=== PATIENT | male | born 1955 | race Caucasian/White ===

== ENCOUNTER 2018-10-26 18:47 | Inpatient (IN) | payer MEDICAID ==
[~2018-10-26] VITALS: Ht 180.3 cm; Wt 72.2 kg
--- NOTE | 2018-10-26 19:04 | NUR ---
ED Nurse Note: Pt biba lafd for C/O swelling of testicles and distended abd x 2 weeks ago. pt is alert x3.
[2018-10-26 19:08] VITALS: BP 130/82
--- NOTE | 2018-10-26 19:43 | Emergency Room Report ---
History of Present Illness General Chief Complaint: Pain Source: Patient Present Illness HPI Disclaimer: Please note that this report is being documented using DRAGON technology. This can lead to erroneous entry secondary to incorrect interpretation by the dictating instrument. HPI: 63-year-old male with no reported medical history presents for evaluation of scrotal edema and pain as well as difficulty breathing. Symptoms is been present for some time cannot fully quantify but states it is been at least a week. He notes worsening exertional dyspnea, shortness of breath and general without chest pain. He notes diffuse swelling of the skin from his abdomen down and enlargement of his scrotum with some pain. Reports some pain with urination. Denies any medical history including heart disease, CHF, COPD. He does smoke and states he quit 1 week ago. Denies alcohol use. Denies any recent fevers, chills, vomiting, diarrhea. PMH: None PSH: None Allergies: None Social Hx: Uses tobacco. Denies drugs or alcohol Allergies: Coded Allergies: No Known Allergies (Unverified , 10/26/18) Nursing Documentation-PMH History Of Psychiatric Problem: Yes - Schizophrenia Review of Systems All Other Systems: negative except mentioned in HPI Physical Exam Vital Signs Date Time Temp Pulse Resp B/P (MAP) Pulse Ox O2 Delivery O2 Flow Rate FiO2 10/26/18 18:59 97.7 114 18 115/82 (93) 98 Room Air General: Awake and alert, in mild distress HEENT: NC/AT. EOMI. dry mucous membrane. Neck: Supple, trachea midline Chest Wall: No tenderness, no deformity Cardiovascular: Tachycardic. S1 and S2 normal. No murmur appreciated Resp: Tachypnea. Increased work of breathing. No cough. Crackles bilaterally. No wheezing. Abdomen: Abdomen is distended. Nontender to palpation. Diffuse anasarca Skin: Diffuse anasarca over the entire abdomen and over the lower extremities bilaterally. Testicular enlargement. MSK: Normal tone and bulk. Moving all extremities. No obvious deformity. Neuro: Awake and alert. Mentating appropriately. Procedures Critical Care Time Critical Care Time Total critical care time: Approximately 45 minutes Due to a high probability of clinically significant, life threatening deterioration, the patient required the highest level of preparedness to intervene emergently and I personally spent this critical care time directly and personally managing the patient. This critical care time included obtaining a history, examining the patient, pulse oximetry, ordering and reviewing studies , ordering treatments, evaluating response to treatment and updating management plan as needed, frequent reassessment and discussion with other providers as well as arranging for ultimate disposition. This critical to care time was performed to assess and manage the high probability of life-threatening deterioration that could result in multiorgan failure. This critical care time is separate from the separately billable procedures and treating other patients. Ultrasound Ultrasound : Consent: Emergent Progress This is a procedure note for bedside cardiac ultrasound. Findings include cardiomegaly, trace pericardial effusion without significant right ventricle or right atrial collapse. Left ventricle appears somewhat enlarged. Medical Decision Making Diagnostic Impression: Primary Impression: AMRIT (acute kidney injury) Additional Impressions: CHF (congestive heart failure) Pericardial effusion Pleural effusion Pneumonia ER Course 33-year-old male presents for evaluation of shortness of breath, lower extremity edema, scrotal pain and swelling at least for 1 week. Patient has diffuse anasarca however there is abdomen and lower extremities. Differential includes but is not limited to new renal failure, hepatic failure, CHF, ACS, COPD. We will start a broad metabolic and infectious work-up. Patient will require admission. Laboratory Tests Test 10/26/18 19:30 10/26/18 19:59 10/26/18 21:40 White Blood Count 7.7 K/UL (4.8-10.8) Red Blood Count 5.33 M/UL (4.70-6.10) Hemoglobin 16.4 G/DL (14.2-18.0) Hematocrit 49.6 % (42.0-52.0) Mean Corpuscular Volume 93 FL (80-99) Mean Corpuscular Hemoglobin 30.8 PG (27.0-31.0) Mean Corpuscular Hemoglobin Concent 33.1 G/DL (32.0-36.0) Red Cell Distribution Width 13.8 % (11.6-14.8) Platelet Count 205 K/UL (150-450) Mean Platelet Volume 8.0 FL (6.5-10.1) Neutrophils (%) (Auto) 66.8 % (45.0-75.0) Lymphocytes (%) (Auto) 21.5 % (20.0-45.0) Monocytes (%) (Auto) 8.9 % (1.0-10.0) Eosinophils (%) (Auto) 1.4 % (0.0-3.0) Basophils (%) (Auto) 1.4 % (0.0-2.0) Prothrombin Time 12.8 SEC (9.30-11.50) H Prothrombin Time INR 1.2 (0.9-1.1) H PTT 27 SEC (23-33) Sodium Level 145 MMOL/L (136-145) Potassium Level 5.2 MMOL/L (3.5-5.1) H Chloride Level 109 MMOL/L (98-107) H Carbon Dioxide Level 28 MMOL/L (21-32) Anion Gap 8 mmol/L (5-15) Blood Urea Nitrogen 31 mg/dL (7-18) H Creatinine 1.4 MG/DL (0.55-1.30) H Estimate Glomerular Filtration Rate 51.4 mL/min (>60) Glucose Level 79 MG/DL (74-106) Calcium Level 9.4 MG/DL (8.5-10.1) Total Bilirubin 1.8 MG/DL (0.2-1.0) H Direct Bilirubin 0.8 MG/DL (0.0-0.3) H Aspartate Amino Transferase (AST) 33 U/L (15-37) Alanine Aminotransferase (ALT) 53 U/L (12-78) Alkaline Phosphatase 108 U/L (46-116) Total Creatine Kinase 100 U/L (26-308) Creatine Kinase MB 2.6 NG/ML (0.0-3.6) Creatine Kinase MB Relative Index 2.6 Troponin I 0.023 ng/mL (0.000-0.056) Pro-B-Type Natriuretic Peptide 76375 pg/mL (0-125) H Total Protein 6.5 G/DL (6.4-8.2) Albumin 3.3 G/DL (3.4-5.0) L Globulin 3.2 g/dL Albumin/Globulin Ratio 1.0 (1.0-2.7) Lipase 275 U/L (73-393) Arterial Blood pH 7.427 (7.350-7.450) Arterial Blood Partial Pressure CO2 34.3 mmHg (35.0-45.0) L Arterial Blood Partial Pressure O2 174.9 mmHg (75.0-100.0) H Arterial Blood HCO3 22.1 mmol/L (22.0-26.0) Arterial Blood Oxygen Saturation 99.0 % (95-100) Arterial Blood Base Excess -1.5 (-2-2) Alexi Test Positive Urine Color Yellow Urine Appearance Clear Urine pH 6 (4.5-8.0) Urine Specific [place] 1.015 (1.005-1.035) Urine Protein 2+ (NEGATIVE) H Urine Glucose (UA) Negative (NEGATIVE) Urine Ketones Negative (NEGATIVE) Urine Blood Negative (NEGATIVE) Urine Nitrite Negative (NEGATIVE) Urine Bilirubin Negative (NEGATIVE) Urine Urobilinogen 1 MG/DL (0.0-1.0) H Urine Leukocyte Esterase Negative (NEGATIVE) Urine RBC 0 /HPF (0 - 0) Urine WBC 0 /HPF (0 - 0) Urine Squamous Epithelial Cells None /LPF (NONE/OCC) Urine Amorphous Sediment Few /LPF (NONE) H Urine Bacteria Occasional /HPF (NONE) EKG Diagnostic Results EKG Time: 19:45 Rate: tachycardiac Rhythm: NSR Other Impression Sinus tachycardia rate 115 bpm, prolonged QTC at 522 ms, normal axis. Low voltage in the limb leads and left bundle branch block pattern in the precordial leads. Rhythm Strip Diag. Results Rhythm Strip Time: 19:45 EP Interpretation: yes Rate: 110s Rhythm: no PVC's, no ectopy Chest X-Ray Diagnostic Results Chest X-Ray Diagnostic Results : # of Views/Limited/Complete: 1 View Indication: Shortness of Breath EP Interpretation: Yes Interpretation: other - Cardiomegally, bilateral congestion, RLL effusion Impression: Other - Right-sided effusion, cardiomegaly, questionable infiltrate in the right lower lobe Electronically Signed by: Electronically signed by Dr. Korey Scott Reevaluation Time: 22:15 Last Vital Signs Date Time Temp Pulse Resp B/P (MAP) Pulse Ox O2 Delivery O2 Flow Rate FiO2 10/26/18 18:59 97.7 114 18 115/82 (93) 98 Room Air Reevaluation Impression EKG shows a left bundle branch block pattern with a elevated QTC. There is no prior for comparison. Limb leads have low voltage. Patient is found to have a right-sided pleural effusion, cardiomegaly elevated BN peptide with a negative troponin. A bedside ultrasound shows a trace pericardial effusion that does not appear to be hemodynamically significant. The left ventricle does seem somewhat enlarged concerning for new heart failure. He is responding well to Lasix. CTA of the chest was ordered for evaluate for pulmonary embolism however was not completed prior to the patient being taken to the floor and will be completed on the floor as an inpatient. Admitting team is aware. Admitting team has also ordered antibiotics for the possible right lower lobe infiltrate. White count is within normal limits. He will be admitted to the stepdown unit for close monitoring and further management. Disposition: ADMITTED INPATIENT Condition: Serious Korey Scott MD Oct 26, 2018 19:43
[2018-10-26] MEDS ORDERED: Ipratropium 0.02% Inh Soln 2.5ml UD HHN ONE (19:45)
[2018-10-26] MEDS: Albuterol ud Inhalation HHN SCH ×3 (19:51→20:24)
--- NOTE | 2018-10-26 19:54 | NUR ---
ED Nurse Note: xray a bed side
--- NOTE | 2018-10-26 19:54 | NUR ---
ED Nurse Note: blood sent down to lab
--- NOTE | 2018-10-26 20:02 | NUR ---
ED Nurse Note: pt unable to urinate and unable to be cath due to swelling. pt will notify us when he is ready to urinatet so urine can be collected. ER MD aware
[2018-10-26 20:13] LABS: BASOPHILS % (AUTO) 1.4 % (0.0-2.0); EOSINOPHILS % (AUTO) 1.4 % (0.0-3.0); HEMATOCRIT 49.6 % (42.0-52.0); HEMOGLOBIN 16.4 G/DL (14.2-18.0); LYMPHOCYTES % (AUTO) 21.5 % (20.0-45.0); MEAN CORPUSCULAR VOLUME 93 FL (80-99); MONOCYTES % (AUTO) 8.9 % (1.0-10.0); NEUTROPHILS % (AUTO) 66.8 % (45.0-75.0); PLATELET COUNT 205 K/UL (150-450); RED BLOOD COUNT 5.33 M/UL (4.70-6.10); RED CELL DISTRIBUTION WIDTH 13.8 % (11.6-14.8); WHITE BLOOD COUNT 7.7 K/UL (4.8-10.8)
[2018-10-26 20:16] LABS: INR 1.2 (0.9-1.1)
[2018-10-26 20:18] LABS: ANION GAP 8 mmol/L (5-15); BLOOD UREA NITROGEN 31 mg/dL (7-18); CALCIUM 9.4 MG/DL (8.5-10.1); CARBON DIOXIDE 28 MMOL/L (21-32); CHLORIDE 109 MMOL/L (98-107); CREATININE 1.4 MG/DL (0.55-1.30); POTASSIUM 5.2 MMOL/L (3.5-5.1); SODIUM 145 MMOL/L (136-145)
[2018-10-26 20:34] LABS: ALANINE AMINOTRANSFERASE 53 U/L (12-78); ALBUMIN 3.3 G/DL (3.4-5.0); ALKALINE PHOSPHATASE 108 U/L (46-116); ASPARTATE AMINO TRANSFERASE 33 U/L (15-37); BILIRUBIN,TOTAL 1.8 MG/DL (0.2-1.0); CKMB 2.6 NG/ML (0.0-3.6); CREATINE KINASE 100 U/L (26-308)
[2018-10-26 20:35] LABS: BILIRUBIN,DIRECT 0.8 MG/DL (0.0-0.3)
[2018-10-26] MEDS ORDERED: OLANZAPINE20 MG ORAL (21:38)
--- NOTE | 2018-10-26 21:40 | NUR ---
ED Nurse Note: urine sample sent down to lab
--- NOTE | 2018-10-26 22:25 | NUR ---
ER DISCHARGE NOTE: pt brought up to SDU rm 242 via gurney accompanied by 2 RNs in stable condition. Belonging list signed. report given to CINTHYA Kelsey
--- NOTE | 2018-10-26 22:30 | NUR ---
NURSE NOTES: Pt brought to the unit via [facility]. Report received from CINTHYA Henderson. Belonging checked with the RN. Skin intact. V/S 118/80, P 108, T 97.8, R 20, SaO2 95% Will put NC O2 2L. ST on bus monitor. Abd round and distended noted. Scrotal area swollen noted. BLE edema noted, pitting edema 3+ noted. IV on L AC 20G, SL. Bed in the lowest position. Side rails up x2. Call light within reach. Will continue to monitor.
--- NOTE | 2018-10-26 22:40 | NUR ---
NURSE NOTES: at the bed side and give admitting orders.
[2018-10-26] MEDS ORDERED: Isovue-370 150ml vial INJ PRN (22:45)
[2018-10-26 22:48] LABS: APPEARANCE,URINE CLEAR; BILIRUBIN, URINE NEGATIVE (NEGATIVE); COLOR,URINE YELLOW; GLUCOSE, URINE (UA) NEGATIVE (NEGATIVE); KETONES,URINE NEGATIVE (NEGATIVE); LEUKOCYTE ESTERASE ,URINE NEGATIVE (NEGATIVE); NITRITE,URINE NEGATIVE (NEGATIVE); PH,URINE 6 (4.5-8.0); PROTEIN,URINE 2+ (NEGATIVE); UROBILINOGEN,URINE 1 MG/DL (0.0-1.0)
[2018-10-27] VITALS: BP 111/75
[2018-10-27] MEDS: cefTRIAXone 1 GM in D5W 55 ML IVPB SCH ×2 (00:50→23:44)
--- NOTE | 2018-10-27 02:23 | NUR ---
NURSE NOTES: Observed pt watching television. No acute distress noted. SR with immigration specialist noted. Will continue to monitor.
[2018-10-27 04:00] VITALS: BP 107/66
[2018-10-27 04:49] LABS: EOSINOPHILS % (AUTO) 1.2 % (0.0-3.0); HEMATOCRIT 43.9 % (42.0-52.0); HEMOGLOBIN 13.9 G/DL (14.2-18.0); LYMPHOCYTES % (AUTO) 20.7 % (20.0-45.0); MEAN CORPUSCULAR VOLUME 96 FL (80-99); MONOCYTES % (AUTO) 10.9 % (1.0-10.0); NEUTROPHILS % (AUTO) 66.2 % (45.0-75.0); PLATELET COUNT 171 K/UL (150-450); RED BLOOD COUNT 4.56 M/UL (4.70-6.10); RED CELL DISTRIBUTION WIDTH 14.2 % (11.6-14.8); WHITE BLOOD COUNT 6.7 K/UL (4.8-10.8)
[2018-10-27 05:01] LABS: ANION GAP 7 mmol/L (5-15); BLOOD UREA NITROGEN 29 mg/dL (7-18); CALCIUM 8.5 MG/DL (8.5-10.1); CARBON DIOXIDE 30 MMOL/L (21-32); CHLORIDE 109 MMOL/L (98-107); CREATININE 1.3 MG/DL (0.55-1.30); POTASSIUM 3.8 MMOL/L (3.5-5.1); SODIUM 146 MMOL/L (136-145)
--- NOTE | 2018-10-27 07:23 | NUR ---
HAND-OFF: Report given to Keyana fontenot RN. No acute distress noted at this time.
--- NOTE | 2018-10-27 07:30 | NUR ---
NURSE NOTES: Received the patient from CINTHYA Kelsey. Patient is awake, alert and oriented. Ambulated to the bathroom with assist. Patient on room air. SR-ST 110s noted on the surveillance system monitor. VSS. Patient noted with bilateral lower extremities and scrotum. Left AC 20G intact, saline locked. Bed in lowest position, locked, side rails upx2. Call light within reach. Will continue to monitor.
--- NOTE | 2018-10-27 07:37 | General Progress Note ---
Assessment/Plan Problem List: (1) CHF (congestive heart failure) ICD Codes: I50.9 - Heart failure, unspecified SNOMED: 49167401 (2) Pericardial effusion ICD Codes: I31.3 - Pericardial effusion (noninflammatory) SNOMED: 412169671 (3) Pleural effusion ICD Codes: J90 - Pleural effusion, not elsewhere classified SNOMED: 17339187 (4) Pneumonia ICD Codes: J18.9 - Pneumonia, unspecified organism SNOMED: 860156527 (5) AMRIT (acute kidney injury) ICD Codes: N17.9 - Acute kidney failure, unspecified SNOMED: 5917121, 46796869 Assessment/Plan: drug screen hepatitis panel fu pulm and cardiology recs colace Subjective ROS Limited/Unobtainable: Yes Allergies: Coded Allergies: No Known Allergies (Unverified , 10/26/18) Subjective c/o SOB Objective Last 24 Hour Vital Signs Date Time Temp Pulse Resp B/P (MAP) Pulse Ox O2 Delivery O2 Flow Rate FiO2 10/27/18 04:00 Nasal Cannula 2.0 10/27/18 04:00 97.5 94 28 107/66 (80) 98 10/27/18 04:00 96 10/27/18 04:00 2.0 10/27/18 00:00 2.0 10/27/18 00:00 Nasal Cannula 2.0 10/27/18 00:00 105 10/27/18 00:00 97.2 99 28 111/75 (87) 98 10/26/18 23:09 Nasal Cannula 2.0 10/26/18 22:25 98.0 118 22 144/88 99 Room Air 10/26/18 20:36 120 20 100 Room Air 21 120 20 100 10/26/18 20:25 120 20 100 Room Air 21 119 20 100 10/26/18 20:11 119 20 100 Room Air 21 113 20 96 10/26/18 19:50 113 20 96 Room Air 21 10/26/18 19:08 98.0 118 25 130/82 100 Room Air 10/26/18 18:59 97.7 114 18 115/82 (93) 98 Room Air Intake and Output 10/26/18 10/27/18 18:59 06:59 Intake Total 55 ml Output Total 800 ml Balance -745 ml Intake Oral 0 ml IV Total 55 ml Output Urine Total 800 ml # Voids 8 Laboratory Tests 10/26/18 19:30: White Blood Count 7.7, Red Blood Count 5.33, Hemoglobin 16.4, Hematocrit 49.6, Mean Corpuscular Volume 93, Mean Corpuscular Hemoglobin 30.8, Mean Corpuscular Hemoglobin Concent 33.1, Red Cell Distribution Width 13.8, Platelet Count 205, Mean Platelet Volume 8.0, Neutrophils (%) (Auto) 66.8, Lymphocytes (%) (Auto) 21.5, Monocytes (%) (Auto) 8.9, Eosinophils (%) (Auto) 1.4, Basophils (%) (Auto ) 1.4, Prothrombin Time 12.8H, Prothromb Time International Ratio 1.2H, Activated Partial Thromboplast Time 27, Sodium Level 145, Potassium Level 5.2H, Chloride Level 109H, Carbon Dioxide Level 28, Anion Gap 8, Blood Urea Nitrogen 31H, Creatinine 1.4H, Estimat Glomerular Filtration Rate 51.4, Glucose Level 79 , Calcium Level 9.4, Total Bilirubin 1.8H, Direct Bilirubin 0.8H, Aspartate Amino Transf (AST/SGOT) 33, Alanine Aminotransferase (ALT/SGPT) 53, Alkaline Phosphatase 108, Total Creatine Kinase 100, Creatine Kinase MB 2.6, Creatine Kinase MB Relative Index 2.6, Troponin I 0.023, Pro-B-Type Natriuretic Peptide 90267A, Total Protein 6.5, Albumin 3.3L, Globulin 3.2, Albumin/Globulin Ratio 1.0, Lipase 275 10/26/18 19:59: Arterial Blood pH 7.427, Arterial Blood Partial Pressure CO2 34.3L, Arterial Blood Partial Pressure O2 174.9H, Arterial Blood HCO3 22.1, Arterial Blood Oxygen Saturation 99.0, Arterial Blood Base Excess -1.5, Alexi Test Positive 10/26/18 21:40: Urine Color Yellow, Urine Appearance Clear, Urine pH 6, Urine Specific [place] 1.015, Urine Protein 2+H, Urine Glucose (UA) Negative, Urine Ketones Negative, Urine Blood Negative, Urine Nitrite Negative, Urine Bilirubin Negative, Urine Urobilinogen 1H, Urine Leukocyte Esterase Negative, Urine RBC 0, Urine WBC 0, Urine Squamous Epithelial Cells None, Urine Amorphous Sediment FewH, Urine Bacteria Occasional 10/27/18 02:55: White Blood Count 6.7, Red Blood Count 4.56L, Hemoglobin 13.9L, Hematocrit 43.9 , Mean Corpuscular Volume 96, Mean Corpuscular Hemoglobin 30.5, Mean Corpuscular Hemoglobin Concent 31.7L, Red Cell Distribution Width 14.2, Platelet Count 171, Mean Platelet Volume 8.5, Neutrophils (%) (Auto) 66.2, Lymphocytes (%) (Auto) 20.7, Monocytes (%) (Auto) 10.9H, Eosinophils (%) (Auto) 1.2, Basophils (%) (Auto) 1.0, Sodium Level 146H, Potassium Level 3.8, Chloride Level 109H, Carbon Dioxide Level 30, Anion Gap 7, Blood Urea Nitrogen 29H, Creatinine 1.3, Estimat Glomerular Filtration Rate 55.9, Glucose Level 96, Calcium Level 8.5 Height (Feet): 5 Height (Inches): 11.00 Weight (Pounds): 201 General Appearance: alert EENT: normal ENT inspection Neck: supple Cardiovascular: normal rate Respiratory/Chest: decreased breath sounds Abdomen: normal bowel sounds, non tender, soft Extremities: non-tender Danny Natarajan MD Oct 27, 2018 07:37
[2018-10-27 08:00] VITALS: BP 108/75
--- NOTE | 2018-10-27 08:33 | Pulmonology Progress Note ---
Assessment/Plan Assessment/Plan Pulmonary Consultation HPI Patient is a 63-year old man with admitted with shortness of breath, lower extremity and scrotal edema/pain. Denies cough, no chest pain. Noted to have features of CHF right lower lobe infiltrate/effusion. Symptoms is been present for at least a week. He notes worsening exertional dyspnea, diffuse swelling, has some pain with urination. Denies any medical history including heart disease, CHF, COPD. He does smoke and states he quit 1 week ago. Denies alcohol use. Denies any recent fevers, chills, vomiting, diarrhea. PMH: Schizophrenia Allergies: NKDA Social Hx: Uses tobacco. Denies drugs or alcohol All Other Systems: negative except mentioned in HPI Physical Exam Vital Signs Noted Date Time Temp Pulse Resp B/P (MAP) Pulse Ox O2 Delivery O2 Flow Rate FiO2 10/26/18 18:59 97.7 114 18 115/82 (93) 98 Room Air General: Awake and alert, note distressed on oxygen HEENT: NCAT. EOMI. Neck: Supple, No LN Chest Wall: No tenderness, no deformity Cardiovascular: Tachycardic. RRR. S1 and S2 normal. No murmur noted. Resp: Basal crackles bilaterally. No wheezing. Reduced right basal BS Abdomen: Abdomen is distended. Nontender to palpation. Diffuse anasarca Skin: Diffuse anasarca over the entire abdomen and over the lower extremities bilaterally. Testicular enlargement. MSK: Normal tone and bulk. Moving all extremities. No obvious deformity. Neuro: Awake and alert. No focal signs. Bedside Echo in ED: Findings include cardiomegaly, trace pericardial effusion without significant right ventricle or right atrial collapse. Left ventricle appears somewhat enlarged. Impression: Congestive Heart Failure Right sided Pulmonary Infiltrates s/o Pneumonia Right pleural effusion AMRIT (acute kidney injury) Small Pericardial effusion Plan: Diurese PRN Ceftraixone/Doxycycline Monitor labs PPX O2 PRN Thor[address] evaluation R/O DVT Laboratory Tests Noted Test 10/26/18 19:30 10/26/18 19:59 10/26/18 21:40 White Blood Count 7.7 K/UL (4.8-10.8) Red Blood Count 5.33 M/UL (4.70-6.10) Hemoglobin 16.4 G/DL (14.2-18.0) Hematocrit 49.6 % (42.0-52.0) Mean Corpuscular Volume 93 FL (80-99) Mean Corpuscular Hemoglobin 30.8 PG (27.0-31.0) Mean Corpuscular Hemoglobin Concent 33.1 G/DL (32.0-36.0) Red Cell Distribution Width 13.8 % (11.6-14.8) Platelet Count 205 K/UL (150-450) Mean Platelet Volume 8.0 FL (6.5-10.1) Neutrophils (%) (Auto) 66.8 % (45.0-75.0) Lymphocytes (%) (Auto) 21.5 % (20.0-45.0) Monocytes (%) (Auto) 8.9 % (1.0-10.0) Eosinophils (%) (Auto) 1.4 % (0.0-3.0) Basophils (%) (Auto) 1.4 % (0.0-2.0) Prothrombin Time 12.8 SEC (9.30-11.50) H Prothrombin Time INR 1.2 (0.9-1.1) H PTT 27 SEC (23-33) Sodium Level 145 MMOL/L (136-145) Potassium Level 5.2 MMOL/L (3.5-5.1) H Chloride Level 109 MMOL/L (98-107) H Carbon Dioxide Level 28 MMOL/L (21-32) Anion Gap 8 mmol/L (5-15) Blood Urea Nitrogen 31 mg/dL (7-18) H Creatinine 1.4 MG/DL (0.55-1.30) H Estimate Glomerular Filtration Rate 51.4 mL/min (>60) Glucose Level 79 MG/DL (74-106) Calcium Level 9.4 MG/DL (8.5-10.1) Total Bilirubin 1.8 MG/DL (0.2-1.0) H Direct Bilirubin 0.8 MG/DL (0.0-0.3) H Aspartate Amino Transferase (AST) 33 U/L (15-37) Alanine Aminotransferase (ALT) 53 U/L (12-78) Alkaline Phosphatase 108 U/L (46-116) Total Creatine Kinase 100 U/L (26-308) Creatine Kinase MB 2.6 NG/ML (0.0-3.6) Creatine Kinase MB Relative Index 2.6 Troponin I 0.023 ng/mL (0.000-0.056) Pro-B-Type Natriuretic Peptide 99891 pg/mL (0-125) H Total Protein 6.5 G/DL (6.4-8.2) Albumin 3.3 G/DL (3.4-5.0) L Globulin 3.2 g/dL Albumin/Globulin Ratio 1.0 (1.0-2.7) Lipase 275 U/L (73-393) Arterial Blood pH 7.427 (7.350-7.450) Arterial Blood Partial Pressure CO2 34.3 mmHg (35.0-45.0) L Arterial Blood Partial Pressure O2 174.9 mmHg (75.0-100.0) H Arterial Blood HCO3 22.1 mmol/L (22.0-26.0) Arterial Blood Oxygen Saturation 99.0 % (95-100) Arterial Blood Base Excess -1.5 (-2-2) Alexi Test Positive Urine Color Yellow Urine Appearance Clear Urine pH 6 (4.5-8.0) Urine Specific [place] 1.015 (1.005-1.035) Urine Protein 2+ (NEGATIVE) H Urine Glucose (UA) Negative (NEGATIVE) Urine Ketones Negative (NEGATIVE) Urine Blood Negative (NEGATIVE) Urine Nitrite Negative (NEGATIVE) Urine Bilirubin Negative (NEGATIVE) Urine Urobilinogen 1 MG/DL (0.0-1.0) H Urine Leukocyte Esterase Negative (NEGATIVE) Urine RBC 0 /HPF (0 - 0) Urine WBC 0 /HPF (0 - 0) Urine Squamous Epithelial Cells None /LPF (NONE/OCC) Urine Amorphous Sediment Few /LPF (NONE) H Urine Bacteria Occasional /HPF (NONE) EKG: Rate: tachycardiac Rhythm: NSR, Sinus tachycardia rate 115 bpm, prolonged QTC at 522 ms, normal axis. Low voltage in the limb leads and left bundle branch block pattern in the precordial leads. Chest X-Ray: Cardiomegaly, bilateral congestion, RLL effusion, questionable infiltrate in the right lower lobe Subjective ROS Limited/Unobtainable: No Allergies: Coded Allergies: No Known Allergies (Unverified , 10/26/18) Objective Last 24 Hour Vital Signs Date Time Temp Pulse Resp B/P (MAP) Pulse Ox O2 Delivery O2 Flow Rate FiO2 10/27/18 08:00 2.0 10/27/18 04:00 Nasal Cannula 2.0 10/27/18 04:00 97.5 94 28 107/66 (80) 98 10/27/18 04:00 96 10/27/18 04:00 2.0 10/27/18 00:00 2.0 10/27/18 00:00 Nasal Cannula 2.0 10/27/18 00:00 105 10/27/18 00:00 97.2 99 28 111/75 (87) 98 10/26/18 23:09 Nasal Cannula 2.0 10/26/18 22:25 98.0 118 22 144/88 99 Room Air 10/26/18 20:36 120 20 100 Room Air 21 120 20 100 10/26/18 20:25 120 20 100 Room Air 21 119 20 100 10/26/18 20:11 119 20 100 Room Air 21 113 20 96 10/26/18 19:50 113 20 96 Room Air 21 10/26/18 19:08 98.0 118 25 130/82 100 Room Air 10/26/18 18:59 97.7 114 18 115/82 (93) 98 Room Air Intake and Output 10/26/18 10/27/18 18:59 06:59 Intake Total 55 ml Output Total 800 ml Balance -745 ml Intake Oral 0 ml IV Total 55 ml Output Urine Total 800 ml # Voids 8 Laboratory Tests 10/26/18 19:30: White Blood Count 7.7, Red Blood Count 5.33, Hemoglobin 16.4, Hematocrit 49.6, Mean Corpuscular Volume 93, Mean Corpuscular Hemoglobin 30.8, Mean Corpuscular Hemoglobin Concent 33.1, Red Cell Distribution Width 13.8, Platelet Count 205, Mean Platelet Volume 8.0, Neutrophils (%) (Auto) 66.8, Lymphocytes (%) (Auto) 21.5, Monocytes (%) (Auto) 8.9, Eosinophils (%) (Auto) 1.4, Basophils (%) (Auto ) 1.4, Prothrombin Time 12.8H, Prothromb Time International Ratio 1.2H, Activated Partial Thromboplast Time 27, Sodium Level 145, Potassium Level 5.2H, Chloride Level 109H, Carbon Dioxide Level 28, Anion Gap 8, Blood Urea Nitrogen 31H, Creatinine 1.4H, Estimat Glomerular Filtration Rate 51.4, Glucose Level 79 , Calcium Level 9.4, Total Bilirubin 1.8H, Direct Bilirubin 0.8H, Aspartate Amino Transf (AST/SGOT) 33, Alanine Aminotransferase (ALT/SGPT) 53, Alkaline Phosphatase 108, Total Creatine Kinase 100, Creatine Kinase MB 2.6, Creatine Kinase MB Relative Index 2.6, Troponin I 0.023, Pro-B-Type Natriuretic Peptide 12656U, Total Protein 6.5, Albumin 3.3L, Globulin 3.2, Albumin/Globulin Ratio 1.0, Lipase 275 10/26/18 19:59: Arterial Blood pH 7.427, Arterial Blood Partial Pressure CO2 34.3L, Arterial Blood Partial Pressure O2 174.9H, Arterial Blood HCO3 22.1, Arterial Blood Oxygen Saturation 99.0, Arterial Blood Base Excess -1.5, Alexi Test Positive 10/26/18 21:40: Urine Color Yellow, Urine Appearance Clear, Urine pH 6, Urine Specific [place] 1.015, Urine Protein 2+H, Urine Glucose (UA) Negative, Urine Ketones Negative, Urine Blood Negative, Urine Nitrite Negative, Urine Bilirubin Negative, Urine Urobilinogen 1H, Urine Leukocyte Esterase Negative, Urine RBC 0, Urine WBC 0, Urine Squamous Epithelial Cells None, Urine Amorphous Sediment FewH, Urine Bacteria Occasional 10/27/18 02:55: White Blood Count 6.7, Red Blood Count 4.56L, Hemoglobin 13.9L, Hematocrit 43.9 , Mean Corpuscular Volume 96, Mean Corpuscular Hemoglobin 30.5, Mean Corpuscular Hemoglobin Concent 31.7L, Red Cell Distribution Width 14.2, Platelet Count 171, Mean Platelet Volume 8.5, Neutrophils (%) (Auto) 66.2, Lymphocytes (%) (Auto) 20.7, Monocytes (%) (Auto) 10.9H, Eosinophils (%) (Auto) 1.2, Basophils (%) (Auto) 1.0, Sodium Level 146H, Potassium Level 3.8, Chloride Level 109H, Carbon Dioxide Level 30, Anion Gap 7, Blood Urea Nitrogen 29H, Creatinine 1.3, Estimat Glomerular Filtration Rate 55.9, Glucose Level 96, Calcium Level 8.5 Current Medications Medications (Trade) Dose Ordered Sig/Judah Route PRN Reason Start Time Stop Time Status Last Admin Dose Admin Ceftriaxone Sodium 1 gm/ Dextrose 55 ml @ 110 mls/hr Q24H IVPB 10/27/18 00:00 11/03/18 00:00 10/27/18 00:50 Doxycycline Hyclate 100 mg/ Dextrose 110 ml @ 110 mls/hr Q12HR IV 10/27/18 09:00 11/03/18 08:59 Furosemide (Lasix) 40 mg DAILY IV 10/27/18 09:00 11/26/18 08:59 Heparin Sodium (Porcine) (Heparin 5000 units/ml) 5,000 units EVERY 12 HOURS SUBQ 10/27/18 09:00 11/26/18 08:59 Iopamidol (Isovue-370 150ml) 150 ml NOW PRN INJ Radiology Procedure 10/26/18 22:45 10/28/18 22:33 Olanzapine (ZyPREXA Zydis) 20 mg DAILY ORAL 10/27/18 09:00 11/26/18 08:59 Thiamine HCl (Vitamin B1) 100 mg DAILY ORAL 10/27/18 09:00 11/26/18 08:59 Lexa El MD Oct 27, 2018 08:33
[2018-10-27] MEDS ORDERED: ZyPREXA Zydis 10mg tab ORAL SCH (09:00)
[2018-10-27] MEDS ORDERED: Thiamine 100mg tab ORAL SCH (09:00)
[2018-10-27] MEDS: Doxycycline Hyclate 100 MG in D5W 110 ML IV SCH ×2 (09:05→21:14)
[2018-10-27] MEDS: Heparin 5000 units/ml inj SUBQ SCH ×2 (09:10→21:16)
--- NOTE | 2018-10-27 09:37 | Consultation ---
Consult Note Consult Note asked to eval at the request of Dr Barlow for Anasarca and renal failure Patient poor historian denies kidney problem ER note HPI: 63-year-old male with no reported medical history presents for evaluation of scrotal edema and pain as well as difficulty breathing. Symptoms is been present for some time cannot fully quantify but states it is been at least a week. He notes worsening exertional dyspnea, shortness of breath and general without chest pain. He notes diffuse swelling of the skin from his abdomen down and enlargement of his scrotum with some pain. Reports some pain with urination. Denies any medical history including heart disease, CHF, COPD. He does smoke and states he quit 1 week ago. Denies alcohol use. Denies any recent fevers, chills, vomiting, diarrhea. Allergies: None Social Hx: Uses tobacco. Denies drugs or alcohol History Of Psychiatric Problem: Yes - Schizophrenia examined data reviewed has anasarca . Assessment/Plan Anasarca: ? Renal , ? Cardiac , ?Hepatic Has proteinuria Cr mildly elevated SugD Echo Abd KEIRA 24 H urine CrCl and Total Protein Monitor renal parameters TFT HgbA1c further comments after above Jasbir Corbin MD Oct 27, 2018 09:37
[2018-10-27 10:36] LABS: BASOPHILS % (AUTO) 1.2 % (0.0-2.0); EOSINOPHILS % (AUTO) 1.5 % (0.0-3.0); HEMATOCRIT 47.3 % (42.0-52.0); LYMPHOCYTES % (AUTO) 15.6 % (20.0-45.0); MEAN CORPUSCULAR VOLUME 95 FL (80-99); MONOCYTES % (AUTO) 10.6 % (1.0-10.0); PLATELET COUNT 203 K/UL (150-450); RED BLOOD COUNT 4.96 M/UL (4.70-6.10); RED CELL DISTRIBUTION WIDTH 14.3 % (11.6-14.8); WHITE BLOOD COUNT 6.6 K/UL (4.8-10.8)
[2018-10-27 10:55] LABS: AMMONIA 54 umol/L (11-32); ANION GAP 8 mmol/L (5-15); BLOOD UREA NITROGEN 26 mg/dL (7-18); CALCIUM 8.6 MG/DL (8.5-10.1); CARBON DIOXIDE 28 MMOL/L (21-32); CHLORIDE 109 MMOL/L (98-107); CREATININE 1.2 MG/DL (0.55-1.30); SODIUM 145 MMOL/L (136-145)
--- NOTE | 2018-10-27 11:00 | NUR ---
NURSE NOTES: 24 urine collection initiated. Patient education provided.
[2018-10-27 11:07] LABS: ALANINE AMINOTRANSFERASE 39 U/L (12-78); ALBUMIN 2.8 G/DL (3.4-5.0); ALBUMIN/GLOBULIN RATIO 0.9 (1.0-2.7); ALKALINE PHOSPHATASE 88 U/L (46-116); ASPARTATE AMINO TRANSFERASE 30 U/L (15-37); BILIRUBIN,DIRECT 0.6 MG/DL (0.0-0.3); BILIRUBIN,TOTAL 1.5 MG/DL (0.2-1.0); CHOLESTEROL 104 MG/DL (< 200); CREATINE KINASE 77 U/L (26-308); GAMMA GLUTAMYL TRANSPEPTIDASE 116 U/L (5-85); HDL CHOLESTEROL 34 MG/DL (40-60); PHOSPHORUS 3.8 MG/DL (2.5-4.9); TRIGLYCERIDES 63 MG/DL (30-150)
--- NOTE | 2018-10-27 11:48 | Cardiac Electrophysiology PN ---
Subjective Subjective [id number] Objective Last 24 Hour Vital Signs Date Time Temp Pulse Resp B/P (MAP) Pulse Ox O2 Delivery O2 Flow Rate FiO2 10/27/18 08:00 Nasal Cannula 2.0 10/27/18 08:00 2.0 10/27/18 08:00 116 10/27/18 08:00 98.0 90 18 108/75 (86) 96 10/27/18 04:00 Nasal Cannula 2.0 10/27/18 04:00 97.5 94 28 107/66 (80) 98 10/27/18 04:00 96 10/27/18 04:00 2.0 10/27/18 00:00 2.0 10/27/18 00:00 Nasal Cannula 2.0 10/27/18 00:00 105 10/27/18 00:00 97.2 99 28 111/75 (87) 98 10/26/18 23:09 Nasal Cannula 2.0 10/26/18 22:25 98.0 118 22 144/88 99 Room Air 10/26/18 20:36 120 20 100 Room Air 21 120 20 100 10/26/18 20:25 120 20 100 Room Air 21 119 20 100 10/26/18 20:11 119 20 100 Room Air 21 113 20 96 10/26/18 19:50 113 20 96 Room Air 21 10/26/18 19:08 98.0 118 25 130/82 100 Room Air 10/26/18 18:59 97.7 114 18 115/82 (93) 98 Room Air Intake and Output 10/26/18 10/27/18 19:00 07:00 Intake Total 55 ml Output Total 800 ml Balance -745 ml Intake Oral 0 ml IV Total 55 ml Output Urine Total 800 ml # Voids 8 Laboratory Tests Test 10/26/18 19:30 10/26/18 19:59 10/26/18 21:40 10/27/18 02:55 White Blood Count 7.7 K/UL (4.8-10.8) 6.7 K/UL (4.8-10.8) Red Blood Count 5.33 M/UL (4.70-6.10) 4.56 M/UL (4.70-6.10) L Hemoglobin 16.4 G/DL (14.2-18.0) 13.9 G/DL (14.2-18.0) L Hematocrit 49.6 % (42.0-52.0) 43.9 % (42.0-52.0) Mean Corpuscular Volume 93 FL (80-99) 96 FL (80-99) Mean Corpuscular Hemoglobin 30.8 PG (27.0-31.0) 30.5 PG (27.0-31.0) Mean Corpuscular Hemoglobin Concent 33.1 G/DL (32.0-36.0) 31.7 G/DL (32.0-36.0) L Red Cell Distribution Width 13.8 % (11.6-14.8) 14.2 % (11.6-14.8) Platelet Count 205 K/UL (150-450) 171 K/UL (150-450) Mean Platelet Volume 8.0 FL (6.5-10.1) 8.5 FL (6.5-10.1) Neutrophils (%) (Auto) 66.8 % (45.0-75.0) 66.2 % (45.0-75.0) Lymphocytes (%) (Auto) 21.5 % (20.0-45.0) 20.7 % (20.0-45.0) Monocytes (%) (Auto) 8.9 % (1.0-10.0) 10.9 % (1.0-10.0) H Eosinophils (%) (Auto) 1.4 % (0.0-3.0) 1.2 % (0.0-3.0) Basophils (%) (Auto) 1.4 % (0.0-2.0) 1.0 % (0.0-2.0) Prothrombin Time 12.8 SEC (9.30-11.50) H Prothromb Time International Ratio 1.2 (0.9-1.1) H Activated Partial Thromboplast Time 27 SEC (23-33) Sodium Level 145 MMOL/L (136-145) 146 MMOL/L (136-145) H Potassium Level 5.2 MMOL/L (3.5-5.1) H 3.8 MMOL/L (3.5-5.1) Chloride Level 109 MMOL/L (98-107) H 109 MMOL/L (98-107) H Carbon Dioxide Level 28 MMOL/L (21-32) 30 MMOL/L (21-32) Anion Gap 8 mmol/L (5-15) 7 mmol/L (5-15) Blood Urea Nitrogen 31 mg/dL (7-18) H 29 mg/dL (7-18) H Creatinine 1.4 MG/DL (0.55-1.30) H 1.3 MG/DL (0.55-1.30) Estimat Glomerular Filtration Rate 51.4 mL/min (>60) 55.9 mL/min (>60) Glucose Level 79 MG/DL (74-106) 96 MG/DL (74-106) Calcium Level 9.4 MG/DL (8.5-10.1) 8.5 MG/DL (8.5-10.1) Total Bilirubin 1.8 MG/DL (0.2-1.0) H Direct Bilirubin 0.8 MG/DL (0.0-0.3) H Aspartate Amino Transf (AST/SGOT) 33 U/L (15-37) Alanine Aminotransferase (ALT/SGPT) 53 U/L (12-78) Alkaline Phosphatase 108 U/L (46-116) Total Creatine Kinase 100 U/L (26-308) Creatine Kinase MB 2.6 NG/ML (0.0-3.6) Creatine Kinase MB Relative Index 2.6 Troponin I 0.023 ng/mL (0.000-0.056) Pro-B-Type Natriuretic Peptide 34626 pg/mL (0-125) H Total Protein 6.5 G/DL (6.4-8.2) Albumin 3.3 G/DL (3.4-5.0) L Globulin 3.2 g/dL Albumin/Globulin Ratio 1.0 (1.0-2.7) Lipase 275 U/L (73-393) Arterial Blood pH 7.427 (7.350-7.450) Arterial Blood Partial Pressure CO2 34.3 mmHg (35.0-45.0) L Arterial Blood Partial Pressure O2 174.9 mmHg (75.0-100.0) H Arterial Blood HCO3 22.1 mmol/L (22.0-26.0) Arterial Blood Oxygen Saturation 99.0 % (95-100) Arterial Blood Base Excess -1.5 (-2-2) Alexi Test Positive Urine Color Yellow Urine Appearance Clear Urine pH 6 (4.5-8.0) Urine Specific [place] 1.015 (1.005-1.035) Urine Protein 2+ (NEGATIVE) H Urine Glucose (UA) Negative (NEGATIVE) Urine Ketones Negative (NEGATIVE) Urine Blood Negative (NEGATIVE) Urine Nitrite Negative (NEGATIVE) Urine Bilirubin Negative (NEGATIVE) Urine Urobilinogen 1 MG/DL (0.0-1.0) H Urine Leukocyte Esterase Negative (NEGATIVE) Urine RBC 0 /HPF (0 - 0) Urine WBC 0 /HPF (0 - 0) Urine Squamous Epithelial Cells None /LPF (NONE/OCC) Urine Amorphous Sediment Few /LPF (NONE) H Urine Bacteria Occasional /HPF (NONE) Test 10/27/18 10:15 White Blood Count 6.6 K/UL (4.8-10.8) Red Blood Count 4.96 M/UL (4.70-6.10) Hemoglobin 15.0 G/DL (14.2-18.0) Hematocrit 47.3 % (42.0-52.0) Mean Corpuscular Volume 95 FL (80-99) Mean Corpuscular Hemoglobin 30.2 PG (27.0-31.0) Mean Corpuscular Hemoglobin Concent 31.7 G/DL (32.0-36.0) L Red Cell Distribution Width 14.3 % (11.6-14.8) Platelet Count 203 K/UL (150-450) Mean Platelet Volume 9.2 FL (6.5-10.1) Neutrophils (%) (Auto) 71.0 % (45.0-75.0) Lymphocytes (%) (Auto) 15.6 % (20.0-45.0) L Monocytes (%) (Auto) 10.6 % (1.0-10.0) H Eosinophils (%) (Auto) 1.5 % (0.0-3.0) Basophils (%) (Auto) 1.2 % (0.0-2.0) Sodium Level 145 MMOL/L (136-145) Potassium Level 4.0 MMOL/L (3.5-5.1) Chloride Level 109 MMOL/L (98-107) H Carbon Dioxide Level 28 MMOL/L (21-32) Anion Gap 8 mmol/L (5-15) Blood Urea Nitrogen 26 mg/dL (7-18) H Creatinine 1.2 MG/DL (0.55-1.30) Estimat Glomerular Filtration Rate > 60 mL/min (>60) Glucose Level 113 MG/DL (74-106) H Hemoglobin A1c 6.0 % (4.3-6.0) Uric Acid 8.6 MG/DL (2.6-7.2) H Calcium Level 8.6 MG/DL (8.5-10.1) Phosphorus Level 3.8 MG/DL (2.5-4.9) Magnesium Level 2.1 MG/DL (1.8-2.4) Total Bilirubin 1.5 MG/DL (0.2-1.0) H Direct Bilirubin 0.6 MG/DL (0.0-0.3) H Gamma Glutamyl Transpeptidase 116 U/L (5-85) H Aspartate Amino Transf (AST/SGOT) 30 U/L (15-37) Alanine Aminotransferase (ALT/SGPT) 39 U/L (12-78) Alkaline Phosphatase 88 U/L (46-116) Ammonia 54 umol/L (11-32) H Total Creatine Kinase 77 U/L (26-308) C-Reactive Protein, Quantitative 1.5 mg/dL (0.00-0.90) H Pro-B-Type Natriuretic Peptide 97841 pg/mL (0-125) H Total Protein 5.8 G/DL (6.4-8.2) L Albumin 2.8 G/DL (3.4-5.0) L Globulin 3.0 g/dL Albumin/Globulin Ratio 0.9 (1.0-2.7) L Triglycerides Level 63 MG/DL (30-150) Cholesterol Level 104 MG/DL (< 200) LDL Cholesterol 57 mg/dL (<100) HDL Cholesterol 34 MG/DL (40-60) L Cholesterol/HDL Ratio 3.1 (3.3-4.4) L Vitamin B12 Level 1728 PG/ML (193-986) H Folate 17.5 NG/ML (8.6-58.9) Thyroid Stimulating Hormone (TSH) 1.976 uiU/mL (0.358-3.740) Teofilo Rollins MD Oct 27, 2018 11:48
--- NOTE | 2018-10-27 11:50 | Diagnostic Imaging Report ---
Indication: Shortness of breath Technique: One view of the chest Comparison: none Findings: The heart is enlarged. There is pleural fluid on the right. There is an 3 cm masslike opacity the right lung base. The left lung and pleural space are probably clear. Impression: Ana Right-sided pleural effusion Right basilar masslike opacity, probably some focal infiltrate or intrafissural fluid but true mass is not excludable. Follow-up radiographs until resolution are recommended
[2018-10-27 12:00] VITALS: BP 109/77
--- NOTE | 2018-10-27 12:00 | NUR ---
NURSE NOTES: Dr. Natarajan made aware of ammonia 54, no new orders at this time.
--- NOTE | 2018-10-27 12:05 | NUR ---
RADIOLOGY DEPT., CHEST X-RAY DONE.-P.DYE
--- NOTE | 2018-10-27 12:30 | NUR ---
NURSE NOTES: Patient non-compliant with using urinal. reinforced the patient to use urinal to collect urine. patient verbalized understanding.
--- NOTE | 2018-10-27 13:00 | NUR ---
NURSE NOTES: 24hour urine collection restarted at 1300. patient compliant with using urinal.
--- NOTE | 2018-10-27 13:04 | Diagnostic Imaging Report ---
Indication: Shortness of breath Technique: One view of the chest Comparison: 10/26/2018 Findings: Better inspiration currently. There is some pleural fluid at the right lung base. Before meals opacity the right lung base likely reflects pleural fluid but infiltrate also possible. More focal rounded opacity previously demonstrated is no longer evident. The heart is enlarged. The left lung and pleural space are grossly clear. Impression: Improved aeration on prior exam Persistent right-sided pleural effusion and possible right basilar infiltrate
--- NOTE | 2018-10-27 13:25 | NUR ---
NURSE NOTES: Patient off the unit for ABD US and Thoracentesis. consent for thoracentesis signed by the patient. Addendum: 10/27/18 at 1428 by SHANE CRUZ RN patient on portable youth nutritional monitor, accompanied by CINTHYA.
--- NOTE | 2018-10-27 14:00 | NUR ---
NURSE NOTES: 850ml take out from right side thoracentesis. sent for labs.
--- NOTE | 2018-10-27 14:27 | Pre-Procedure Note/Attestation ---
Pre-Procedure Note/Attestation Complete Prior to Procedure Planned Procedure: right Procedure Narrative: thoracentesis Indications for Procedure Pre-Operative Diagnosis: pleural effusion Attestation I attest that I discussed the nature of the procedure; its benefits; risks and complications; and alternatives (and the risks and benefits of such alternatives ), prior to the procedure, with the patient (or the patient's legal installation service representative). I attest that, if there was a reasonable possibility of needing a blood transfusion, the patient (or the patient's legal installation service representative) was given the [facility] standardized written summary, pursuant to the [facility] Blood Safety Act ([place] Health and Safety Code # 1645, as amended). I attest that I re-evaluated the patient just prior to the surgery and that there has been no change in the patient's H&P, except as documented below: Miguel Whalen MD Oct 27, 2018 14:27
--- NOTE | 2018-10-27 14:28 | Brief Operative Note ---
Immediate Post Operative Note Operative Note Pre-op Diagnosis: pleural effusion Procedure: thoracentesis Post-op Diagnosis: same as pre-op Surgeon: Luke Ugalde Anesthesia: local Specimen: yes - dark yellow fluid 50 ml sent to lab Complications: none Fluids: none Implant(s) used?: No Miguel Ugalde MD Oct 27, 2018 14:28
--- NOTE | 2018-10-27 14:48 | Diagnostic Imaging Report ---
Indications: Pleural effusion Technique: Ultrasound used to localize optimal puncture site. Sterile prepping and draping right chest. Local anesthesia with 1% lidocaine. Under real-time ultrasound guidance, puncture pleural space using thoracentesis needle. Stylet removed. Catheter placed to vacuum bottle suction. Total 850 milliliters of darker clear yellow fluid aspirated. Patient tolerated procedure well, without immediate complication. Findings: Followup sonography demonstrates resolution of most of the pleural fluid Impression: Successful ultrasound-guided thoracentesis, yielding 850 milliliters of fluid
--- NOTE | 2018-10-27 15:05 | Diagnostic Imaging Report ---
Indication: Postthoracentesis Technique: One view of the chest Comparison: 10/27/2018 Findings: The heart is enlarged. There is a marked improvement in previously demonstrated right pleural effusion. There is some residual hazy opacity at the right lung base. This may represent parenchymal consolidation versus residual fluid. The left lung and pleural space remain clear. No pneumothorax The trachea is markedly deviated to the left. Impression: Improved right pleural effusion, status post thoracentesis. No radiographically evident complication Leftward tracheal deviation, suggestive of a right paratracheal mass, probably a unilaterally enlarged thyroid. Consider thyroid sonography for further evaluation
--- NOTE | 2018-10-27 15:06 | Cardiology Report ---
APPROVED REPORT EXAM: Two-dimensional and M-mode echocardiogram with Doppler and color Doppler. INDICATION Congestive Heart Failure M-Mode DIMENSIONS IVSd1.1 (0.7-1.1cm)Left Atrium (MM)4.5 (1.6-4.0cm) LVDd6.0 (3.5-5.6cm)Aortic Root3.4 (2.0-3.7cm) PWd1.4 (0.7-1.1cm)Aortic Cusp Exc.1.9 (1.5-2.0cm) IVSs1.3 cm LVDs5.5 (2.5-4.0cm) PWs1.7 cm Mild left ventricular enlargement . Global left ventricular hypokinesis with anteroseptal dyskinesis ,ischemic cardiomyopathy can not be excluded . Left ventricular ejection fraction estimated to be 20-25%. No evidence of left ventricular hypertrophy . Small circumferential pericardial effusion present . Pleural effusion present. Mild left atrial enlargement . Right cardiac chamber sizes are within normal limits. Focal aortic valve sclerosis with adequate cusp excursion. Thickened mitral valve leaflets with normal excursion. Mitral annulus and aortic root calcification. Normal pulmonic valve structure. Normal tricuspid valve structure. IVC at 1.8 cm without physiologic collapse suggestive of increased RA pressure. A color flow and spectral Doppler study was performed and revealed: No aortic regurgitation. Moderate mitral regurgitation. Mitral inflow velocities indicates possible pseudo normalization pattern implying moderately elevated left atrial pressure (Grade II ) Moderate tricuspid regurgitation. Tricuspid systolic velocities suggests peak right ventricular systolic pressure of 48 mmHg,consistent with moderate pulmonary HTN.
--- NOTE | 2018-10-27 15:40 | NUR ---
NURSE NOTES: Patient back in room, s/p right side thoracentesis, abd US. patient tolerated well.
[2018-10-27 16:00] VITALS: BP 128/92
--- NOTE | 2018-10-27 16:07 | NUR ---
HAND-OFF: Report given to CINTHYA Henry.
--- NOTE | 2018-10-27 16:08 | NUR ---
NURSE NOTES: Received report from CINTHYA Kat. Observed patient in bed, awake, verbally responsive, able to make needs known. On room air, no acute respiratory distress noted, saturation 98%. IV on left AC intact and patent. Anastacio pain/discomfort at this time. Safety precautions in place, bed locked, alarmed, and in lowest position, side rails up x3, and call light within reach. Instructed to call for assistance, verbalized understanding. Will continue to monitor.
--- NOTE | 2018-10-27 16:10 | NUR ---
NURSE NOTES: Patient accompanied for VQ scan with Andre from nuclear medicine. Portable quality assurance monitor body placed on patient. In stable condition. Will continue to monitor.
--- NOTE | 2018-10-27 16:12 | Diagnostic Imaging Report ---
Indication: Abdominal pain, distention, abnormal liver function tests, abnormal renal function tests Technique: Pacheco-scale and duplex images of the upper abdomen were obtained Comparison: none Findings: Gallbladder demonstrates gallstones. The gallbladder wall is thickened, measures 5 mm thick. Sonographic Wallace's sign is negative. Common bile duct measures 4 mm in diameter. No intrahepatic biliary ductal dilatation. The liver is enlarged. It demonstrates normal echogenicity. No focal abnormality. Doppler interrogation of the portal vein demonstrates to and fro flow within the main portal vein. There is a small amount of ascites Pancreas is unremarkable. Spleen is unremarkable. Left kidney measures 10.8 cm in length. Right kidney measures 10.5 cm length. Both kidneys demonstrate normal echogenicity. There is no hydronephrosis. No focal abnormality . Abdominal aorta is partially obscured by bowel gas, visualized portions are non-aneurysmal . There are bilateral pleural effusions Impression: To-and-fro flow within the main portal vein may indicate portal hypertension Hepatomegaly Ascites Cholelithiasis. Gallbladder wall thickening may be related to the hemodynamic changes causing the ascites, but the possibility of acute cholecystitis should also be considered. Consider hepatobiliary nuclear scan if there is high clinical suspicion Negative for dilated bile ducts Bilateral pleural effusions Note inability to visualize portions of the abdominal aorta
[2018-10-27] MEDS ORDERED: NS 275ml ONE (17:00)
[2018-10-27] MEDS ORDERED: Tubing IV Secondary IV ONE (17:00)
--- NOTE | 2018-10-27 17:00 | NUR ---
NURSE NOTES: Patient back from VQ scan, in stable condition.
--- NOTE | 2018-10-27 17:02 | NUR ---
NM Lung Perfusion scan complete. However, the patient attempted but was unable to tolerate the lung ventilation portion and subsequently refused to attempt to complete the lung ventilation portion. Only lung perfusion scan was completed.
[2018-10-27] MEDS ORDERED: Docusate 100mg cap ORAL SCH (18:00)
--- NOTE | 2018-10-27 18:15 | Consultation ---
DATE OF CONSULTATION: 10/27/2018 CARDIOLOGY CONSULTATION CONSULTING PHYSICIAN: Teofilo Rollins M.D. REASON FOR CONSULTATION: Newly diagnosed congestive heart failure. HISTORY OF PRESENT ILLNESS: The patient is a 63-year-old gentleman with history of schizophrenia, presented to the emergency room for scrotal edema and difficulty breathing. The patient says that he never had history of high blood pressure or congestive heart failure. 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 The patient noted to have swelling from his toes up to his scrotum. The patient's EKG showed sinus rhythm with complete left bundle-branch block and a Cardiology consultation was obtained for further evaluation. REVIEW OF SYSTEMS: Negative other than what was mentioned in the history of present illness. PAST MEDICAL HISTORY: As mentioned above. FAMILY HISTORY: Noncontributory. SOCIAL HISTORY: He quit smoking about a week ago. Denies drinking alcohol or using any drugs. PHYSICAL EXAMINATION: VITAL SIGNS: Show blood pressure of 108/75, pulse is 116, respirations 18, temperature is 98. HEAD AND NECK: Shows positive JVD. LUNGS: Decreased breath sounds. CARDIOVASCULAR: Regular S1 and S2 with no gallop. ABDOMEN: Soft. EXTREMITIES: 3+ pitting edema up to his thigh as well as scrotal edema. LABORATORY DATA: Labs show white count 6.6, hemoglobin of 15, hematocrit 47.3, and platelet count is 203. Sodium is 141, potassium 4.0, BUN of 23, creatinine 1.2, initial BUN was 31, creatinine 1.4, glucose is 113. His troponin is negative. His BNP is 18,000, came down to 12,000. ASSESSMENT AND PLAN: 1. Shortness of breath and severe lower extremity edema with elevated BNP of 18,000 due to congestive heart failure. Echocardiogram preliminary report showed ejection fraction of only 20 to 25% and moderate mitral regurgitation. Start the patient on high-dose Lasix as well as Coreg, lisinopril, Aldactone. The patient will likely need cardiac catheterization for further evaluation of his coronaries. 2. Complete left bundle-branch block. Watch the patient on telemetry. 3. History of pleural effusion. The patient likely would need thoracentesis. 4. Schizophrenia, on Zyprexa, currently stable. Thank you very much for allowing me to participate in the care of this patient. Please do not hesitate to contact me for any questions regarding my evaluation. Teofilo Rollins M.D. DR: MARCELINO JOB#: [id number] CC:
--- NOTE | 2018-10-27 18:28 | NUR ---
NURSE NOTES: Stacie Orozco, patient's friend at bedside, visiting. Patient agreed to release medical information to her, as per patient he does not have family members in the state. Attempted to call medical records to update information on face sheet, no answer. Stacie Orozco provided phone number .
--- NOTE | 2018-10-27 19:09 | NUR ---
HAND-OFF: Report given to CINTHYA Daniels. Patient in stable condition.
--- NOTE | 2018-10-27 19:16 | NUR ---
NURSE NOTES: Report received from CINTHYA Henry. Observed pt lying in the bed, awake, denies any pain at this time. 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 On 2L NC, with no SOB. No acute distress noted at this time. 24 urine collecting, started today 1300. IV on L AC 20G, SL. Bed in the lowest position. Side rails up x3. Will continue to monitor. Pt friend took his cloths home and updated. friend contact number updated in the chart.
[2018-10-27 20:00] VITALS: BP 125/81
[2018-10-27] MEDS ORDERED: Carvedilol 12.5mg tab ORAL SCH (21:00)
--- NOTE | 2018-10-27 22:30 | Consultation ---
DATE OF CONSULTATION: 10/27/2018 INFECTIOUS DISEASE CONSULTATION CONSULTING PHYSICIAN: Geoffrey Velasquez M.D. PRIMARY ATTENDING PHYSICIAN: Cate Gonzales M.D. REASON FOR CONSULTATION: Pneumonia. HISTORY OF PRESENT ILLNESS: This is a 63-year-old white male admitted yesterday from home, complaining of shortness of breath and scrotal swelling. Chest x-ray was abnormal and showed infiltrate, effusion in the right lower lung. The patient had no fever or leukocytosis. He is a poor historian. PAST MEDICAL HISTORY: Significant for nicotine dependence and schizophrenia. MEDICATIONS: Lisinopril, Aldactone, Protonix, carvedilol, Lasix, doxycycline, thiamine, olanzapine, ceftriaxone. SOCIAL HISTORY: Smoker, single. Denies alcohol, drug abuse. REVIEW OF SYSTEMS: Denies fever or chills. He has some coughing. Denies shortness of breath at the time of exam. No nausea. No vomiting. No diarrhea. No problem passing urine. PHYSICAL EXAMINATION: VITAL SIGNS: Temperature 97.6, pulse 93, blood pressure 109/77. GENERAL APPEARANCE: No acute distress. HEAD AND NECK: No oral lesion. He had poor dentition with many decayed teeth. HEART: Normal rate. LUNGS: Clear. ABDOMEN: Soft. EXTREMITIES: Edema of legs. There is some erythema to right leg. GENITOURINARY: He has scrotal edema. NEUROLOGIC: He is awake, alert, responsive. LABORATORY AND DIAGNOSTIC DATA: Sodium 145, potassium 4, chloride 109, bicarbonate 28, BUN 26, creatinine 1.2. Creatinine at the time of admission was 1.4. [place] 1[place] [address]. UA showed 2+ proteinuria. Chest x-ray showed right-sided pleural effusion, right basilar mass in right opacity, likely infiltrate or interstitial fluid. IMPRESSION: 1. Community-acquired pneumonia. 2. He has CHF. 3. He has acute kidney failure. 4. He has a schizophrenia. 5. Proteinuria. 6. He is a smoker. RECOMMENDATION: Continue with ceftriaxone and doxycycline. Follow up the echocardiogram and follow up chest x-ray. We will follow up the cultures. At the end of my exam, I thank Dr. Gonzales, for involving me in the care of this patient. Geoffrey Velasquez M.D. DR: SUZANNE JOB#: [id number] CC:
[2018-10-28] VITALS: BP 106/76
--- NOTE | 2018-10-28 00:30 | NUR ---
NURSE NOTES: Observed pt sleeping in the bed. No acute distress noted at this time. ST w/ BBB on classroom monitor noted. On 2L NC with no sob, saturating at 97%. Will continue to monitor.
--- NOTE | 2018-10-28 03:15 | History and Physical Report ---
DATE OF ADMISSION: 10/26/2018 HISTORY OF PRESENT ILLNESS: The patient comes in and does intend to go to see a doctor coming in for anasarca, extremity edema, progressive shortness of breath, and was admitted for CHF diagnosis with respiratory insufficiency and worsening extremity edema. There is also trace pericardial effusion that does not appear to be hemodynamically significant. He was also admitted for diuresis. He is noted to be tachycardic. The x-ray also shows cardiomegaly with bilateral congestion, possible right lower lobe consolidation, right-sided effusion consult. The patient was also admitted for elevated bilirubin. The patient also has orthopnea, shortness of breath, and wheezing and dry cough for one week, it is getting worse in 1 week. The patient has history of smoking. Denies nausea, vomiting, or diarrhea. Denies fever or chills. Denies history of asthma. PAST MEDICAL HISTORY: Psychosis and new onset CHF. PAST SURGICAL HISTORY: None. MEDICATIONS: Denied taking any medications. Does not see a doctor. ALLERGIES: No known allergies. SOCIAL HISTORY: History of smoking. Denies history of alcohol or illicit drugs. REVIEW OF SYSTEMS: HEENT: Denies headaches. RESPIRATORY: Reports shortness of breath, nonproductive cough, and wheezing for one week. CARDIOVASCULAR: Reports orthopnea. Denies chest pain. GASTROINTESTINAL: Denies nausea, vomiting, or diarrhea. EXTREMITY: Denies pain. CENTRAL NERVOUS SYSTEM: Denies change in vision or speech pattern. PHYSICAL EXAMINATION: VITAL SIGNS: Temperature is 98, pulse is 118, and blood pressure is 144/88. HEENT: PERRLA. NECK: Supple. CHEST: Bibasilar rales. CARDIOVASCULAR: Regular rate and also tachycardic. There is no murmurs. GASTROINTESTINAL: Soft. Positive bowel sounds. No organomegaly. EXTREMITIES: A 1+ pitting edema on both sides. The patient has edema throughout the body. Reflexes in both sides. LABORATORY DATA: Laboratory davey WBC of 7.7, hemoglobin 16.4, and platelets of 205,000. Sodium 145, potassium 4.2, BUN of 30 with creatinine 1.4, and glucose is 79. Total bilirubin of 1.8. The x-ray shows pleural effusion, cardiomegaly, bilateral congestion, and signs of cephalization. ASSESSMENT AND PLAN: New onset CHF, respiratory insufficiency, pleural effusion, electrolyte imbalance, edema, elevated LFTs, and shortness of breath. I have asked Dr. El, Dr. Corbin, Dr. Rollins, and Dr. Hernandez to see the patient for the above-mentioned diagnoses as well as for the treatment. We will get back to Dr. Geoffrey Velasquez for possible as well. Cate Gonzales M.D. DR: JONES JOB#: [id number] CC:
[2018-10-28 04:00] VITALS: BP 110/81
[2018-10-28 05:14] LABS: BASOPHILS % (AUTO) 1.3 % (0.0-2.0); EOSINOPHILS % (AUTO) 4.2 % (0.0-3.0); HEMATOCRIT 44.8 % (42.0-52.0); HEMOGLOBIN 14.4 G/DL (14.2-18.0); LYMPHOCYTES % (AUTO) 22.8 % (20.0-45.0); MEAN CORPUSCULAR VOLUME 95 FL (80-99); MONOCYTES % (AUTO) 9.9 % (1.0-10.0); NEUTROPHILS % (AUTO) 61.8 % (45.0-75.0); PLATELET COUNT 178 K/UL (150-450); RED CELL DISTRIBUTION WIDTH 14.3 % (11.6-14.8); WHITE BLOOD COUNT 5.2 K/UL (4.8-10.8)
[2018-10-28 05:47] LABS: ALANINE AMINOTRANSFERASE 35 U/L (12-78); ALBUMIN 2.6 G/DL (3.4-5.0); ALKALINE PHOSPHATASE 84 U/L (46-116); ANION GAP 5 mmol/L (5-15); ASPARTATE AMINO TRANSFERASE 27 U/L (15-37); BILIRUBIN,TOTAL 1.8 MG/DL (0.2-1.0); BLOOD UREA NITROGEN 25 mg/dL (7-18); CALCIUM 8.8 MG/DL (8.5-10.1); CARBON DIOXIDE 31 MMOL/L (21-32); CHLORIDE 110 MMOL/L (98-107); CREATININE 1.1 MG/DL (0.55-1.30); POTASSIUM 4.2 MMOL/L (3.5-5.1); SODIUM 146 MMOL/L (136-145)
[2018-10-28 05:51] LABS: PHOSPHORUS 4.1 MG/DL (2.5-4.9)
[2018-10-28 06:08] LABS: BILIRUBIN,DIRECT 0.6 MG/DL (0.0-0.3)
--- NOTE | 2018-10-28 06:35 | NUR ---
HAND-OFF: Report given to CINTHYA Patiño. Pt sleeping in the bed. No acute distress noted at this time.
--- NOTE | 2018-10-28 06:45 | NUR ---
NURSE NOTES: Received pt from SDU via hospital bed. Pt is asleep in bed, easily arousable. In no acute distress. IV line intact and patent. Bed in lowest position, call light within reach. Will continue plan of care.
--- NOTE | 2018-10-28 07:34 | NUR ---
HAND-OFF: Report given to CINTHYA Nathan.
--- NOTE | 2018-10-28 07:34 | NUR ---
NURSE NOTES: report received from Haroon MENDES. Pt AOX4 and able to male needs known. Pt sitting in bed and awake. No c/o pain. IV site in LAC 20G SL patent and asymptomatic. Noted BLE/BUE pitting edema. On room air. No acute distress noted. Patient's bed in it's lowest position and locked. Call light within easy reach. Will continue to plan of care. NURSE NOTES:
[2018-10-28 08:00] VITALS: BP 116/84
[2018-10-28] MEDS: Lisinopril 10mg tab ORAL SCH (09:00)
[2018-10-28] MEDS: Thiamine 100mg tab ORAL SCH (09:00)
[2018-10-28] MEDS: Doxycycline Hyclate 100 MG in D5W 110 ML IV SCH ×2 (09:00→20:58)
[2018-10-28] MEDS ORDERED: Lisinopril 10mg tab ORAL SCH (09:00)
[2018-10-28] MEDS: Spironolactone 25mg tab ORAL SCH (09:00)
[2018-10-28] MEDS: Heparin 5000 units/ml inj SUBQ SCH ×2 (09:00→21:00)
[2018-10-28] MEDS ORDERED: Spironolactone 25mg tab ORAL SCH (09:00)
[2018-10-28] MEDS: ZyPREXA Zydis 10mg tab ORAL SCH (09:00)
[2018-10-28] MEDS: Docusate 100mg cap ORAL SCH ×2 (09:00→17:27)
--- NOTE | 2018-10-28 09:39 | Cardiac Electrophysiology PN ---
Assessment/Plan Assessment/Plan 1. Shortness of breath and severe lower extremity edema with elevated BNP of 18,000 due to congestive heart failure. Echocardiogram showed ejection fraction of only 20 Continue iv Lasix, Coreg, lisinopril, Aldactone. But has been very noncompliant and refusing all meds. The patient will likely need cardiac catheterization for further evaluation of his coronaries. 2. Complete left bundle-branch block. Watch the patient on telemetry. 3. History of pleural effusion. The patient likely would need thoracentesis. 4. Schizophrenia, on Zyprexa DW RN Subjective Subjective Refusing all meds IV and PO. Objective Last 24 Hour Vital Signs Date Time Temp Pulse Resp B/P (MAP) Pulse Ox O2 Delivery O2 Flow Rate FiO2 10/28/18 08:00 97.3 116 22 116/84 (95) 98 10/28/18 08:00 2.0 10/28/18 04:00 Nasal Cannula 2.0 10/28/18 04:00 97.3 105 20 110/81 (91) 97 10/28/18 04:00 2.0 10/28/18 03:24 104 10/28/18 00:00 105 10/28/18 00:00 Nasal Cannula 2.0 10/28/18 00:00 97.5 103 20 106/76 (86) 97 10/27/18 21:15 118 125/81 10/27/18 20:00 97.7 118 20 125/81 (96) 97 10/27/18 20:00 128 10/27/18 20:00 Nasal Cannula 2.0 10/27/18 20:00 2.0 10/27/18 16:00 2.0 10/27/18 16:00 Nasal Cannula 2.0 10/27/18 16:00 97.5 100 18 128/92 (104) 99 10/27/18 15:32 107 10/27/18 12:00 Nasal Cannula 2.0 10/27/18 12:00 97.6 93 18 109/77 (88) 94 10/27/18 12:00 2.0 10/27/18 12:00 111 Intake and Output 10/27/18 10/28/18 18:59 06:59 Intake Total 560 ml 165 ml Output Total 1880 ml 1800 ml Balance -1320 ml -1635 ml Intake Oral 450 ml IV Total 110 ml 165 ml Output Urine Total 1030 ml 1800 ml Other 850 ml # Voids 8 9 Laboratory Tests Test 10/27/18 10:15 10/27/18 13:10 10/27/18 14:00 10/28/18 03:50 White Blood Count 6.6 K/UL (4.8-10.8) 5.2 K/UL (4.8-10.8) Red Blood Count 4.96 M/UL (4.70-6.10) 4.70 M/UL (4.70-6.10) Hemoglobin 15.0 G/DL (14.2-18.0) 14.4 G/DL (14.2-18.0) Hematocrit 47.3 % (42.0-52.0) 44.8 % (42.0-52.0) Mean Corpuscular Volume 95 FL (80-99) 95 FL (80-99) Mean Corpuscular Hemoglobin 30.2 PG (27.0-31.0) 30.7 PG (27.0-31.0) Mean Corpuscular Hemoglobin Concent 31.7 G/DL (32.0-36.0) L 32.2 G/DL (32.0-36.0) Red Cell Distribution Width 14.3 % (11.6-14.8) 14.3 % (11.6-14.8) Platelet Count 203 K/UL (150-450) 178 K/UL (150-450) Mean Platelet Volume 9.2 FL (6.5-10.1) 9.1 FL (6.5-10.1) Neutrophils (%) (Auto) 71.0 % (45.0-75.0) 61.8 % (45.0-75.0) Lymphocytes (%) (Auto) 15.6 % (20.0-45.0) L 22.8 % (20.0-45.0) Monocytes (%) (Auto) 10.6 % (1.0-10.0) H 9.9 % (1.0-10.0) Eosinophils (%) (Auto) 1.5 % (0.0-3.0) 4.2 % (0.0-3.0) H Basophils (%) (Auto) 1.2 % (0.0-2.0) 1.3 % (0.0-2.0) Sodium Level 145 MMOL/L (136-145) 146 MMOL/L (136-145) H Potassium Level 4.0 MMOL/L (3.5-5.1) 4.2 MMOL/L (3.5-5.1) Chloride Level 109 MMOL/L (98-107) H 110 MMOL/L (98-107) H Carbon Dioxide Level 28 MMOL/L (21-32) 31 MMOL/L (21-32) Anion Gap 8 mmol/L (5-15) 5 mmol/L (5-15) Blood Urea Nitrogen 26 mg/dL (7-18) H 25 mg/dL (7-18) H Creatinine 1.2 MG/DL (0.55-1.30) 1.1 MG/DL (0.55-1.30) Estimat Glomerular Filtration Rate > 60 mL/min (>60) > 60 mL/min (>60) Glucose Level 113 MG/DL (74-106) H 86 MG/DL (74-106) Hemoglobin A1c 6.0 % (4.3-6.0) Uric Acid 8.6 MG/DL (2.6-7.2) H 9.0 MG/DL (2.6-7.2) H Calcium Level 8.6 MG/DL (8.5-10.1) 8.8 MG/DL (8.5-10.1) Phosphorus Level 3.8 MG/DL (2.5-4.9) 4.1 MG/DL (2.5-4.9) Magnesium Level 2.1 MG/DL (1.8-2.4) 2.0 MG/DL (1.8-2.4) Total Bilirubin 1.5 MG/DL (0.2-1.0) H 1.8 MG/DL (0.2-1.0) H Direct Bilirubin 0.6 MG/DL (0.0-0.3) H 0.6 MG/DL (0.0-0.3) H Gamma Glutamyl Transpeptidase 116 U/L (5-85) H Aspartate Amino Transf (AST/SGOT) 30 U/L (15-37) 27 U/L (15-37) Alanine Aminotransferase (ALT/SGPT) 39 U/L (12-78) 35 U/L (12-78) Alkaline Phosphatase 88 U/L (46-116) 84 U/L (46-116) Ammonia 54 umol/L (11-32) H Total Creatine Kinase 77 U/L (26-308) C-Reactive Protein, Quantitative 1.5 mg/dL (0.00-0.90) H 1.7 mg/dL (0.00-0.90) H Pro-B-Type Natriuretic Peptide 99234 pg/mL (0-125) H 07416 pg/mL (0-125) H Total Protein 5.8 G/DL (6.4-8.2) L 5.1 G/DL (6.4-8.2) L Albumin 2.8 G/DL (3.4-5.0) L 2.6 G/DL (3.4-5.0) L Globulin 3.0 g/dL 2.5 g/dL Albumin/Globulin Ratio 0.9 (1.0-2.7) L 1.0 (1.0-2.7) Triglycerides Level 63 MG/DL (30-150) Cholesterol Level 104 MG/DL (< 200) LDL Cholesterol 57 mg/dL (<100) HDL Cholesterol 34 MG/DL (40-60) L Cholesterol/HDL Ratio 3.1 (3.3-4.4) L Vitamin B12 Level 1728 PG/ML (193-986) H Folate 17.5 NG/ML (8.6-58.9) Thyroid Stimulating Hormone (TSH) 1.976 uiU/mL (0.358-3.740) 3.038 uiU/mL (0.358-3.740) D-Dimer 2.77 mg/L FEU (0.00-0.49) H Body Fluid Source R thoracentesis Body Fluid Volume 24 mL Body Fluid Appearance Hazy (Clear) Body Fluid RBC 1344 /CUMM Body Fluid Total Nucleated Cells 104 /CUMM Body Fluid Polynuclear WBCs (%) 23 % Body Fluid Mononuclear WBCs (%) 65 % Body Fluid Mesothelial Cells (%) 12 % Body Fluid Total Protein Pending Body Fluid Lactate Dehydrogenase Pending Urine Opiates Screen Negative (NEGATIVE) Urine Barbiturates Screen Negative (NEGATIVE) Phencyclidine (PCP) Screen Negative (NEGATIVE) Urine Amphetamines Screen Negative (NEGATIVE) Urine Benzodiazepines Screen Negative (NEGATIVE) Urine Cocaine Screen Negative (NEGATIVE) Urine Marijuana (THC) Screen Negative (NEGATIVE) Lactate Dehydrogenase 209 U/L (81-234) Troponin I 0.037 ng/mL (0.000-0.056) Carcinoembryonic Antigen Pending Free Thyroxine 1.06 NG/DL (0.76-1.46) Hepatitis A IgM Antibody Pending Hepatitis B Surface Antigen Pending Hepatitis B Core IgM Antibody Pending Hepatitis C Antibody Pending Objective HEAD AND NECK: Shows positive JVD. LUNGS: Decreased breath sounds. CARDIOVASCULAR: Regular S1 and S2 with no gallop. ABDOMEN: Soft. EXTREMITIES: 3+ pitting edema up to his thigh as well as scrotal edema. Teofilo Rollins MD Oct 28, 2018 09:38
--- NOTE | 2018-10-28 09:40 | NUR ---
NURSE NOTES: report received from Haroon MENDES. Pt AOX4 and able to male needs known. Pt sitting in bed and awake. No c/o pain. IV site in LAC 20G SL patent and asymptomatic. Noted BLE/BUE pitting edema. On room air. No acute distress noted. Patient's bed in it's lowest position and locked. Call light within easy reach. Will continue to plan of care. Addendum: 10/28/18 at 0946 by Edin Dawson RN NURSE NOTES: Dr. Rollins notified regarding patient's refusal of all his AM meds. Dr. Rollins and RN tried to convince him but he refused. Dr. Gonzales notified and psychology consult ordered for behavior.
--- NOTE | 2018-10-28 10:08 | Diagnostic Imaging Report ---
Indications: Shortness of breath Technique: IV administration mCi 99m technetium macroaggregated albumin. Images obtained over the lungs in multiple projections. Patient unable to tolerate inhalation of aerosol Comparison: Reference made to chest radiograph of earlier the same day Findings: There is slightly heterogeneous perfusion throughout the right lung. Decreased perfusion posteriorly/inferiorly likely reflects pleural fluid and consolidation demonstrated on chest radiograph. There is a larger area of decreased perfusion at the left lung base. This may reflect the cardiomegaly demonstrated on chest radiography. Perfusion the remainder of the left lung is heterogeneous Impression: Perfusion defects, as described, likely explainable by abnormalities demonstrated on chest radiograph. However, in the absence of correlative inhaled aerosol images findings must be deemed intermediate probability for pulmonary embolus
--- NOTE | 2018-10-28 10:10 | Nephrology Progress Note ---
Assessment/Plan Assessment Anasarca: likely cardiac and cardiomyopathy Has proteinuria Cr mildly elevated on admission now wnl h/o Schizophrenia Plan 2D Echo noted Abd KEIRA noted 24 H urine CrCl and Total Protein pending Monitor renal parameters TFT HgbA1c noted per current management optimize cardiac status Psych consult per PMD ( schizophrenia history- uncoaporative) echo: Mild left ventricular enlargement . Global left ventricular hypokinesis with anteroseptal dyskinesis ,ischemic cardiomyopathy can not be excluded . Left ventricular ejection fraction estimated to be 20-25%. KEIRA: To-and-fro flow within the main portal vein may indicate portal hypertension Hepatomegaly Ascites Cholelithiasis. Gallbladder wall thickening may be related to the hemodynamic changes causing the ascites, but the possibility of acute cholecystitis should also be considered. Consider hepatobiliary nuclear scan if there is high clinical suspicion Negative for dilated bile ducts Bilateral pleural effusions Subjective ROS Limited/Unobtainable: No Constitutional: Reports: malaise, weakness, other - uncoaporative Objective Objective Last 24 Hour Vital Signs Date Time Temp Pulse Resp B/P (MAP) Pulse Ox O2 Delivery O2 Flow Rate FiO2 10/28/18 09:00 116/84 10/28/18 09:00 116 116/84 10/28/18 08:00 97.3 116 22 116/84 (95) 98 10/28/18 08:00 Nasal Cannula 2.0 10/28/18 08:00 2.0 10/28/18 04:00 Nasal Cannula 2.0 10/28/18 04:00 97.3 105 20 110/81 (91) 97 10/28/18 04:00 2.0 10/28/18 03:24 104 10/28/18 00:00 105 10/28/18 00:00 Nasal Cannula 2.0 10/28/18 00:00 97.5 103 20 106/76 (86) 97 10/27/18 21:15 118 125/81 10/27/18 20:00 97.7 118 20 125/81 (96) 97 10/27/18 20:00 128 10/27/18 20:00 Nasal Cannula 2.0 10/27/18 20:00 2.0 10/27/18 16:00 2.0 10/27/18 16:00 Nasal Cannula 2.0 10/27/18 16:00 97.5 100 18 128/92 (104) 99 10/27/18 15:32 107 10/27/18 12:00 Nasal Cannula 2.0 10/27/18 12:00 97.6 93 18 109/77 (88) 94 10/27/18 12:00 2.0 10/27/18 12:00 111 Intake and Output 10/27/18 10/28/18 18:59 06:59 Intake Total 560 ml 165 ml Output Total 1880 ml 1800 ml Balance -1320 ml -1635 ml Intake Oral 450 ml IV Total 110 ml 165 ml Output Urine Total 1030 ml 1800 ml Other 850 ml # Voids 8 9 Laboratory Tests 10/27/18 10:15: White Blood Count 6.6, Red Blood Count 4.96, Hemoglobin 15.0, Hematocrit 47.3, Mean Corpuscular Volume 95, Mean Corpuscular Hemoglobin 30.2, Mean Corpuscular Hemoglobin Concent 31.7L, Red Cell Distribution Width 14.3, Platelet Count 203, Mean Platelet Volume 9.2, Neutrophils (%) (Auto) 71.0, Lymphocytes (%) (Auto) 15.6L, Monocytes (%) (Auto) 10.6H, Eosinophils (%) (Auto) 1.5, Basophils (%) ( Auto) 1.2, Sodium Level 145, Potassium Level 4.0, Chloride Level 109H, Carbon Dioxide Level 28, Anion Gap 8, Blood Urea Nitrogen 26H, Creatinine 1.2, Estimat Glomerular Filtration Rate > 60, Glucose Level 113H, Hemoglobin A1c 6.0, Uric Acid 8.6H, Calcium Level 8.6, Phosphorus Level 3.8, Magnesium Level 2.1, Total Bilirubin 1.5H, Direct Bilirubin 0.6H, Gamma Glutamyl Transpeptidase 116H, Aspartate Amino Transf (AST/SGOT) 30, Alanine Aminotransferase (ALT/SGPT) 39, Alkaline Phosphatase 88, Ammonia 54H, Total Creatine Kinase 77, C-Reactive Protein, Quantitative 1.5H, Pro-B-Type Natriuretic Peptide 20164Z, Total Protein 5.8L, Albumin 2.8L, Globulin 3.0, Albumin/Globulin Ratio 0.9L, Triglycerides Level 63, Cholesterol Level 104, LDL Cholesterol 57, HDL Cholesterol 34L, Cholesterol/HDL Ratio 3.1L, Vitamin B12 Level 1728H, Folate 17.5, Thyroid Stimulating Hormone (TSH) 1.976 10/27/18 13:10: D-Dimer 2.77H 10/27/18 14:00: Body Fluid Source R thoracentesis, Body Fluid Volume 24, Body Fluid Appearance Hazy, Body Fluid RBC 1344, Body Fluid Total Nucleated Cells 104, Body Fluid Polynuclear WBCs (%) 23, Body Fluid Mononuclear WBCs (%) 65, Body Fluid Mesothelial Cells (%) 12, Body Fluid Total Protein [Pending], Body Fluid Lactate Dehydrogenase [Pending], Urine Opiates Screen Negative, Urine Barbiturates Screen Negative, Phencyclidine (PCP) Screen Negative, Urine Amphetamines Screen Negative, Urine Benzodiazepines Screen Negative, Urine Cocaine Screen Negative, Urine Marijuana (THC) Screen Negative 10/28/18 03:50: White Blood Count 5.2, Red Blood Count 4.70, Hemoglobin 14.4, Hematocrit 44.8, Mean Corpuscular Volume 95, Mean Corpuscular Hemoglobin 30.7, Mean Corpuscular Hemoglobin Concent 32.2, Red Cell Distribution Width 14.3, Platelet Count 178, Mean Platelet Volume 9.1, Neutrophils (%) (Auto) 61.8, Lymphocytes (%) (Auto) 22.8, Monocytes (%) (Auto) 9.9, Eosinophils (%) (Auto) 4.2H, Basophils (%) (Auto ) 1.3, Sodium Level 146H, Potassium Level 4.2, Chloride Level 110H, Carbon Dioxide Level 31, Anion Gap 5, Blood Urea Nitrogen 25H, Creatinine 1.1, Estimat Glomerular Filtration Rate > 60, Glucose Level 86, Uric Acid 9.0H, Calcium Level 8.8, Phosphorus Level 4.1, Magnesium Level 2.0, Total Bilirubin 1.8H, Direct Bilirubin 0.6H, Aspartate Amino Transf (AST/SGOT) 27, Alanine Aminotransferase (ALT/SGPT) 35, Alkaline Phosphatase 84, C-Reactive Protein, Quantitative 1.7H, Pro-B-Type Natriuretic Peptide 18710T, Total Protein 5.1L, Albumin 2.6L, Globulin 2.5, Albumin/Globulin Ratio 1.0, Thyroid Stimulating Hormone (TSH) 3.038, Lactate Dehydrogenase 209, Troponin I 0.037, Carcinoembryonic Antigen [Pending], Free Thyroxine 1.06, Hepatitis A IgM Antibody [Pending], Hepatitis B Surface Antigen [Pending], Hepatitis B Core IgM Antibody [Pending], Hepatitis C Antibody [Pending] Height (Feet): 5 Height (Inches): 11.00 Weight (Pounds): 191 General Appearance: no apparent distress Cardiovascular: tachycardia Respiratory/Chest: decreased breath sounds Abdomen: distended Extremities: other - edematous Jasbir Corbin MD Oct 28, 2018 10:10
--- NOTE | 2018-10-28 11:33 | NUR ---
*-* INSURANCE *-* ALL CLINICALS HAVE BEEN FAXED TO: [facility]: REN[place]ENT# [id number] P: [phone] F: [phone] DISCHARGING NEEDS PLS CALL P: [phone]
--- NOTE | 2018-10-28 11:34 | NUR ---
CASE MANAGEMENT: INITIAL REVIEW 63 YO M CHAYO FROM HOME CC: TESTICULAR PAIN X1 WEEK PMHx: CHF. COPD. SI:PNA. AMRIT. HYPERKALEMIA. CHF. T 97.7 HR 114 RR 18 B/P 115/82 SATS 98% ON RA NA 145 K 5.2 CL 109 BUN 31 CR 1.4 TBILI 1.8 DBILI 0.8 BNP 97191 ABGs PCO2 34.3 PO2 174.9 IS: DUONEB HHN X1 LASIX X1 PATIENT ADMITTED TO TELE 10/26/2018 @ 4769 DCP: PATIENT TO BE DISCHARGED TO HOME ONCE MEDICALLY CLEARED. PLAN OF CARE: THORACENTESIS Addendum: 10/28/18 at 1142 by Shannon Anna CM INTERQUAL MET
--- NOTE | 2018-10-28 11:41 | NUR ---
*-* INSURANCE *-* ALL CLINICALS AND REVIEW HAVE BEEN FAXED TO: [facility]: RENÉ PREMAPancho# [id number] P: [phone] F: [phone] DISCHARGING NEEDS PLS CALL P: [phone] Addendum: 10/29/18 at 1041 by GASTON HAYNES CM F# [phone] P: [phone]
[2018-10-28 12:00] VITALS: BP 113/79
--- NOTE | 2018-10-28 12:43 | GI Progress Note ---
Assessment/Plan Problems: (1) Abnormal LFTs ICD Codes: R94.5 - Abnormal results of liver function studies SNOMED: 127793609 (2) Pleural effusion ICD Codes: J90 - Pleural effusion, not elsewhere classified SNOMED: 10569347 Status: stable Status Narrative Discussed with Dr. Natarajan. Assessment/Plan symptomatic treatment drug screen negative hepatitis panel fu pulm and cardiology recs bowel regime zofran prn The patient was seen and examined at bedside and all new and available data was reviewed in the patients chart. I agree with the above findings, impression and plan. (Patient seen earlier today. Signature stamp does not reflect patient encounter time.). - Danny Natarajan MD Subjective Subjective refusing care Objective Last 24 Hour Vital Signs Date Time Temp Pulse Resp B/P (MAP) Pulse Ox O2 Delivery O2 Flow Rate FiO2 10/28/18 12:00 Nasal Cannula 2.0 10/28/18 12:00 2.0 10/28/18 09:00 116/84 10/28/18 09:00 116 116/84 10/28/18 08:00 97.3 116 22 116/84 (95) 98 10/28/18 08:00 Nasal Cannula 2.0 10/28/18 08:00 124 10/28/18 08:00 2.0 10/28/18 04:00 Nasal Cannula 2.0 10/28/18 04:00 97.3 105 20 110/81 (91) 97 10/28/18 04:00 2.0 10/28/18 03:24 104 10/28/18 00:00 105 10/28/18 00:00 Nasal Cannula 2.0 10/28/18 00:00 97.5 103 20 106/76 (86) 97 10/27/18 21:15 118 125/81 10/27/18 20:00 97.7 118 20 125/81 (96) 97 10/27/18 20:00 128 10/27/18 20:00 Nasal Cannula 2.0 10/27/18 20:00 2.0 10/27/18 16:00 2.0 10/27/18 16:00 Nasal Cannula 2.0 10/27/18 16:00 97.5 100 18 128/92 (104) 99 10/27/18 15:32 107 Intake and Output 10/27/18 10/28/18 18:59 06:59 Intake Total 560 ml 165 ml Output Total 1880 ml 1800 ml Balance -1320 ml -1635 ml Intake Oral 450 ml IV Total 110 ml 165 ml Output Urine Total 1030 ml 1800 ml Other 850 ml # Voids 8 9 Laboratory Tests Test 10/27/18 13:10 10/27/18 14:00 10/28/18 03:50 D-Dimer 2.77 mg/L FEU (0.00-0.49) H Body Fluid Source R thoracentesis Body Fluid Volume 24 mL Body Fluid Appearance Hazy (Clear) Body Fluid RBC 1344 /CUMM Body Fluid Total Nucleated Cells 104 /CUMM Body Fluid Polynuclear WBCs (%) 23 % Body Fluid Mononuclear WBCs (%) 65 % Body Fluid Mesothelial Cells (%) 12 % Body Fluid Total Protein Pending Body Fluid Lactate Dehydrogenase Pending Urine Opiates Screen Negative (NEGATIVE) Urine Barbiturates Screen Negative (NEGATIVE) Phencyclidine (PCP) Screen Negative (NEGATIVE) Urine Amphetamines Screen Negative (NEGATIVE) Urine Benzodiazepines Screen Negative (NEGATIVE) Urine Cocaine Screen Negative (NEGATIVE) Urine Marijuana (THC) Screen Negative (NEGATIVE) White Blood Count 5.2 K/UL (4.8-10.8) Red Blood Count 4.70 M/UL (4.70-6.10) Hemoglobin 14.4 G/DL (14.2-18.0) Hematocrit 44.8 % (42.0-52.0) Mean Corpuscular Volume 95 FL (80-99) Mean Corpuscular Hemoglobin 30.7 PG (27.0-31.0) Mean Corpuscular Hemoglobin Concent 32.2 G/DL (32.0-36.0) Red Cell Distribution Width 14.3 % (11.6-14.8) Platelet Count 178 K/UL (150-450) Mean Platelet Volume 9.1 FL (6.5-10.1) Neutrophils (%) (Auto) 61.8 % (45.0-75.0) Lymphocytes (%) (Auto) 22.8 % (20.0-45.0) Monocytes (%) (Auto) 9.9 % (1.0-10.0) Eosinophils (%) (Auto) 4.2 % (0.0-3.0) H Basophils (%) (Auto) 1.3 % (0.0-2.0) Sodium Level 146 MMOL/L (136-145) H Potassium Level 4.2 MMOL/L (3.5-5.1) Chloride Level 110 MMOL/L (98-107) H Carbon Dioxide Level 31 MMOL/L (21-32) Anion Gap 5 mmol/L (5-15) Blood Urea Nitrogen 25 mg/dL (7-18) H Creatinine 1.1 MG/DL (0.55-1.30) Estimat Glomerular Filtration Rate > 60 mL/min (>60) Glucose Level 86 MG/DL (74-106) Uric Acid 9.0 MG/DL (2.6-7.2) H Calcium Level 8.8 MG/DL (8.5-10.1) Phosphorus Level 4.1 MG/DL (2.5-4.9) Magnesium Level 2.0 MG/DL (1.8-2.4) Total Bilirubin 1.8 MG/DL (0.2-1.0) H Direct Bilirubin 0.6 MG/DL (0.0-0.3) H Aspartate Amino Transf (AST/SGOT) 27 U/L (15-37) Alanine Aminotransferase (ALT/SGPT) 35 U/L (12-78) Alkaline Phosphatase 84 U/L (46-116) Lactate Dehydrogenase 209 U/L (81-234) Troponin I 0.037 ng/mL (0.000-0.056) C-Reactive Protein, Quantitative 1.7 mg/dL (0.00-0.90) H Pro-B-Type Natriuretic Peptide 04249 pg/mL (0-125) H Total Protein 5.1 G/DL (6.4-8.2) L Albumin 2.6 G/DL (3.4-5.0) L Globulin 2.5 g/dL Albumin/Globulin Ratio 1.0 (1.0-2.7) Carcinoembryonic Antigen Pending Thyroid Stimulating Hormone (TSH) 3.038 uiU/mL (0.358-3.740) Free Thyroxine 1.06 NG/DL (0.76-1.46) Hepatitis A IgM Antibody Pending Hepatitis B Surface Antigen Pending Hepatitis B Core IgM Antibody Pending Hepatitis C Antibody Pending Microbiology Date/Time Source Procedure Growth Status 10/27/18 14:00 Other Fluid Gram Stain Pending Resulted 10/27/18 14:00 Other Fluid Body Fluid Culture - Preliminary NO GROWTH Resulted Height (Feet): 5 Height (Inches): 11.00 Weight (Pounds): 191 General Appearance: WD/WN, no apparent distress, alert Cardiovascular: normal rate Respiratory/Chest: normal breath sounds, no respiratory distress Abdominal Exam: normal bowel sounds, non tender, soft Extremities: normal range of motion, non-tender Betty Lovell NP Oct 28, 2018 12:43
--- NOTE | 2018-10-28 12:44 | Diagnostic Imaging Report ---
APPROVED REPORT CPT Code: 72766 Present Symptoms Comments: Pain Edema BILATERAL: Imaging reveals a patent deep venous system bilaterally. There is no evidence of thrombus within the common femoral, superficial femoral, popliteal or tibial segments. The greater saphenous veins are within normal limits. Doppler indicates normal spontaneous flow within these segments.
--- NOTE | 2018-10-28 12:50 | CDS Physician Query ---
Clarification is required for compliance, coding accuracy, and to reflect severity of illness for this patient Dear Dr. Teofilo Guerrier Date: 10/28/2018 Manager Business/CDS Name: Daysi Medellin Clinical Documentation states: 63-year-old gentleman with history of schizophrenia, presented to the emergency room for scrotal edema and difficulty breathing...Shortness of breath and severe lower extremity edema with elevated BNP of 18,000 due to congestive heart failure. Echocardiogram preliminary report showed ejection fraction of only 20 to 25% and moderate mitral regurgitation. Start the patient on high-dose Lasix as well as Coreg, lisinopril, Aldactone. The patient will likely need cardiac catheterization for further evaluation of his coronaries. Please Clarify: Acuity [] Acute [] Chronic [] Acute on Chronic Type [] Systolic [] Diastolic [] Systolic & Diastolic (Combined) [] Other: Present on Admission: [] Yes [] No [] Clinically Undetermined Physician signature Date Please also document in your Progress Notes and/or Discharge Summary and indicate if the condition was present on admission. MTDD
--- NOTE | 2018-10-28 14:49 | Infectious Diseases Prog Note ---
Assessment/Plan Assessment/Plan MPRESSION: 1. Community-acquired pneumonia. 2. Systolic CHF, EF =20-25% 3. Acute kidney failure. 4. Schizophrenia. 5. Proteinuria. 6. Hepatomegaly 7. Portal hypertension 8. LBBB 9. Pleural effusion RECOMMENDATION: Continue with ceftriaxone and doxycycline. Subjective ROS Limited/Unobtainable: Yes Respiratory: Reports: no symptoms, other - had thoracentesis yesterday Gastrointestinal/Abdominal: Reports: no symptoms Genitourinary: Reports: other - scrotal swelling & pain Psychiatric: Reports: other - noncomplaint with medication Allergies: Coded Allergies: No Known Allergies (Unverified , 10/26/18) Objective Vital Signs Last 24 Hour Vital Signs Date Time Temp Pulse Resp B/P (MAP) Pulse Ox O2 Delivery O2 Flow Rate FiO2 10/28/18 12:00 97.9 116 22 113/79 (90) 94 10/28/18 12:00 Nasal Cannula 2.0 10/28/18 12:00 2.0 10/28/18 12:00 111 10/28/18 09:00 116/84 10/28/18 09:00 116 116/84 10/28/18 08:00 97.3 116 22 116/84 (95) 98 10/28/18 08:00 Nasal Cannula 2.0 10/28/18 08:00 124 10/28/18 08:00 2.0 10/28/18 04:00 Nasal Cannula 2.0 10/28/18 04:00 97.3 105 20 110/81 (91) 97 10/28/18 04:00 2.0 10/28/18 03:24 104 10/28/18 00:00 105 10/28/18 00:00 Nasal Cannula 2.0 10/28/18 00:00 97.5 103 20 106/76 (86) 97 10/27/18 21:15 118 125/81 10/27/18 20:00 97.7 118 20 125/81 (96) 97 10/27/18 20:00 128 10/27/18 20:00 Nasal Cannula 2.0 10/27/18 20:00 2.0 10/27/18 16:00 2.0 10/27/18 16:00 Nasal Cannula 2.0 10/27/18 16:00 97.5 100 18 128/92 (104) 99 10/27/18 15:32 107 Height (Feet): 5 Height (Inches): 11.00 Weight (Pounds): 191 General Appearance: no acute distress HEENT: mucous membranes moist Respiratory/Chest: lungs clear Cardiovascular: tachycardia Abdomen: distended Genitourinary: other - scrotal edema Extremities: other - edema of legs Neurologic/Psychiatric: alert, responsive Microbiology Date/Time Source Procedure Growth Status 10/27/18 14:00 Other Fluid Gram Stain Pending Resulted 10/27/18 14:00 Other Fluid Body Fluid Culture - Preliminary NO GROWTH Resulted Laboratory Tests Test 10/28/18 03:50 White Blood Count 5.2 K/UL (4.8-10.8) Red Blood Count 4.70 M/UL (4.70-6.10) Hemoglobin 14.4 G/DL (14.2-18.0) Hematocrit 44.8 % (42.0-52.0) Mean Corpuscular Volume 95 FL (80-99) Mean Corpuscular Hemoglobin 30.7 PG (27.0-31.0) Mean Corpuscular Hemoglobin Concent 32.2 G/DL (32.0-36.0) Red Cell Distribution Width 14.3 % (11.6-14.8) Platelet Count 178 K/UL (150-450) Mean Platelet Volume 9.1 FL (6.5-10.1) Neutrophils (%) (Auto) 61.8 % (45.0-75.0) Lymphocytes (%) (Auto) 22.8 % (20.0-45.0) Monocytes (%) (Auto) 9.9 % (1.0-10.0) Eosinophils (%) (Auto) 4.2 % (0.0-3.0) H Basophils (%) (Auto) 1.3 % (0.0-2.0) Sodium Level 146 MMOL/L (136-145) H Potassium Level 4.2 MMOL/L (3.5-5.1) Chloride Level 110 MMOL/L (98-107) H Carbon Dioxide Level 31 MMOL/L (21-32) Anion Gap 5 mmol/L (5-15) Blood Urea Nitrogen 25 mg/dL (7-18) H Creatinine 1.1 MG/DL (0.55-1.30) Estimat Glomerular Filtration Rate > 60 mL/min (>60) Glucose Level 86 MG/DL (74-106) Uric Acid 9.0 MG/DL (2.6-7.2) H Calcium Level 8.8 MG/DL (8.5-10.1) Phosphorus Level 4.1 MG/DL (2.5-4.9) Magnesium Level 2.0 MG/DL (1.8-2.4) Total Bilirubin 1.8 MG/DL (0.2-1.0) H Direct Bilirubin 0.6 MG/DL (0.0-0.3) H Aspartate Amino Transf (AST/SGOT) 27 U/L (15-37) Alanine Aminotransferase (ALT/SGPT) 35 U/L (12-78) Alkaline Phosphatase 84 U/L (46-116) Lactate Dehydrogenase 209 U/L (81-234) Troponin I 0.037 ng/mL (0.000-0.056) C-Reactive Protein, Quantitative 1.7 mg/dL (0.00-0.90) H Pro-B-Type Natriuretic Peptide 20394 pg/mL (0-125) H Total Protein 5.1 G/DL (6.4-8.2) L Albumin 2.6 G/DL (3.4-5.0) L Globulin 2.5 g/dL Albumin/Globulin Ratio 1.0 (1.0-2.7) Carcinoembryonic Antigen Pending Thyroid Stimulating Hormone (TSH) 3.038 uiU/mL (0.358-3.740) Free Thyroxine 1.06 NG/DL (0.76-1.46) Hepatitis A IgM Antibody Pending Hepatitis B Surface Antigen Pending Hepatitis B Core IgM Antibody Pending Hepatitis C Antibody Pending Current Medications Medications (Trade) Dose Ordered Sig/Judah Route PRN Reason Start Time Stop Time Status Last Admin Dose Admin Carvedilol (Coreg) 3.125 mg EVERY 12 HOURS ORAL 10/28/18 09:00 11/26/18 20:59 Ceftriaxone Sodium 1 gm/ Dextrose 55 ml @ 110 mls/hr Q24H IVPB 10/29/18 00:00 11/03/18 00:00 Docusate Sodium (Colace) 100 mg TWICE A DAY ORAL 10/28/18 09:00 11/26/18 17:59 Doxycycline Hyclate 100 mg/ Dextrose 110 ml @ 110 mls/hr Q12HR IV 10/28/18 09:00 11/03/18 08:59 Furosemide (Lasix) 40 mg BID IV 10/28/18 09:00 11/26/18 08:59 10/28/18 10:57 Heparin Sodium (Porcine) (Heparin 5000 units/ml) 5,000 units EVERY 12 HOURS SUBQ 10/28/18 09:00 11/26/18 08:59 Lisinopril (Zestril) 10 mg DAILY ORAL 10/28/18 09:00 11/27/18 08:59 Olanzapine (ZyPREXA Zydis) 20 mg DAILY ORAL 10/28/18 09:00 11/26/18 08:59 Pantoprazole (Protonix) 40 mg ACBREAKFAST ORAL 10/29/18 06:30 11/27/18 06:29 Spironolactone (Aldactone) 25 mg DAILY ORAL 10/28/18 09:00 11/27/18 08:59 Thiamine HCl (Vitamin B1) 100 mg DAILY ORAL 10/28/18 09:00 11/26/18 08:59 Geoffrey Velasquez MD Oct 28, 2018 14:49
--- NOTE | 2018-10-28 15:13 | Cardiology Report ---
APPROVED REPORT EKG Measurement Heart [id number] Sinus tachycardia Possible Left atrial enlargement Nonspecific intraventricular block Abnormal ECG
[2018-10-28 16:00] VITALS: BP 118/81
--- NOTE | 2018-10-28 18:01 | Pulmonology Progress Note ---
Assessment/Plan Assessment/Plan Pulmonary Progress Note HPI Patient is a 63-year old man with admitted with shortness of breath, lower extremity and scrotal edema/pain. Denies cough, no chest pain. Noted to have features of CHF right lower lobe infiltrate/effusion. Symptoms is been present for at least a week. He notes worsening exertional dyspnea, diffuse swelling, has some pain with urination. Denies any medical history including heart disease, CHF, COPD. He does smoke and states he quit 1 week ago. Denies alcohol use. Denies any recent fevers, chills, vomiting, diarrhea. No new complaints PMH: Schizophrenia Allergies: NKDA Social Hx: Uses tobacco. Denies drugs or alcohol All Other Systems: negative except mentioned in HPI Physical Exam Vital Signs Noted General: Awake and alert, note distressed on oxygen HEENT: NCAT. EOMI. Neck: Supple, No LN Chest Wall: No tenderness, no deformity Cardiovascular: Tachycardic. RRR. S1 and S2 normal. No murmur noted. Resp: Basal crackles bilaterally. No wheezing. Reduced right basal BS Abdomen: Abdomen is distended. Nontender to palpation. Diffuse anasarca Skin: Diffuse anasarca over the entire abdomen and over the lower extremities bilaterally. Testicular enlargement. MSK: Normal tone and bulk. Moving all extremities. No obvious deformity. Neuro: Awake and alert. No focal signs. Bedside Echo in ED: Findings include cardiomegaly, trace pericardial effusion without significant right ventricle or right atrial collapse. Left ventricle appears somewhat enlarged. Impression: Congestive Heart Failure Right sided Pulmonary Infiltrates s/o Pneumonia Right pleural effusion AMRIT (acute kidney injury) Small Pericardial effusion Plan: Diurese PRN Ceftraixone/Doxycycline Monitor labs PPX O2 PRN Thoracentesis ST evaluation R/O DVT Laboratory Tests Noted Test 10/26/18 19:30 10/26/18 19:59 10/26/18 21:40 White Blood Count 7.7 K/UL (4.8-10.8) Red Blood Count 5.33 M/UL (4.70-6.10) Hemoglobin 16.4 G/DL (14.2-18.0) Hematocrit 49.6 % (42.0-52.0) Mean Corpuscular Volume 93 FL (80-99) Mean Corpuscular Hemoglobin 30.8 PG (27.0-31.0) Mean Corpuscular Hemoglobin Concent 33.1 G/DL (32.0-36.0) Red Cell Distribution Width 13.8 % (11.6-14.8) Platelet Count 205 K/UL (150-450) Mean Platelet Volume 8.0 FL (6.5-10.1) Neutrophils (%) (Auto) 66.8 % (45.0-75.0) Lymphocytes (%) (Auto) 21.5 % (20.0-45.0) Monocytes (%) (Auto) 8.9 % (1.0-10.0) Eosinophils (%) (Auto) 1.4 % (0.0-3.0) Basophils (%) (Auto) 1.4 % (0.0-2.0) Prothrombin Time 12.8 SEC (9.30-11.50) H Prothrombin Time INR 1.2 (0.9-1.1) H PTT 27 SEC (23-33) Sodium Level 145 MMOL/L (136-145) Potassium Level 5.2 MMOL/L (3.5-5.1) H Chloride Level 109 MMOL/L (98-107) H Carbon Dioxide Level 28 MMOL/L (21-32) Anion Gap 8 mmol/L (5-15) Blood Urea Nitrogen 31 mg/dL (7-18) H Creatinine 1.4 MG/DL (0.55-1.30) H Estimate Glomerular Filtration Rate 51.4 mL/min (>60) Glucose Level 79 MG/DL (74-106) Calcium Level 9.4 MG/DL (8.5-10.1) Total Bilirubin 1.8 MG/DL (0.2-1.0) H Direct Bilirubin 0.8 MG/DL (0.0-0.3) H Aspartate Amino Transferase (AST) 33 U/L (15-37) Alanine Aminotransferase (ALT) 53 U/L (12-78) Alkaline Phosphatase 108 U/L (46-116) Total Creatine Kinase 100 U/L (26-308) Creatine Kinase MB 2.6 NG/ML (0.0-3.6) Creatine Kinase MB Relative Index 2.6 Troponin I 0.023 ng/mL (0.000-0.056) Pro-B-Type Natriuretic Peptide 05554 pg/mL (0-125) H Total Protein 6.5 G/DL (6.4-8.2) Albumin 3.3 G/DL (3.4-5.0) L Globulin 3.2 g/dL Albumin/Globulin Ratio 1.0 (1.0-2.7) Lipase 275 U/L (73-393) Arterial Blood pH 7.427 (7.350-7.450) Arterial Blood Partial Pressure CO2 34.3 mmHg (35.0-45.0) L Arterial Blood Partial Pressure O2 174.9 mmHg (75.0-100.0) H Arterial Blood HCO3 22.1 mmol/L (22.0-26.0) Arterial Blood Oxygen Saturation 99.0 % (95-100) Arterial Blood Base Excess -1.5 (-2-2) Alexi Test Positive Urine Color Yellow Urine Appearance Clear Urine pH 6 (4.5-8.0) Urine Specific [place] 1.015 (1.005-1.035) Urine Protein 2+ (NEGATIVE) H Urine Glucose (UA) Negative (NEGATIVE) Urine Ketones Negative (NEGATIVE) Urine Blood Negative (NEGATIVE) Urine Nitrite Negative (NEGATIVE) Urine Bilirubin Negative (NEGATIVE) Urine Urobilinogen 1 MG/DL (0.0-1.0) H Urine Leukocyte Esterase Negative (NEGATIVE) Urine RBC 0 /HPF (0 - 0) Urine WBC 0 /HPF (0 - 0) Urine Squamous Epithelial Cells None /LPF (NONE/OCC) Urine Amorphous Sediment Few /LPF (NONE) H Urine Bacteria Occasional /HPF (NONE) EKG: Rate: tachycardiac Rhythm: NSR, Sinus tachycardia rate 115 bpm, prolonged QTC at 522 ms, normal axis. Low voltage in the limb leads and left bundle branch block pattern in the precordial leads. Chest X-Ray: Cardiomegaly, bilateral congestion, RLL effusion, questionable infiltrate in the right lower lobe Subjective ROS Limited/Unobtainable: No Allergies: Coded Allergies: No Known Allergies (Unverified , 10/26/18) Objective Last 24 Hour Vital Signs Date Time Temp Pulse Resp B/P (MAP) Pulse Ox O2 Delivery O2 Flow Rate FiO2 10/28/18 16:00 Nasal Cannula 2.0 10/28/18 16:00 98.0 111 22 118/81 (93) 95 10/28/18 16:00 2.0 10/28/18 12:00 97.9 116 22 113/79 (90) 94 10/28/18 12:00 Nasal Cannula 2.0 10/28/18 12:00 2.0 10/28/18 12:00 111 10/28/18 09:00 116/84 10/28/18 09:00 116 116/84 10/28/18 08:00 97.3 116 22 116/84 (95) 98 10/28/18 08:00 Nasal Cannula 2.0 10/28/18 08:00 124 10/28/18 08:00 2.0 10/28/18 04:00 Nasal Cannula 2.0 10/28/18 04:00 97.3 105 20 110/81 (91) 97 10/28/18 04:00 2.0 10/28/18 03:24 104 10/28/18 00:00 105 10/28/18 00:00 Nasal Cannula 2.0 10/28/18 00:00 97.5 103 20 106/76 (86) 97 10/27/18 21:15 118 125/81 10/27/18 20:00 97.7 118 20 125/81 (96) 97 10/27/18 20:00 128 10/27/18 20:00 Nasal Cannula 2.0 10/27/18 20:00 2.0 Intake and Output 10/27/18 10/28/18 19:00 07:00 Intake Total 560 ml 165 ml Output Total 1880 ml 1800 ml Balance -1320 ml -1635 ml Intake Oral 450 ml IV Total 110 ml 165 ml Output Urine Total 1030 ml 1800 ml Other 850 ml # Voids 8 9 Microbiology Date/Time Source Procedure Growth Status 10/27/18 14:00 Other Fluid Gram Stain Pending Resulted 10/27/18 14:00 Other Fluid Body Fluid Culture - Preliminary NO GROWTH Resulted Laboratory Tests 10/28/18 03:50: White Blood Count 5.2, Red Blood Count 4.70, Hemoglobin 14.4, Hematocrit 44.8, Mean Corpuscular Volume 95, Mean Corpuscular Hemoglobin 30.7, Mean Corpuscular Hemoglobin Concent 32.2, Red Cell Distribution Width 14.3, Platelet Count 178, Mean Platelet Volume 9.1, Neutrophils (%) (Auto) 61.8, Lymphocytes (%) (Auto) 22.8, Monocytes (%) (Auto) 9.9, Eosinophils (%) (Auto) 4.2H, Basophils (%) (Auto ) 1.3, Sodium Level 146H, Potassium Level 4.2, Chloride Level 110H, Carbon Dioxide Level 31, Anion Gap 5, Blood Urea Nitrogen 25H, Creatinine 1.1, Estimat Glomerular Filtration Rate > 60, Glucose Level 86, Uric Acid 9.0H, Calcium Level 8.8, Phosphorus Level 4.1, Magnesium Level 2.0, Total Bilirubin 1.8H, Direct Bilirubin 0.6H, Aspartate Amino Transf (AST/SGOT) 27, Alanine Aminotransferase (ALT/SGPT) 35, Alkaline Phosphatase 84, Lactate Dehydrogenase 209, Troponin I 0.037, C-Reactive Protein, Quantitative 1.7H, Pro-B-Type Natriuretic Peptide 55373X, Total Protein 5.1L, Albumin 2.6L, Globulin 2.5, Albumin/Globulin Ratio 1.0, Carcinoembryonic Antigen [Pending], Thyroid Stimulating Hormone (TSH) 3.038, Free Thyroxine 1.06, Hepatitis A IgM Antibody [ Pending], Hepatitis B Surface Antigen [Pending], Hepatitis B Core IgM Antibody [ Pending], Hepatitis C Antibody [Pending] Current Medications Medications (Trade) Dose Ordered Sig/Judah Route PRN Reason Start Time Stop Time Status Last Admin Dose Admin Carvedilol (Coreg) 3.125 mg EVERY 12 HOURS ORAL 10/28/18 09:00 11/26/18 20:59 Ceftriaxone Sodium 1 gm/ Dextrose 55 ml @ 110 mls/hr Q24H IVPB 10/29/18 00:00 11/03/18 00:00 Docusate Sodium (Colace) 100 mg TWICE A DAY ORAL 10/28/18 09:00 11/26/18 17:59 Doxycycline Hyclate 100 mg/ Dextrose 110 ml @ 110 mls/hr Q12HR IV 10/28/18 09:00 11/03/18 08:59 Furosemide (Lasix) 40 mg BID IV 10/28/18 09:00 11/26/18 08:59 10/28/18 17:25 Heparin Sodium (Porcine) (Heparin 5000 units/ml) 5,000 units EVERY 12 HOURS SUBQ 10/28/18 09:00 11/26/18 08:59 Lisinopril (Zestril) 10 mg DAILY ORAL 10/28/18 09:00 11/27/18 08:59 Olanzapine (ZyPREXA Zydis) 20 mg DAILY ORAL 10/28/18 09:00 11/26/18 08:59 Pantoprazole (Protonix) 40 mg ACBREAKFAST ORAL 10/29/18 06:30 11/27/18 06:29 Spironolactone (Aldactone) 25 mg DAILY ORAL 10/28/18 09:00 11/27/18 08:59 Thiamine HCl (Vitamin B1) 100 mg DAILY ORAL 10/28/18 09:00 11/26/18 08:59 Lexa El MD Oct 28, 2018 18:01
[2018-10-28 18:13] LABS: CREATININE 1.3 MG/DL (0.55-1.30)
--- NOTE | 2018-10-28 19:25 | NUR ---
HAND-OFF: Report given to Haroon MENDES. Pt remains stable.
--- NOTE | 2018-10-28 19:30 | NUR ---
NURSE NOTES: Received report from CINTHYA Nathan. Pt is awake and resting in bed. In no acute distress. IV line intact and patent. Pt on site monitor. Bed in lowest position, call light within reach. Will continue plan of care.
[2018-10-28 20:00] VITALS: BP 120/66
--- NOTE | 2018-10-28 21:32 | General Progress Note ---
Assessment/Plan Problem List: (1) Pericardial effusion ICD Codes: I31.3 - Pericardial effusion (noninflammatory) SNOMED: 222246166 (2) CHF (congestive heart failure) ICD Codes: I50.9 - Heart failure, unspecified SNOMED: 25120601 (3) Pleural effusion ICD Codes: J90 - Pleural effusion, not elsewhere classified SNOMED: 38824897 (4) Pneumonia ICD Codes: J18.9 - Pneumonia, unspecified organism SNOMED: 153299074 (5) AMRIT (acute kidney injury) ICD Codes: N17.9 - Acute kidney failure, unspecified SNOMED: 5953629, 38137011 (6) Abnormal LFTs ICD Codes: R94.5 - Abnormal results of liver function studies SNOMED: 733242743 Status: stable, progressing Assessment/Plan: afebrile refuses meds schizophrenia consulted dr hampton pleural effusion pna chf fluid overload refuses meds Subjective ROS Limited/Unobtainable: Yes Allergies: Coded Allergies: No Known Allergies (Unverified , 10/26/18) Objective Last 24 Hour Vital Signs Date Time Temp Pulse Resp B/P (MAP) Pulse Ox O2 Delivery O2 Flow Rate FiO2 10/28/18 20:59 116 120/66 10/28/18 16:00 Nasal Cannula 2.0 10/28/18 16:00 101 10/28/18 16:00 98.0 111 22 118/81 (93) 95 10/28/18 16:00 2.0 10/28/18 12:00 97.9 116 22 113/79 (90) 94 10/28/18 12:00 Nasal Cannula 2.0 10/28/18 12:00 2.0 10/28/18 12:00 111 10/28/18 09:00 116/84 10/28/18 09:00 116 116/84 10/28/18 08:00 97.3 116 22 116/84 (95) 98 10/28/18 08:00 Nasal Cannula 2.0 10/28/18 08:00 124 10/28/18 08:00 2.0 10/28/18 04:00 Nasal Cannula 2.0 10/28/18 04:00 97.3 105 20 110/81 (91) 97 10/28/18 04:00 2.0 10/28/18 03:24 104 10/28/18 00:00 105 10/28/18 00:00 Nasal Cannula 2.0 10/28/18 00:00 97.5 103 20 106/76 (86) 97 Intake and Output 10/27/18 10/28/18 19:00 07:00 Intake Total 560 ml 165 ml Output Total 1880 ml 1800 ml Balance -1320 ml -1635 ml Intake Oral 450 ml IV Total 110 ml 165 ml Output Urine Total 1030 ml 1800 ml Other 850 ml # Voids 8 9 Laboratory Tests 10/28/18 03:50: White Blood Count 5.2, Red Blood Count 4.70, Hemoglobin 14.4, Hematocrit 44.8, Mean Corpuscular Volume 95, Mean Corpuscular Hemoglobin 30.7, Mean Corpuscular Hemoglobin Concent 32.2, Red Cell Distribution Width 14.3, Platelet Count 178, Mean Platelet Volume 9.1, Neutrophils (%) (Auto) 61.8, Lymphocytes (%) (Auto) 22.8, Monocytes (%) (Auto) 9.9, Eosinophils (%) (Auto) 4.2H, Basophils (%) (Auto ) 1.3, Sodium Level 146H, Potassium Level 4.2, Chloride Level 110H, Carbon Dioxide Level 31, Anion Gap 5, Blood Urea Nitrogen 25H, Creatinine 1.1, Estimat Glomerular Filtration Rate > 60, Glucose Level 86, Uric Acid 9.0H, Calcium Level 8.8, Phosphorus Level 4.1, Magnesium Level 2.0, Total Bilirubin 1.8H, Direct Bilirubin 0.6H, Aspartate Amino Transf (AST/SGOT) 27, Alanine Aminotransferase (ALT/SGPT) 35, Alkaline Phosphatase 84, Lactate Dehydrogenase 209, Troponin I 0.037, C-Reactive Protein, Quantitative 1.7H, Pro-B-Type Natriuretic Peptide 91804S, Total Protein 5.1L, Albumin 2.6L, Globulin 2.5, Albumin/Globulin Ratio 1.0, Carcinoembryonic Antigen [Pending], Thyroid Stimulating Hormone (TSH) 3.038, Free Thyroxine 1.06, Hepatitis A IgM Antibody [ Pending], Hepatitis B Surface Antigen [Pending], Hepatitis B Core IgM Antibody [ Pending], Hepatitis C Antibody [Pending] Height (Feet): 5 Height (Inches): 11.00 Weight (Pounds): 191 Neck: supple Cardiovascular: normal rate Respiratory/Chest: lungs clear Abdomen: soft Cate Gonzales MD Oct 28, 2018 21:32
[2018-10-29] VITALS: BP 105/71
[2018-10-29] MEDS: cefTRIAXone 1 GM in D5W 55 ML IVPB SCH ×2 (00:54→23:20)
[2018-10-29 04:00] VITALS: BP 122/78
[2018-10-29 07:08] LABS: BASOPHILS % (AUTO) 0.9 % (0.0-2.0); EOSINOPHILS % (AUTO) 3.8 % (0.0-3.0); HEMATOCRIT 44.5 % (42.0-52.0); HEMOGLOBIN 14.1 G/DL (14.2-18.0); LYMPHOCYTES % (AUTO) 28.4 % (20.0-45.0); MEAN CORPUSCULAR VOLUME 96 FL (80-99); MONOCYTES % (AUTO) 11.9 % (1.0-10.0); PLATELET COUNT 165 K/UL (150-450); RED BLOOD COUNT 4.63 M/UL (4.70-6.10); RED CELL DISTRIBUTION WIDTH 13.8 % (11.6-14.8)
[2018-10-29 07:18] LABS: ALANINE AMINOTRANSFERASE 29 U/L (12-78); ALBUMIN 2.5 G/DL (3.4-5.0); ALBUMIN/GLOBULIN RATIO 0.8 (1.0-2.7); ALKALINE PHOSPHATASE 92 U/L (46-116); ANION GAP 8 mmol/L (5-15); ASPARTATE AMINO TRANSFERASE 24 U/L (15-37); BILIRUBIN,TOTAL 1.2 MG/DL (0.2-1.0); BLOOD UREA NITROGEN 26 mg/dL (7-18); CALCIUM 8.7 MG/DL (8.5-10.1); CARBON DIOXIDE 32 MMOL/L (21-32); CHLORIDE 106 MMOL/L (98-107); CREATININE 1.4 MG/DL (0.55-1.30); GAMMA GLUTAMYL TRANSPEPTIDASE 114 U/L (5-85); PHOSPHORUS 4.1 MG/DL (2.5-4.9); POTASSIUM 3.6 MMOL/L (3.5-5.1); SODIUM 146 MMOL/L (136-145)
[2018-10-29 07:21] LABS: BILIRUBIN,DIRECT 0.4 MG/DL (0.0-0.3)
--- NOTE | 2018-10-29 07:25 | NUR ---
NURSE NOTES: Received report from Haroon MENDES. Pt is awake and resting in bed. In no acute distress. IV line intact and patent. Pt on child monitor. Bed in lowest position, call light within reach. Will continue plan of care.
--- NOTE | 2018-10-29 07:28 | NUR ---
HAND-OFF: Report given to CINTHYA Nathan.
--- NOTE | 2018-10-29 07:31 | Nephrology Progress Note ---
Assessment/Plan Problem List: (1) Cardiorenal syndrome (2) CHF (congestive heart failure) (3) Pericardial effusion (4) Pleural effusion (5) Abnormal LFTs Assessment Anasarca: likely cardiac and cardiomyopathy Has proteinuria Cr mildly elevated on admission now wnl h/o Schizophrenia Plan 2D Echo noted Abd KEIRA noted 24 H urine CrCl and Total Protein pending Monitor renal parameters TFT HgbA1c noted per current management optimize cardiac status Psych consult per PMD ( schizophrenia history- uncoaporative) echo: Mild left ventricular enlargement . Global left ventricular hypokinesis with anteroseptal dyskinesis ,ischemic cardiomyopathy can not be excluded . Left ventricular ejection fraction estimated to be 20-25%. KEIRA: To-and-fro flow within the main portal vein may indicate portal hypertension Hepatomegaly Ascites Cholelithiasis. Gallbladder wall thickening may be related to the hemodynamic changes causing the ascites, but the possibility of acute cholecystitis should also be considered. Consider hepatobiliary nuclear scan if there is high clinical suspicion Negative for dilated bile ducts Bilateral pleural effusions Subjective ROS Limited/Unobtainable: No Constitutional: Reports: malaise Objective Objective Last 24 Hour Vital Signs Date Time Temp Pulse Resp B/P (MAP) Pulse Ox O2 Delivery O2 Flow Rate FiO2 10/29/18 04:00 121 10/29/18 04:00 97.7 121 19 122/78 (93) 99 10/29/18 00:00 98.1 109 19 105/71 (82) 96 10/29/18 00:00 109 10/28/18 21:00 Nasal Cannula 2.0 10/28/18 20:59 116 120/66 10/28/18 20:00 97.2 110 20 120/66 (84) 96 10/28/18 20:00 110 10/28/18 16:00 Nasal Cannula 2.0 10/28/18 16:00 101 10/28/18 16:00 98.0 111 22 118/81 (93) 95 10/28/18 16:00 2.0 10/28/18 12:00 97.9 116 22 113/79 (90) 94 10/28/18 12:00 Nasal Cannula 2.0 10/28/18 12:00 2.0 10/28/18 12:00 111 10/28/18 09:00 116/84 10/28/18 09:00 116 116/84 10/28/18 08:00 97.3 116 22 116/84 (95) 98 10/28/18 08:00 Nasal Cannula 2.0 10/28/18 08:00 124 10/28/18 08:00 2.0 Intake and Output 10/28/18 10/29/18 19:00 07:00 Intake Total 410 ml Output Total 1000 ml Balance -1000 ml 410 ml Intake Oral 300 ml IV Total 110 ml Output Urine Total 1000 ml # Voids 6 4 # Bowel Movements 1 Laboratory Tests 10/29/18 05:49: White Blood Count 5.0, Red Blood Count 4.63L, Hemoglobin 14.1L, Hematocrit 44.5 , Mean Corpuscular Volume 96, Mean Corpuscular Hemoglobin 30.4, Mean Corpuscular Hemoglobin Concent 31.7L, Red Cell Distribution Width 13.8, Platelet Count 165, Mean Platelet Volume 7.9, Neutrophils (%) (Auto) 55.0, Lymphocytes (%) (Auto) 28.4, Monocytes (%) (Auto) 11.9H, Eosinophils (%) (Auto) 3.8H, Basophils (%) (Auto) 0.9, Sodium Level 146H, Potassium Level 3.6, Chloride Level 106, Carbon Dioxide Level 32, Anion Gap 8, Blood Urea Nitrogen 26H, Creatinine 1.4H, Estimat Glomerular Filtration Rate 51.4, Glucose Level 99 , Uric Acid 8.3H, Calcium Level 8.7, Phosphorus Level 4.1, Magnesium Level 1.9, Total Bilirubin 1.2H, Direct Bilirubin 0.4H, Gamma Glutamyl Transpeptidase 114H , Aspartate Amino Transf (AST/SGOT) 24, Alanine Aminotransferase (ALT/SGPT) 29, Alkaline Phosphatase 92, Total Protein 5.6L, Albumin 2.5L, Globulin 3.1, Albumin /Globulin Ratio 0.8L Height (Feet): 5 Height (Inches): 11.00 Weight (Pounds): 176 General Appearance: no apparent distress Cardiovascular: tachycardia Respiratory/Chest: decreased breath sounds Abdomen: distended Jasbir Corbin MD Oct 29, 2018 07:31
[2018-10-29 08:00] VITALS: BP 104/64
[2018-10-29] MEDS: Docusate 100mg cap ORAL SCH ×2 (09:00→17:40)
[2018-10-29] MEDS: Lisinopril 10mg tab ORAL SCH (09:00)
[2018-10-29] MEDS: Spironolactone 25mg tab ORAL SCH (09:00)
[2018-10-29] MEDS: ZyPREXA Zydis 10mg tab ORAL SCH (09:00)
[2018-10-29] MEDS: Heparin 5000 units/ml inj SUBQ SCH ×2 (09:00→21:00)
[2018-10-29] MEDS: Thiamine 100mg tab ORAL SCH (09:00)
[2018-10-29] MEDS: Doxycycline Hyclate 100 MG in D5W 110 ML IV SCH ×2 (09:26→21:15)
--- NOTE | 2018-10-29 10:24 | Pulmonology Progress Note ---
Assessment/Plan Assessment/Plan Pulmonary Progress Note HPI Patient is a 63-year old man with admitted with shortness of breath, lower extremity and scrotal edema/pain. Denies cough, no chest pain. Noted to have features of CHF right lower lobe infiltrate/effusion. Symptoms is been present for at least a week. He notes worsening exertional dyspnea, diffuse swelling, has some pain with urination. Denies any medical history including heart disease, CHF, COPD. He does smoke and states he quit 1 week ago. Denies alcohol use. Denies any recent fevers, chills, vomiting, diarrhea. No new complaints PMH: Schizophrenia Allergies: NKDA Social Hx: Uses tobacco. Denies drugs or alcohol All Other Systems: negative except mentioned in HPI Physical Exam Vital Signs Noted General: Awake and alert, note distressed on oxygen HEENT: NCAT. EOMI. Neck: Supple, No LN Chest Wall: No tenderness, no deformity Cardiovascular: Tachycardic. RRR. S1 and S2 normal. No murmur noted. Resp: Basal crackles bilaterally. No wheezing. Reduced right basal BS Abdomen: Abdomen is distended. Nontender to palpation. Diffuse anasarca Skin: Diffuse anasarca over the entire abdomen and over the lower extremities bilaterally. Testicular enlargement. MSK: Normal tone and bulk. Moving all extremities. No obvious deformity. Neuro: Awake and alert. No focal signs. Bedside Echo in ED: Findings include cardiomegaly, trace pericardial effusion without significant right ventricle or right atrial collapse. Left ventricle appears somewhat enlarged. Impression: Congestive Heart Failure Right sided Pulmonary Infiltrates s/o Pneumonia Right pleural effusion AMRIT (acute kidney injury) Small Pericardial effusion Plan: Diurese PRN Ceftraixone/Doxycycline Monitor labs PPX O2 PRN Thoracentesis ST evaluation R/O DVT Laboratory Tests Noted EKG: Rate: tachycardiac Rhythm: NSR, Sinus tachycardia rate 115 bpm, prolonged QTC at 522 ms, normal axis. Low voltage in the limb leads and left bundle branch block pattern in the precordial leads. Chest X-Ray: Cardiomegaly, bilateral congestion, RLL effusion, questionable infiltrate in the right lower lobe Subjective ROS Limited/Unobtainable: No Allergies: Coded Allergies: No Known Allergies (Unverified , 10/26/18) Objective Last 24 Hour Vital Signs Date Time Temp Pulse Resp B/P (MAP) Pulse Ox O2 Delivery O2 Flow Rate FiO2 9/6/19 09:00 104/64 10/29/18 09:00 105 104/64 10/29/18 08:00 97.7 105 22 104/64 (77) 93 10/29/18 04:00 121 10/29/18 04:00 97.7 121 19 122/78 (93) 99 10/29/18 00:00 98.1 109 19 105/71 (82) 96 10/29/18 00:00 109 10/28/18 21:00 Nasal Cannula 2.0 10/28/18 20:59 116 120/66 10/28/18 20:00 97.2 110 20 120/66 (84) 96 10/28/18 20:00 110 10/28/18 16:00 Nasal Cannula 2.0 10/28/18 16:00 101 10/28/18 16:00 98.0 111 22 118/81 (93) 95 10/28/18 16:00 2.0 10/28/18 12:00 97.9 116 22 113/79 (90) 94 10/28/18 12:00 Nasal Cannula 2.0 10/28/18 12:00 2.0 10/28/18 12:00 111 Intake and Output 10/28/18 10/29/18 19:00 07:00 Intake Total 410 ml Output Total 1000 ml Balance -1000 ml 410 ml Intake Oral 300 ml IV Total 110 ml Output Urine Total 1000 ml # Voids 6 4 # Bowel Movements 1 Microbiology Date/Time Source Procedure Growth Status 10/27/18 14:00 Other Fluid Gram Stain - Final Resulted 10/27/18 14:00 Other Fluid Body Fluid Culture - Preliminary NO GROWTH AFTER 24 HOURS Resulted Laboratory Tests 10/29/18 05:49: White Blood Count 5.0, Red Blood Count 4.63L, Hemoglobin 14.1L, Hematocrit 44.5 , Mean Corpuscular Volume 96, Mean Corpuscular Hemoglobin 30.4, Mean Corpuscular Hemoglobin Concent 31.7L, Red Cell Distribution Width 13.8, Platelet Count 165, Mean Platelet Volume 7.9, Neutrophils (%) (Auto) 55.0, Lymphocytes (%) (Auto) 28.4, Monocytes (%) (Auto) 11.9H, Eosinophils (%) (Auto) 3.8H, Basophils (%) (Auto) 0.9, Sodium Level 146H, Potassium Level 3.6, Chloride Level 106, Carbon Dioxide Level 32, Anion Gap 8, Blood Urea Nitrogen 26H, Creatinine 1.4H, Estimat Glomerular Filtration Rate 51.4, Glucose Level 99 , Uric Acid 8.3H, Calcium Level 8.7, Phosphorus Level 4.1, Magnesium Level 1.9, Total Bilirubin 1.2H, Direct Bilirubin 0.4H, Gamma Glutamyl Transpeptidase 114H , Aspartate Amino Transf (AST/SGOT) 24, Alanine Aminotransferase (ALT/SGPT) 29, Alkaline Phosphatase 92, Total Protein 5.6L, Albumin 2.5L, Globulin 3.1, Albumin /Globulin Ratio 0.8L Current Medications Medications (Trade) Dose Ordered Sig/Judah Route PRN Reason Start Time Stop Time Status Last Admin Dose Admin Carvedilol (Coreg) 3.125 mg EVERY 12 HOURS ORAL 10/28/18 09:00 11/26/18 20:59 Ceftriaxone Sodium 1 gm/ Dextrose 55 ml @ 110 mls/hr Q24H IVPB 10/29/18 00:00 11/03/18 00:00 10/29/18 00:54 Docusate Sodium (Colace) 100 mg TWICE A DAY ORAL 10/28/18 09:00 11/26/18 17:59 Doxycycline Hyclate 100 mg/ Dextrose 110 ml @ 110 mls/hr Q12HR IV 10/28/18 09:00 11/03/18 08:59 10/29/18 09:26 Furosemide (Lasix) 40 mg BID IV 10/28/18 09:00 11/26/18 08:59 10/29/18 09:26 Heparin Sodium (Porcine) (Heparin 5000 units/ml) 5,000 units EVERY 12 HOURS SUBQ 10/28/18 09:00 11/26/18 08:59 Lisinopril (Zestril) 10 mg DAILY ORAL 10/28/18 09:00 11/27/18 08:59 Olanzapine (ZyPREXA Zydis) 20 mg DAILY ORAL 10/28/18 09:00 11/26/18 08:59 Pantoprazole (Protonix) 40 mg ACBREAKFAST ORAL 10/29/18 06:30 11/27/18 06:29 Spironolactone (Aldactone) 25 mg DAILY ORAL 10/28/18 09:00 11/27/18 08:59 Thiamine HCl (Vitamin B1) 100 mg DAILY ORAL 10/28/18 09:00 11/26/18 08:59 Lexa El MD Oct 29, 2018 10:24
--- NOTE | 2018-10-29 11:49 | NUR ---
*-* INSURANCE *-* ALL CLINICALS AND REVIEW HAVE BEEN FAXED TO: [facility] MAYEM: RENÉ VINCENT# [id number] P: [phone] F: [phone] F# [phone] P: [phone] DISCHARGING NEEDS PLS CALL P: [phone]
[2018-10-29 12:00] VITALS: BP 107/76
--- NOTE | 2018-10-29 12:58 | Hematology/Onc Progress Note ---
Assessment/Plan Assessment/Plan # Elevated d-dimer on admission - have reviewed imaging, can be elevated in setting of acute exacerbation of chf, the nuclear v/q scan was negative --> v/q scan was indeterminate pe probability --> venous duplex negative --> unlikely indicator in this setting of vte even # Anemia of chronic disease --> likely chf related, multifactorial process # Right sided Pulmonary Infiltrates s/o Pneumonia --> diuresis as per pulm --> very poor complian # Right pleural effusion -- thora prn # AMRIT (acute kidney injury) --> per renal # Small Pericardial effusion # Pna -- on abx as per id # noncompliance # Dvt ppx with heparin sq The timing of this note does not necessarily reflect the time of the patient was seen. Greatly appreciate consultation. Subjective Constitutional: Denies: no symptoms, chills, fever, malaise, weakness, other HEENT: Denies: no symptoms, eye pain, blurred vision, tearing, double vision, ear pain, ear discharge, nose pain, nose congestion, throat pain, throat swelling, mouth pain, mouth swelling, other Cardiovascular: Denies: no symptoms, chest pain, edema, irregular heart rate, lightheadedness, palpitations, syncope, other Respiratory: Denies: no symptoms, cough, shortness of breath, SOB with excertion, SOB at rest, sputum, wheezing, other Gastrointestinal/Abdominal: Denies: no symptoms, abdomen distended, abdominal pain, black stools, tarry stools, blood in stool, constipated, diarrhea, difficulty swallowing, nausea, poor appetite, poor fluid intake, rectal bleeding , vomiting, other Genitourinary: Denies: no symptoms, burning, discharge, frequency, flank pain, hematuria, incontinence, pain, urgency, other Neurologic/Psychiatric: Denies: no symptoms, anxiety, depressed, emotional problems, headache, numbness, paresthesia, pre-existing deficit, seizure, tingling, tremors, weakness, other Allergies: Coded Allergies: No Known Allergies (Unverified , 10/26/18) Subjective 10/29: no bleeding, no chills, cbc stable, d-dimer elevated before, sob better Objective Objective Current Medications Medications (Trade) Dose Ordered Sig/Judah Route PRN Reason Start Time Stop Time Status Last Admin Dose Admin Carvedilol (Coreg) 3.125 mg EVERY 12 HOURS ORAL 10/28/18 09:00 11/26/18 20:59 Ceftriaxone Sodium 1 gm/ Dextrose 55 ml @ 110 mls/hr Q24H IVPB 10/29/18 00:00 11/03/18 00:00 10/29/18 00:54 Docusate Sodium (Colace) 100 mg TWICE A DAY ORAL 10/28/18 09:00 11/26/18 17:59 Doxycycline Hyclate 100 mg/ Dextrose 110 ml @ 110 mls/hr Q12HR IV 10/28/18 09:00 11/03/18 08:59 10/29/18 09:26 Furosemide (Lasix) 40 mg BID IV 10/28/18 09:00 11/26/18 08:59 10/29/18 09:26 Heparin Sodium (Porcine) (Heparin 5000 units/ml) 5,000 units EVERY 12 HOURS SUBQ 10/28/18 09:00 11/26/18 08:59 Lisinopril (Zestril) 10 mg DAILY ORAL 10/28/18 09:00 11/27/18 08:59 Olanzapine (ZyPREXA Zydis) 20 mg DAILY ORAL 10/28/18 09:00 11/26/18 08:59 Pantoprazole (Protonix) 40 mg ACBREAKFAST ORAL 10/29/18 06:30 11/27/18 06:29 Spironolactone (Aldactone) 25 mg DAILY ORAL 10/28/18 09:00 11/27/18 08:59 Thiamine HCl (Vitamin B1) 100 mg DAILY ORAL 10/28/18 09:00 11/26/18 08:59 Last 24 Hour Vital Signs Date Time Temp Pulse Resp B/P (MAP) Pulse Ox O2 Delivery O2 Flow Rate FiO2 10/29/18 12:00 98.0 97 18 107/76 (86) 95 10/29/18 09:00 104/64 10/29/18 09:00 105 104/64 10/29/18 08:00 97.7 105 22 104/64 (77) 93 10/29/18 08:00 104 10/29/18 04:00 121 10/29/18 04:00 97.7 121 19 122/78 (93) 99 10/29/18 00:00 98.1 109 19 105/71 (82) 96 10/29/18 00:00 109 10/28/18 21:00 Nasal Cannula 2.0 10/28/18 20:59 116 120/66 10/28/18 20:00 97.2 110 20 120/66 (84) 96 10/28/18 20:00 110 10/28/18 16:00 Nasal Cannula 2.0 10/28/18 16:00 101 10/28/18 16:00 98.0 111 22 118/81 (93) 95 10/28/18 16:00 2.0 10/28/18 12:00 97.9 116 22 113/79 (90) 94 10/28/18 12:00 Nasal Cannula 2.0 10/28/18 12:00 2.0 10/28/18 12:00 111 10/28/18 09:00 116/84 10/28/18 09:00 116 116/84 10/28/18 08:00 97.3 116 22 116/84 (95) 98 10/28/18 08:00 Nasal Cannula 2.0 10/28/18 08:00 124 10/28/18 08:00 2.0 10/28/18 04:00 Nasal Cannula 2.0 10/28/18 04:00 97.3 105 20 110/81 (91) 97 10/28/18 04:00 2.0 10/28/18 03:24 104 10/28/18 00:00 105 10/28/18 00:00 Nasal Cannula 2.0 10/28/18 00:00 97.5 103 20 106/76 (86) 97 10/27/18 21:15 118 125/81 10/27/18 20:00 97.7 118 20 125/81 (96) 97 10/27/18 20:00 128 10/27/18 20:00 Nasal Cannula 2.0 10/27/18 20:00 2.0 10/27/18 16:00 2.0 10/27/18 16:00 Nasal Cannula 2.0 10/27/18 16:00 97.5 100 18 128/92 (104) 99 10/27/18 15:32 107 Intake and Output 10/28/18 10/29/18 18:59 06:59 Intake Total 410 ml Output Total 1000 ml Balance -1000 ml 410 ml Intake Oral 300 ml IV Total 110 ml Output Urine Total 1000 ml # Voids 6 4 # Bowel Movements 1 Labs Test 10/26/18 19:30 10/26/18 19:59 10/26/18 21:40 10/27/18 02:55 White Blood Count 7.7 K/UL (4.8-10.8) 6.7 K/UL (4.8-10.8) Red Blood Count 5.33 M/UL (4.70-6.10) 4.56 M/UL (4.70-6.10) Hemoglobin 16.4 G/DL (14.2-18.0) 13.9 G/DL (14.2-18.0) Hematocrit 49.6 % (42.0-52.0) 43.9 % (42.0-52.0) Mean Corpuscular Volume 93 FL (80-99) 96 FL (80-99) Mean Corpuscular Hemoglobin 30.8 PG (27.0-31.0) 30.5 PG (27.0-31.0) Mean Corpuscular Hemoglobin Concent 33.1 G/DL (32.0-36.0) 31.7 G/DL (32.0-36.0) Red Cell Distribution Width 13.8 % (11.6-14.8) 14.2 % (11.6-14.8) Platelet Count 205 K/UL (150-450) 171 K/UL (150-450) Mean Platelet Volume 8.0 FL (6.5-10.1) 8.5 FL (6.5-10.1) Neutrophils (%) (Auto) 66.8 % (45.0-75.0) 66.2 % (45.0-75.0) Lymphocytes (%) (Auto) 21.5 % (20.0-45.0) 20.7 % (20.0-45.0) Monocytes (%) (Auto) 8.9 % (1.0-10.0) 10.9 % (1.0-10.0) Eosinophils (%) (Auto) 1.4 % (0.0-3.0) 1.2 % (0.0-3.0) Basophils (%) (Auto) 1.4 % (0.0-2.0) 1.0 % (0.0-2.0) Prothrombin Time 12.8 SEC (9.30-11.50) Prothromb Time International Ratio 1.2 (0.9-1.1) Activated Partial Thromboplast Time 27 SEC (23-33) Sodium Level 145 MMOL/L (136-145) 146 MMOL/L (136-145) Potassium Level 5.2 MMOL/L (3.5-5.1) 3.8 MMOL/L (3.5-5.1) Chloride Level 109 MMOL/L (98-107) 109 MMOL/L (98-107) Carbon Dioxide Level 28 MMOL/L (21-32) 30 MMOL/L (21-32) Anion Gap 8 mmol/L (5-15) 7 mmol/L (5-15) Blood Urea Nitrogen 31 mg/dL (7-18) 29 mg/dL (7-18) Creatinine 1.4 MG/DL (0.55-1.30) 1.3 MG/DL (0.55-1.30) Estimat Glomerular Filtration Rate 51.4 mL/min (>60) 55.9 mL/min (>60) Glucose Level 79 MG/DL (74-106) 96 MG/DL (74-106) Calcium Level 9.4 MG/DL (8.5-10.1) 8.5 MG/DL (8.5-10.1) Total Bilirubin 1.8 MG/DL (0.2-1.0) Direct Bilirubin 0.8 MG/DL (0.0-0.3) Aspartate Amino Transf (AST/SGOT) 33 U/L (15-37) Alanine Aminotransferase (ALT/SGPT) 53 U/L (12-78) Alkaline Phosphatase 108 U/L (46-116) Total Creatine Kinase 100 U/L (26-308) Creatine Kinase MB 2.6 NG/ML (0.0-3.6) Creatine Kinase MB Relative Index 2.6 Troponin I 0.023 ng/mL (0.000-0.056) Pro-B-Type Natriuretic Peptide 23554 pg/mL (0-125) Total Protein 6.5 G/DL (6.4-8.2) Albumin 3.3 G/DL (3.4-5.0) Globulin 3.2 g/dL Albumin/Globulin Ratio 1.0 (1.0-2.7) Lipase 275 U/L (73-393) Arterial Blood pH 7.427 (7.350-7.450) Arterial Blood Partial Pressure CO2 34.3 mmHg (35.0-45.0) Arterial Blood Partial Pressure O2 174.9 mmHg (75.0-100.0) Arterial Blood HCO3 22.1 mmol/L (22.0-26.0) Arterial Blood Oxygen Saturation 99.0 % (95-100) Arterial Blood Base Excess -1.5 (-2-2) Alexi Test Positive Urine Color Yellow Urine Appearance Clear Urine pH 6 (4.5-8.0) Urine Specific [place] 1.015 (1.005-1.035) Urine Protein 2+ (NEGATIVE) Urine Glucose (UA) Negative (NEGATIVE) Urine Ketones Negative (NEGATIVE) Urine Blood Negative (NEGATIVE) Urine Nitrite Negative (NEGATIVE) Urine Bilirubin Negative (NEGATIVE) Urine Urobilinogen 1 MG/DL (0.0-1.0) Urine Leukocyte Esterase Negative (NEGATIVE) Urine RBC 0 /HPF (0 - 0) Urine WBC 0 /HPF (0 - 0) Urine Squamous Epithelial Cells None /LPF (NONE/OCC) Urine Amorphous Sediment Few /LPF (NONE) Urine Bacteria Occasional /HPF (NONE) Test 10/27/18 10:15 10/27/18 13:00 10/27/18 13:10 10/27/18 14:00 White Blood Count 6.6 K/UL (4.8-10.8) Red Blood Count 4.96 M/UL (4.70-6.10) Hemoglobin 15.0 G/DL (14.2-18.0) Hematocrit 47.3 % (42.0-52.0) Mean Corpuscular Volume 95 FL (80-99) Mean Corpuscular Hemoglobin 30.2 PG (27.0-31.0) Mean Corpuscular Hemoglobin Concent 31.7 G/DL (32.0-36.0) Red Cell Distribution Width 14.3 % (11.6-14.8) Platelet Count 203 K/UL (150-450) Mean Platelet Volume 9.2 FL (6.5-10.1) Neutrophils (%) (Auto) 71.0 % (45.0-75.0) Lymphocytes (%) (Auto) 15.6 % (20.0-45.0) Monocytes (%) (Auto) 10.6 % (1.0-10.0) Eosinophils (%) (Auto) 1.5 % (0.0-3.0) Basophils (%) (Auto) 1.2 % (0.0-2.0) Sodium Level 145 MMOL/L (136-145) Potassium Level 4.0 MMOL/L (3.5-5.1) Chloride Level 109 MMOL/L (98-107) Carbon Dioxide Level 28 MMOL/L (21-32) Anion Gap 8 mmol/L (5-15) Blood Urea Nitrogen 26 mg/dL (7-18) Creatinine 1.2 MG/DL (0.55-1.30) 1.3 MG/DL (0.55-1.30) Estimat Glomerular Filtration Rate > 60 mL/min (>60) 55.9 mL/min (>60) Glucose Level 113 MG/DL (74-106) Hemoglobin A1c 6.0 % (4.3-6.0) Uric Acid 8.6 MG/DL (2.6-7.2) Calcium Level 8.6 MG/DL (8.5-10.1) Phosphorus Level 3.8 MG/DL (2.5-4.9) Magnesium Level 2.1 MG/DL (1.8-2.4) Total Bilirubin 1.5 MG/DL (0.2-1.0) Direct Bilirubin 0.6 MG/DL (0.0-0.3) Gamma Glutamyl Transpeptidase 116 U/L (5-85) Aspartate Amino Transf (AST/SGOT) 30 U/L (15-37) Alanine Aminotransferase (ALT/SGPT) 39 U/L (12-78) Alkaline Phosphatase 88 U/L (46-116) Ammonia 54 umol/L (11-32) Total Creatine Kinase 77 U/L (26-308) C-Reactive Protein, Quantitative 1.5 mg/dL (0.00-0.90) Pro-B-Type Natriuretic Peptide 17194 pg/mL (0-125) Total Protein 5.8 G/DL (6.4-8.2) Albumin 2.8 G/DL (3.4-5.0) Globulin 3.0 g/dL Albumin/Globulin Ratio 0.9 (1.0-2.7) Triglycerides Level 63 MG/DL (30-150) Cholesterol Level 104 MG/DL (< 200) LDL Cholesterol 57 mg/dL (<100) HDL Cholesterol 34 MG/DL (40-60) Cholesterol/HDL Ratio 3.1 (3.3-4.4) Vitamin B12 Level 1728 PG/ML (193-986) Folate 17.5 NG/ML (8.6-58.9) Thyroid Stimulating Hormone (TSH) 1.976 uiU/mL (0.358-3.740) Urine Collection Time 24 HRS Urine Total Volume 3500 ML Urine Creatinine 14 MG/DL Urine Creatinine 24 Hour 490 mg/24hr (7389-1813) Patient Height Inches (Creat Clear) 71 INCHES Patient Weight Pounds (Creat Clear) 191 LBS Creatinine Clearance 22 mL/min (71-151) Urine Total Protein mg/dL 11 mg/dL Urine Total Protein 24 Hour 10.7 mg/24hr (< 150) D-Dimer 2.77 mg/L FEU (0.00-0.49) Body Fluid Source R thoracentesis Body Fluid Volume 24 mL Body Fluid Appearance Hazy (Clear) Body Fluid RBC 1344 /CUMM Body Fluid Total Nucleated Cells 104 /CUMM Body Fluid Polynuclear WBCs (%) 23 % Body Fluid Mononuclear WBCs (%) 65 % Body Fluid Mesothelial Cells (%) 12 % Body Fluid Total Protein 1.2 g/dL (.) Body Fluid Lactate Dehydrogenase 57 IU/L (.) Urine Opiates Screen Negative (NEGATIVE) Urine Barbiturates Screen Negative (NEGATIVE) Phencyclidine (PCP) Screen Negative (NEGATIVE) Urine Amphetamines Screen Negative (NEGATIVE) Urine Benzodiazepines Screen Negative (NEGATIVE) Urine Cocaine Screen Negative (NEGATIVE) Urine Marijuana (THC) Screen Negative (NEGATIVE) Test 10/28/18 03:50 10/29/18 05:49 White Blood Count 5.2 K/UL (4.8-10.8) 5.0 K/UL (4.8-10.8) Red Blood Count 4.70 M/UL (4.70-6.10) 4.63 M/UL (4.70-6.10) Hemoglobin 14.4 G/DL (14.2-18.0) 14.1 G/DL (14.2-18.0) Hematocrit 44.8 % (42.0-52.0) 44.5 % (42.0-52.0) Mean Corpuscular Volume 95 FL (80-99) 96 FL (80-99) Mean Corpuscular Hemoglobin 30.7 PG (27.0-31.0) 30.4 PG (27.0-31.0) Mean Corpuscular Hemoglobin Concent 32.2 G/DL (32.0-36.0) 31.7 G/DL (32.0-36.0) Red Cell Distribution Width 14.3 % (11.6-14.8) 13.8 % (11.6-14.8) Platelet Count 178 K/UL (150-450) 165 K/UL (150-450) Mean Platelet Volume 9.1 FL (6.5-10.1) 7.9 FL (6.5-10.1) Neutrophils (%) (Auto) 61.8 % (45.0-75.0) 55.0 % (45.0-75.0) Lymphocytes (%) (Auto) 22.8 % (20.0-45.0) 28.4 % (20.0-45.0) Monocytes (%) (Auto) 9.9 % (1.0-10.0) 11.9 % (1.0-10.0) Eosinophils (%) (Auto) 4.2 % (0.0-3.0) 3.8 % (0.0-3.0) Basophils (%) (Auto) 1.3 % (0.0-2.0) 0.9 % (0.0-2.0) Sodium Level 146 MMOL/L (136-145) 146 MMOL/L (136-145) Potassium Level 4.2 MMOL/L (3.5-5.1) 3.6 MMOL/L (3.5-5.1) Chloride Level 110 MMOL/L (98-107) 106 MMOL/L (98-107) Carbon Dioxide Level 31 MMOL/L (21-32) 32 MMOL/L (21-32) Anion Gap 5 mmol/L (5-15) 8 mmol/L (5-15) Blood Urea Nitrogen 25 mg/dL (7-18) 26 mg/dL (7-18) Creatinine 1.1 MG/DL (0.55-1.30) 1.4 MG/DL (0.55-1.30) Estimat Glomerular Filtration Rate > 60 mL/min (>60) 51.4 mL/min (>60) Glucose Level 86 MG/DL (74-106) 99 MG/DL (74-106) Uric Acid 9.0 MG/DL (2.6-7.2) 8.3 MG/DL (2.6-7.2) Calcium Level 8.8 MG/DL (8.5-10.1) 8.7 MG/DL (8.5-10.1) Phosphorus Level 4.1 MG/DL (2.5-4.9) 4.1 MG/DL (2.5-4.9) Magnesium Level 2.0 MG/DL (1.8-2.4) 1.9 MG/DL (1.8-2.4) Total Bilirubin 1.8 MG/DL (0.2-1.0) 1.2 MG/DL (0.2-1.0) Direct Bilirubin 0.6 MG/DL (0.0-0.3) 0.4 MG/DL (0.0-0.3) Aspartate Amino Transf (AST/SGOT) 27 U/L (15-37) 24 U/L (15-37) Alanine Aminotransferase (ALT/SGPT) 35 U/L (12-78) 29 U/L (12-78) Alkaline Phosphatase 84 U/L (46-116) 92 U/L (46-116) Lactate Dehydrogenase 209 U/L (81-234) Troponin I 0.037 ng/mL (0.000-0.056) C-Reactive Protein, Quantitative 1.7 mg/dL (0.00-0.90) Pro-B-Type Natriuretic Peptide 67217 pg/mL (0-125) Total Protein 5.1 G/DL (6.4-8.2) 5.6 G/DL (6.4-8.2) Albumin 2.6 G/DL (3.4-5.0) 2.5 G/DL (3.4-5.0) Globulin 2.5 g/dL 3.1 g/dL Albumin/Globulin Ratio 1.0 (1.0-2.7) 0.8 (1.0-2.7) Carcinoembryonic Antigen 2.2 ng/mL (0.0-4.7) Thyroid Stimulating Hormone (TSH) 3.038 uiU/mL (0.358-3.740) Free Thyroxine 1.06 NG/DL (0.76-1.46) Hepatitis A IgM Antibody Negative (Negative) Hepatitis B Surface Antigen Negative (Negative) Hepatitis B Core IgM Antibody Negative (Negative) Hepatitis C Antibody <0.1 s/co ratio Gamma Glutamyl Transpeptidase 114 U/L (5-85) Height (Feet): 5 Height (Inches): 11.00 Weight (Pounds): 176 Objective Vitals: reviewed General Appearance: NAD HEENT: normocephalic, atraumatic Neck: non-tender, normal alignment Respiratory/Chest: ++ bilateral crackles noted on exam Cardiovascular/Chest: normal peripheral pulses, normal rate Abdomen: normal bowel sounds, soft Ext: 2+ edema lower ext noted Duncan Pereira MD Oct 29, 2018 12:58
--- NOTE | 2018-10-29 12:59 | NUR ---
COPY COORDINATORSANITATION LEAD SI: ACUTE KIDNEY INJURY T. 98.0 HR 121 RR 22 B/P 104/64 2L NC O2 SAT @ 98% NA 146 BUN 26 CR 1.4 IS: CEFTRIAXONE IV DOXYCYCLINE IV LASIX IV HEPARIN SUBC [facility] STATUS
--- NOTE | 2018-10-29 13:00 | Infectious Diseases Prog Note ---
Assessment/Plan Assessment/Plan MPRESSION: 1. Community-acquired pneumonia. 2. Systolic CHF, EF =20-25% 3. Acute kidney failure. 4. Schizophrenia. 5. Proteinuria. 6. Hepatomegaly 7. Portal hypertension 8. LBBB 9. Pleural effusion RECOMMENDATION: Continue with ceftriaxone and doxycycline. Subjective ROS Limited/Unobtainable: Yes Constitutional: Reports: no symptoms Respiratory: Reports: no symptoms Cardiovascular: Reports: no symptoms Gastrointestinal/Abdominal: Reports: no symptoms, other Genitourinary: Reports: other - scrotal pain & swelling Allergies: Coded Allergies: No Known Allergies (Unverified , 10/26/18) Objective Vital Signs Last 24 Hour Vital Signs Date Time Temp Pulse Resp B/P (MAP) Pulse Ox O2 Delivery O2 Flow Rate FiO2 10/29/18 12:00 98.0 97 18 107/76 (86) 95 10/29/18 09:00 104/64 10/29/18 09:00 105 104/64 10/29/18 08:00 97.7 105 22 104/64 (77) 93 10/29/18 08:00 104 10/29/18 04:00 121 10/29/18 04:00 97.7 121 19 122/78 (93) 99 10/29/18 00:00 98.1 109 19 105/71 (82) 96 10/29/18 00:00 109 10/28/18 21:00 Nasal Cannula 2.0 10/28/18 20:59 116 120/66 10/28/18 20:00 97.2 110 20 120/66 (84) 96 10/28/18 20:00 110 10/28/18 16:00 Nasal Cannula 2.0 10/28/18 16:00 101 10/28/18 16:00 98.0 111 22 118/81 (93) 95 10/28/18 16:00 2.0 Height (Feet): 5 Height (Inches): 11.00 Weight (Pounds): 176 HEENT: mucous membranes moist Respiratory/Chest: lungs clear Cardiovascular: normal rate Abdomen: distended, other - ascites Genitourinary: other - scrotal edema Extremities: other - edema of legs Neurologic/Psychiatric: alert, responsive Microbiology Date/Time Source Procedure Growth Status 10/27/18 14:00 Other Fluid Gram Stain - Final Resulted 10/27/18 14:00 Other Fluid Body Fluid Culture - Preliminary NO GROWTH AFTER 24 HOURS Resulted Laboratory Tests Test 10/29/18 05:49 White Blood Count 5.0 K/UL (4.8-10.8) Red Blood Count 4.63 M/UL (4.70-6.10) L Hemoglobin 14.1 G/DL (14.2-18.0) L Hematocrit 44.5 % (42.0-52.0) Mean Corpuscular Volume 96 FL (80-99) Mean Corpuscular Hemoglobin 30.4 PG (27.0-31.0) Mean Corpuscular Hemoglobin Concent 31.7 G/DL (32.0-36.0) L Red Cell Distribution Width 13.8 % (11.6-14.8) Platelet Count 165 K/UL (150-450) Mean Platelet Volume 7.9 FL (6.5-10.1) Neutrophils (%) (Auto) 55.0 % (45.0-75.0) Lymphocytes (%) (Auto) 28.4 % (20.0-45.0) Monocytes (%) (Auto) 11.9 % (1.0-10.0) H Eosinophils (%) (Auto) 3.8 % (0.0-3.0) H Basophils (%) (Auto) 0.9 % (0.0-2.0) Sodium Level 146 MMOL/L (136-145) H Potassium Level 3.6 MMOL/L (3.5-5.1) Chloride Level 106 MMOL/L (98-107) Carbon Dioxide Level 32 MMOL/L (21-32) Anion Gap 8 mmol/L (5-15) Blood Urea Nitrogen 26 mg/dL (7-18) H Creatinine 1.4 MG/DL (0.55-1.30) H Estimat Glomerular Filtration Rate 51.4 mL/min (>60) Glucose Level 99 MG/DL (74-106) Uric Acid 8.3 MG/DL (2.6-7.2) H Calcium Level 8.7 MG/DL (8.5-10.1) Phosphorus Level 4.1 MG/DL (2.5-4.9) Magnesium Level 1.9 MG/DL (1.8-2.4) Total Bilirubin 1.2 MG/DL (0.2-1.0) H Direct Bilirubin 0.4 MG/DL (0.0-0.3) H Gamma Glutamyl Transpeptidase 114 U/L (5-85) H Aspartate Amino Transf (AST/SGOT) 24 U/L (15-37) Alanine Aminotransferase (ALT/SGPT) 29 U/L (12-78) Alkaline Phosphatase 92 U/L (46-116) Total Protein 5.6 G/DL (6.4-8.2) L Albumin 2.5 G/DL (3.4-5.0) L Globulin 3.1 g/dL Albumin/Globulin Ratio 0.8 (1.0-2.7) L Current Medications Medications (Trade) Dose Ordered Sig/Judah Route PRN Reason Start Time Stop Time Status Last Admin Dose Admin Carvedilol (Coreg) 3.125 mg EVERY 12 HOURS ORAL 10/28/18 09:00 11/26/18 20:59 Ceftriaxone Sodium 1 gm/ Dextrose 55 ml @ 110 mls/hr Q24H IVPB 10/29/18 00:00 11/03/18 00:00 10/29/18 00:54 Docusate Sodium (Colace) 100 mg TWICE A DAY ORAL 10/28/18 09:00 11/26/18 17:59 Doxycycline Hyclate 100 mg/ Dextrose 110 ml @ 110 mls/hr Q12HR IV 10/28/18 09:00 11/03/18 08:59 10/29/18 09:26 Furosemide (Lasix) 40 mg BID IV 10/28/18 09:00 11/26/18 08:59 10/29/18 09:26 Heparin Sodium (Porcine) (Heparin 5000 units/ml) 5,000 units EVERY 12 HOURS SUBQ 10/28/18 09:00 11/26/18 08:59 Lisinopril (Zestril) 10 mg DAILY ORAL 10/28/18 09:00 11/27/18 08:59 Olanzapine (ZyPREXA Zydis) 20 mg DAILY ORAL 10/28/18 09:00 11/26/18 08:59 Pantoprazole (Protonix) 40 mg ACBREAKFAST ORAL 10/29/18 06:30 11/27/18 06:29 Spironolactone (Aldactone) 25 mg DAILY ORAL 10/28/18 09:00 11/27/18 08:59 Thiamine HCl (Vitamin B1) 100 mg DAILY ORAL 10/28/18 09:00 11/26/18 08:59 Geoffrey Velasquez MD Oct 29, 2018 13:00
--- NOTE | 2018-10-29 13:41 | GI Progress Note ---
Assessment/Plan Problems: (1) Abnormal LFTs ICD Codes: R94.5 - Abnormal results of liver function studies SNOMED: 847553475 (2) Pleural effusion ICD Codes: J90 - Pleural effusion, not elsewhere classified SNOMED: 76863411 Status: stable, unchanged Status Narrative Discussed with Dr. Natarajan. Assessment/Plan US reviewed >> Cholelithiasis. Gallbladder wall thickening. Negative for dilated bile ducts. Liver has normal echogenicity. drug screen negative Hepatitis panel negative symptomatic treatment fu pulm and cardiology recs bowel regime zofran prn ppi follow labs The patient was seen and examined at bedside and all new and available data was reviewed in the patients chart. I agree with the above findings, impression and plan. (Patient seen earlier today. Signature stamp does not reflect patient encounter time.). - Danny Natarajan MD Subjective Subjective refusing care Objective Last 24 Hour Vital Signs Date Time Temp Pulse Resp B/P (MAP) Pulse Ox O2 Delivery O2 Flow Rate FiO2 10/29/18 12:00 98.0 97 18 107/76 (86) 95 10/29/18 09:00 104/64 10/29/18 09:00 105 104/64 10/29/18 08:00 97.7 105 22 104/64 (77) 93 10/29/18 08:00 104 10/29/18 04:00 121 10/29/18 04:00 97.7 121 19 122/78 (93) 99 10/29/18 00:00 98.1 109 19 105/71 (82) 96 10/29/18 00:00 109 10/28/18 21:00 Nasal Cannula 2.0 10/28/18 20:59 116 120/66 10/28/18 20:00 97.2 110 20 120/66 (84) 96 10/28/18 20:00 110 10/28/18 16:00 Nasal Cannula 2.0 10/28/18 16:00 101 10/28/18 16:00 98.0 111 22 118/81 (93) 95 10/28/18 16:00 2.0 Intake and Output 10/28/18 10/29/18 18:59 06:59 Intake Total 410 ml Output Total 1000 ml Balance -1000 ml 410 ml Intake Oral 300 ml IV Total 110 ml Output Urine Total 1000 ml # Voids 6 4 # Bowel Movements 1 Laboratory Tests Test 10/29/18 05:49 White Blood Count 5.0 K/UL (4.8-10.8) Red Blood Count 4.63 M/UL (4.70-6.10) L Hemoglobin 14.1 G/DL (14.2-18.0) L Hematocrit 44.5 % (42.0-52.0) Mean Corpuscular Volume 96 FL (80-99) Mean Corpuscular Hemoglobin 30.4 PG (27.0-31.0) Mean Corpuscular Hemoglobin Concent 31.7 G/DL (32.0-36.0) L Red Cell Distribution Width 13.8 % (11.6-14.8) Platelet Count 165 K/UL (150-450) Mean Platelet Volume 7.9 FL (6.5-10.1) Neutrophils (%) (Auto) 55.0 % (45.0-75.0) Lymphocytes (%) (Auto) 28.4 % (20.0-45.0) Monocytes (%) (Auto) 11.9 % (1.0-10.0) H Eosinophils (%) (Auto) 3.8 % (0.0-3.0) H Basophils (%) (Auto) 0.9 % (0.0-2.0) Sodium Level 146 MMOL/L (136-145) H Potassium Level 3.6 MMOL/L (3.5-5.1) Chloride Level 106 MMOL/L (98-107) Carbon Dioxide Level 32 MMOL/L (21-32) Anion Gap 8 mmol/L (5-15) Blood Urea Nitrogen 26 mg/dL (7-18) H Creatinine 1.4 MG/DL (0.55-1.30) H Estimat Glomerular Filtration Rate 51.4 mL/min (>60) Glucose Level 99 MG/DL (74-106) Uric Acid 8.3 MG/DL (2.6-7.2) H Calcium Level 8.7 MG/DL (8.5-10.1) Phosphorus Level 4.1 MG/DL (2.5-4.9) Magnesium Level 1.9 MG/DL (1.8-2.4) Total Bilirubin 1.2 MG/DL (0.2-1.0) H Direct Bilirubin 0.4 MG/DL (0.0-0.3) H Gamma Glutamyl Transpeptidase 114 U/L (5-85) H Aspartate Amino Transf (AST/SGOT) 24 U/L (15-37) Alanine Aminotransferase (ALT/SGPT) 29 U/L (12-78) Alkaline Phosphatase 92 U/L (46-116) Total Protein 5.6 G/DL (6.4-8.2) L Albumin 2.5 G/DL (3.4-5.0) L Globulin 3.1 g/dL Albumin/Globulin Ratio 0.8 (1.0-2.7) L Height (Feet): 5 Height (Inches): 11.00 Weight (Pounds): 176 General Appearance: WD/WN, no apparent distress, alert Cardiovascular: normal rate Respiratory/Chest: normal breath sounds, no respiratory distress Abdominal Exam: normal bowel sounds, non tender, soft Extremities: normal range of motion, non-tender Betty Lovell NP Oct 29, 2018 13:41
--- NOTE | 2018-10-29 14:41 | Cardiac Electrophysiology PN ---
Assessment/Plan Assessment/Plan 1. Shortness of breath and severe lower extremity edema with elevated BNP of 18,000 due to congestive heart failure. Echocardiogram showed ejection fraction of only 20 Continue iv Lasix, Coreg, lisinopril, Aldactone. But has been very noncompliant and refusing po meds. Need cardiac catheterization for further evaluation of his coronaries. 2. Complete left bundle-branch block. Watch the patient on telemetry. 3. History of pleural effusion. The patient likely would need thoracentesis. 4. Schizophrenia, on Zyprexa ALYSIA RN Subjective Subjective Refusing PO. Getting only iv Meds. FU by psychiatry Objective Last 24 Hour Vital Signs Date Time Temp Pulse Resp B/P (MAP) Pulse Ox O2 Delivery O2 Flow Rate FiO2 10/29/18 12:00 102 10/29/18 12:00 98.0 97 18 107/76 (86) 95 10/29/18 09:00 104/64 10/29/18 09:00 105 104/64 10/29/18 08:00 97.7 105 22 104/64 (77) 93 10/29/18 08:00 104 10/29/18 04:00 121 10/29/18 04:00 97.7 121 19 122/78 (93) 99 10/29/18 00:00 98.1 109 19 105/71 (82) 96 10/29/18 00:00 109 10/28/18 21:00 Nasal Cannula 2.0 10/28/18 20:59 116 120/66 10/28/18 20:00 97.2 110 20 120/66 (84) 96 10/28/18 20:00 110 10/28/18 16:00 Nasal Cannula 2.0 10/28/18 16:00 101 10/28/18 16:00 98.0 111 22 118/81 (93) 95 10/28/18 16:00 2.0 Intake and Output 10/28/18 10/29/18 18:59 06:59 Intake Total 410 ml Output Total 1000 ml Balance -1000 ml 410 ml Intake Oral 300 ml IV Total 110 ml Output Urine Total 1000 ml # Voids 6 4 # Bowel Movements 1 Laboratory Tests Test 10/29/18 05:49 White Blood Count 5.0 K/UL (4.8-10.8) Red Blood Count 4.63 M/UL (4.70-6.10) L Hemoglobin 14.1 G/DL (14.2-18.0) L Hematocrit 44.5 % (42.0-52.0) Mean Corpuscular Volume 96 FL (80-99) Mean Corpuscular Hemoglobin 30.4 PG (27.0-31.0) Mean Corpuscular Hemoglobin Concent 31.7 G/DL (32.0-36.0) L Red Cell Distribution Width 13.8 % (11.6-14.8) Platelet Count 165 K/UL (150-450) Mean Platelet Volume 7.9 FL (6.5-10.1) Neutrophils (%) (Auto) 55.0 % (45.0-75.0) Lymphocytes (%) (Auto) 28.4 % (20.0-45.0) Monocytes (%) (Auto) 11.9 % (1.0-10.0) H Eosinophils (%) (Auto) 3.8 % (0.0-3.0) H Basophils (%) (Auto) 0.9 % (0.0-2.0) Sodium Level 146 MMOL/L (136-145) H Potassium Level 3.6 MMOL/L (3.5-5.1) Chloride Level 106 MMOL/L (98-107) Carbon Dioxide Level 32 MMOL/L (21-32) Anion Gap 8 mmol/L (5-15) Blood Urea Nitrogen 26 mg/dL (7-18) H Creatinine 1.4 MG/DL (0.55-1.30) H Estimat Glomerular Filtration Rate 51.4 mL/min (>60) Glucose Level 99 MG/DL (74-106) Uric Acid 8.3 MG/DL (2.6-7.2) H Calcium Level 8.7 MG/DL (8.5-10.1) Phosphorus Level 4.1 MG/DL (2.5-4.9) Magnesium Level 1.9 MG/DL (1.8-2.4) Total Bilirubin 1.2 MG/DL (0.2-1.0) H Direct Bilirubin 0.4 MG/DL (0.0-0.3) H Gamma Glutamyl Transpeptidase 114 U/L (5-85) H Aspartate Amino Transf (AST/SGOT) 24 U/L (15-37) Alanine Aminotransferase (ALT/SGPT) 29 U/L (12-78) Alkaline Phosphatase 92 U/L (46-116) Total Protein 5.6 G/DL (6.4-8.2) L Albumin 2.5 G/DL (3.4-5.0) L Globulin 3.1 g/dL Albumin/Globulin Ratio 0.8 (1.0-2.7) L Microbiology Date/Time Source Procedure Growth Status 10/27/18 14:00 Other Fluid Gram Stain - Final Resulted 10/27/18 14:00 Other Fluid Body Fluid Culture - Preliminary NO GROWTH AFTER 24 HOURS Resulted Objective HEAD AND NECK: Shows positive JVD. LUNGS: Decreased breath sounds. CARDIOVASCULAR: Regular S1 and S2 with no gallop. ABDOMEN: Soft. EXTREMITIES: 3+ pitting edema up to his thigh as well as scrotal edema. Teofilo Rollins MD Oct 29, 2018 14:41
--- NOTE | 2018-10-29 15:23 | NUR ---
ST NOTES: REFERRED FOR SWALLOW EVALUATION BY DR. ISAACS, SEE REPORT. ACUTE ISSUES: AMRIT/LUNG CONGESTION, RR 20 AND FI02 21%,? THYROID LEFTWARD TRACHEAL DEVIATION SUGGESTIVE OF RIGHT PARATRACHEAL MASS PROBABLY UNILATERALLY ENLARGED THYROID. (THYROID SONOGRAPHY REC BY RADIOLOGIST FOR FURTHER EVALUATION) DRY COUGH, ORTHROPNEA,WHEEZE 1 WEEK. 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 DENIES SWALLOWING PROBLEMS. HAS NEVER SEEN ENT. INITIAL IMPRESSIONS GROSSLY FUNCTIONAL SWALLOW WITH THIN LIQUIDS VIA CUP SEQUENTIAL SIPS, PUREED, AND MASTICATED SOLIDS W/O OVERT ASPIRATION AND GOOD INTAKE ON CURRENT SOFT CHEW AND THIN LIQUID DIET. POOR AND MISSING DENTITION (INCLUDES NO MOLARS). UNLIKELY SILENT ASPIRATION RISK. RECOMMENDATIONS: CONTINUE WITH CURRENT DIET/LIQUIDS CONSIDER ENT CONSULT REGARDING PARATRACHEAL MASS IF INDICATED PER MD AND WOULD BENEFIT FOR DENTAL CONSULT. WILL D/C FROM [facility] AT THIS TIME. D/W RN AND
--- NOTE | 2018-10-29 15:40 | NUR ---
RD ASSESSMENT & RECOMMENDATIONS SEE CARE ACTIVITY FOR COMPLETE ASSESSMENT DAILY ESTIMATED NEEDS: Needs based on CHF/ 80kg 25-30 kcals/kg 4389-6826 total kcals 1-1.2 g protein/kg 80-96 g total protein 20-22 mL/kg 3981-7139 total fluid mLs NUTRITION DIAGNOSIS: Altered nutrition related lab values R/T CHF, AMRIT, clinical condition as evidenced by elev BNP (05170), elev creat (1.4), elev T bili (1.2) CURRENT DIET:CARDIAC, soft easy chew PO DIET RECOMMENDATIONS: LOW NA/ texture as tolerated ADDITIONAL RECOMMENDATIONS: * Daily standing weight monitoring * Monitor lytes closely w/ lasix, replete as needed
[2018-10-29 16:00] VITALS: BP_SYST 108; BP_SYST 154; BP_DIAS 75; BP_DIAS 89
--- NOTE | 2018-10-29 19:25 | NUR ---
NURSE NOTES: Received pt and report from CINTHYA Jesus. Observed pt resting in bed with both eyes open and watching television. Pt is A/O x3. panel monitor is in placed, IV site intact, asymptomatic, and patent. Bed is in the lowest position and locked. Call light within reach. No signs/symptoms of acute distress noted at this time. Will continue plan of care.
--- NOTE | 2018-10-29 19:35 | NUR ---
HAND-OFF: Report given to Tyrese RN. Pt remains stable.
[2018-10-29 20:00] VITALS: BP 115/78
--- NOTE | 2018-10-29 22:31 | General Progress Note ---
Assessment/Plan Problem List: (1) Pericardial effusion ICD Codes: I31.3 - Pericardial effusion (noninflammatory) SNOMED: 814942042 (2) CHF (congestive heart failure) ICD Codes: I50.9 - Heart failure, unspecified SNOMED: 50204037 (3) Pleural effusion ICD Codes: J90 - Pleural effusion, not elsewhere classified SNOMED: 38701845 (4) Pneumonia ICD Codes: J18.9 - Pneumonia, unspecified organism SNOMED: 999841529 (5) AMRIT (acute kidney injury) ICD Codes: N17.9 - Acute kidney failure, unspecified SNOMED: 5870290, 24022644 (6) Abnormal LFTs ICD Codes: R94.5 - Abnormal results of liver function studies SNOMED: 534698975 Status: stable, unchanged Assessment/Plan: psychiatric pt? leg edema needs diuresis afebrile pleural effusion pna chf improving fluid overload refuses meds Subjective ROS Limited/Unobtainable: Yes Allergies: Coded Allergies: No Known Allergies (Unverified , 10/26/18) Objective Last 24 Hour Vital Signs Date Time Temp Pulse Resp B/P (MAP) Pulse Ox O2 Delivery O2 Flow Rate FiO2 10/29/18 21:16 107 115/78 10/29/18 20:00 96.8 107 19 115/78 (90) 100 10/29/18 16:00 97.6 75 18 108/75 (86) 96 10/29/18 16:00 102 10/29/18 12:00 102 10/29/18 12:00 98.0 97 18 107/76 (86) 95 10/29/18 09:00 104/64 10/29/18 09:00 105 104/64 10/29/18 08:00 97.7 105 22 104/64 (77) 93 10/29/18 08:00 104 10/29/18 04:00 121 10/29/18 04:00 97.7 121 19 122/78 (93) 99 10/29/18 00:00 98.1 109 19 105/71 (82) 96 10/29/18 00:00 109 Intake and Output 10/28/18 10/29/18 19:00 07:00 Intake Total 410 ml Output Total 1000 ml Balance -1000 ml 410 ml Intake Oral 300 ml IV Total 110 ml Output Urine Total 1000 ml # Voids 6 4 # Bowel Movements 1 Laboratory Tests 10/29/18 05:49: White Blood Count 5.0, Red Blood Count 4.63L, Hemoglobin 14.1L, Hematocrit 44.5 , Mean Corpuscular Volume 96, Mean Corpuscular Hemoglobin 30.4, Mean Corpuscular Hemoglobin Concent 31.7L, Red Cell Distribution Width 13.8, Platelet Count 165, Mean Platelet Volume 7.9, Neutrophils (%) (Auto) 55.0, Lymphocytes (%) (Auto) 28.4, Monocytes (%) (Auto) 11.9H, Eosinophils (%) (Auto) 3.8H, Basophils (%) (Auto) 0.9, Sodium Level 146H, Potassium Level 3.6, Chloride Level 106, Carbon Dioxide Level 32, Anion Gap 8, Blood Urea Nitrogen 26H, Creatinine 1.4H, Estimat Glomerular Filtration Rate 51.4, Glucose Level 99 , Uric Acid 8.3H, Calcium Level 8.7, Phosphorus Level 4.1, Magnesium Level 1.9, Total Bilirubin 1.2H, Direct Bilirubin 0.4H, Gamma Glutamyl Transpeptidase 114H , Aspartate Amino Transf (AST/SGOT) 24, Alanine Aminotransferase (ALT/SGPT) 29, Alkaline Phosphatase 92, Total Protein 5.6L, Albumin 2.5L, Globulin 3.1, Albumin /Globulin Ratio 0.8L Height (Feet): 5 Height (Inches): 11.00 Weight (Pounds): 176 Cardiovascular: normal rate Respiratory/Chest: rhonchi - bilaterally Abdomen: soft Cate Gonzales MD Oct 29, 2018 22:31
[2018-10-30] VITALS: BP 114/86
[2018-10-30 04:00] VITALS: BP 123/73
--- NOTE | 2018-10-30 07:25 | NUR ---
NURSE NOTES: Report received from Katina MENDES. Pt. AOx3. In RA. Standing at the bedside. Verbalized prefers standing and having breakfast while standing at this time. Denies any pain or SOB. Bed on lowest position, side rails upx2, brakes engaged. Call light within easy reach.
--- NOTE | 2018-10-30 07:54 | NUR ---
HAND-OFF: Report given to CINTHYA Adler.
[2018-10-30 08:00] VITALS: BP 114/68
[2018-10-30 08:09] LABS: BASOPHILS % (AUTO) 1.1 % (0.0-2.0); HEMATOCRIT 45.6 % (42.0-52.0); HEMOGLOBIN 14.7 G/DL (14.2-18.0); LYMPHOCYTES % (AUTO) 27.2 % (20.0-45.0); MEAN CORPUSCULAR VOLUME 95 FL (80-99); MONOCYTES % (AUTO) 11.7 % (1.0-10.0); PLATELET COUNT 169 K/UL (150-450); RED BLOOD COUNT 4.79 M/UL (4.70-6.10); RED CELL DISTRIBUTION WIDTH 14.1 % (11.6-14.8); WHITE BLOOD COUNT 5.4 K/UL (4.8-10.8)
[2018-10-30 08:20] LABS: ANION GAP 7 mmol/L (5-15); BLOOD UREA NITROGEN 27 mg/dL (7-18); CALCIUM 8.8 MG/DL (8.5-10.1); CARBON DIOXIDE 32 MMOL/L (21-32); CHLORIDE 105 MMOL/L (98-107); CREATININE 1.1 MG/DL (0.55-1.30); POTASSIUM 3.6 MMOL/L (3.5-5.1); SODIUM 144 MMOL/L (136-145)
--- NOTE | 2018-10-30 08:38 | Hematology/Onc Progress Note ---
Assessment/Plan Assessment/Plan # Elevated d-dimer on admission - have reviewed imaging, can be elevated in setting of acute exacerbation of chf, the nuclear v/q scan was negative --> v/q scan was indeterminate pe probability --> venous duplex negative --> unlikely indicator in this setting of vte even # Coagulopathy in the setting of fluid overload --> likely inr is elevated due to above --> periodically recheck inr/pt # Anemia of chronic disease --> likely chf related, multifactorial process --> trend as needed # Right sided Pulmonary Infiltrates s/o Pneumonia --> diuresis as per pulm --> very poor compliant --> is on abx ctx/doxy # Right pleural effusion --> thora prn # AMRIT (acute kidney injury) --> per renal # Small Pericardial effusion # Pna -- on abx as per id # noncompliance # Dvt ppx with heparin sq The timing of this note does not necessarily reflect the time of the patient was seen. Greatly appreciate consultation. Subjective Constitutional: Denies: no symptoms, chills, fever, malaise, weakness, other Cardiovascular: Denies: no symptoms, chest pain, edema, irregular heart rate, lightheadedness, palpitations, syncope, other Respiratory: Denies: no symptoms, cough, shortness of breath, SOB with excertion, SOB at rest, sputum, wheezing, other Gastrointestinal/Abdominal: Denies: no symptoms, abdomen distended, abdominal pain, black stools, tarry stools, blood in stool, constipated, diarrhea, difficulty swallowing, nausea, poor appetite, poor fluid intake, rectal bleeding , vomiting, other Genitourinary: Denies: no symptoms, burning, discharge, frequency, flank pain, hematuria, incontinence, pain, urgency, other Neurologic/Psychiatric: Denies: no symptoms, anxiety, depressed, emotional problems, headache, numbness, paresthesia, pre-existing deficit, seizure, tingling, tremors, weakness, other Endocrine: Denies: no symptoms, excessive sweating, flushing, intolerance to cold, intolerance to heat, increased hunger, increased thirst, increased urine, unexplained weight gain, unexplained weight loss, other Allergies: Coded Allergies: No Known Allergies (Unverified , 10/26/18) Subjective 10/29: no bleeding, no chills, cbc stable, d-dimer elevated before, sob better 10/30: no night sweats, labs have been reviewed, inr was alex, refusing meds Objective Objective Current Medications Medications (Trade) Dose Ordered Sig/Judah Route PRN Reason Start Time Stop Time Status Last Admin Dose Admin Carvedilol (Coreg) 3.125 mg EVERY 12 HOURS ORAL 10/28/18 09:00 11/26/18 20:59 10/29/18 21:16 Ceftriaxone Sodium 1 gm/ Dextrose 55 ml @ 110 mls/hr Q24H IVPB 10/29/18 00:00 11/03/18 00:00 10/29/18 23:20 Docusate Sodium (Colace) 100 mg TWICE A DAY ORAL 10/28/18 09:00 11/26/18 17:59 Doxycycline Hyclate 100 mg/ Dextrose 110 ml @ 110 mls/hr Q12HR IV 10/28/18 09:00 11/03/18 08:59 10/29/18 21:15 Furosemide (Lasix) 40 mg BID IV 10/28/18 09:00 11/26/18 08:59 10/29/18 17:46 Heparin Sodium (Porcine) (Heparin 5000 units/ml) 5,000 units EVERY 12 HOURS SUBQ 10/28/18 09:00 11/26/18 08:59 Lisinopril (Zestril) 10 mg DAILY ORAL 10/28/18 09:00 11/27/18 08:59 Olanzapine (ZyPREXA Zydis) 20 mg DAILY ORAL 10/28/18 09:00 11/26/18 08:59 Pantoprazole (Protonix) 40 mg ACBREAKFAST ORAL 10/29/18 06:30 11/27/18 06:29 Spironolactone (Aldactone) 25 mg DAILY ORAL 10/28/18 09:00 11/27/18 08:59 Thiamine HCl (Vitamin B1) 100 mg DAILY ORAL 10/28/18 09:00 11/26/18 08:59 Last 24 Hour Vital Signs Date Time Temp Pulse Resp B/P (MAP) Pulse Ox O2 Delivery O2 Flow Rate FiO2 10/30/18 04:00 118 10/30/18 04:00 97.1 102 20 123/73 (90) 99 10/30/18 00:00 116 10/30/18 00:00 97.2 108 20 114/86 (95) 99 9/6/19 21:16 107 115/78 10/29/18 20:00 102 10/29/18 20:00 96.8 107 19 115/78 (90) 100 10/29/18 16:00 97.6 75 18 108/75 (86) 96 10/29/18 16:00 102 10/29/18 12:00 102 10/29/18 12:00 98.0 97 18 107/76 (86) 95 10/29/18 09:00 104/64 10/29/18 09:00 105 104/64 10/29/18 08:00 97.7 105 22 104/64 (77) 93 10/29/18 08:00 104 10/29/18 04:00 121 10/29/18 04:00 97.7 121 19 122/78 (93) 99 10/29/18 00:00 98.1 109 19 105/71 (82) 96 10/29/18 00:00 109 10/28/18 21:00 Nasal Cannula 2.0 10/28/18 20:59 116 120/66 10/28/18 20:00 97.2 110 20 120/66 (84) 96 10/28/18 20:00 110 10/28/18 16:00 Nasal Cannula 2.0 10/28/18 16:00 101 10/28/18 16:00 98.0 111 22 118/81 (93) 95 10/28/18 16:00 2.0 10/28/18 12:00 97.9 116 22 113/79 (90) 94 10/28/18 12:00 Nasal Cannula 2.0 10/28/18 12:00 2.0 10/28/18 12:00 111 10/28/18 09:00 116/84 10/28/18 09:00 116 116/84 Intake and Output 10/29/18 10/30/18 19:00 07:00 Intake Total 480 ml 250 ml Output Total 200 ml Balance 480 ml 50 ml Intake Oral 480 ml 250 ml Output Urine Total 200 ml # Voids 2 1 Labs Test 10/27/18 10:15 10/27/18 13:00 10/27/18 13:10 10/27/18 14:00 White Blood Count 6.6 K/UL (4.8-10.8) Red Blood Count 4.96 M/UL (4.70-6.10) Hemoglobin 15.0 G/DL (14.2-18.0) Hematocrit 47.3 % (42.0-52.0) Mean Corpuscular Volume 95 FL (80-99) Mean Corpuscular Hemoglobin 30.2 PG (27.0-31.0) Mean Corpuscular Hemoglobin Concent 31.7 G/DL (32.0-36.0) Red Cell Distribution Width 14.3 % (11.6-14.8) Platelet Count 203 K/UL (150-450) Mean Platelet Volume 9.2 FL (6.5-10.1) Neutrophils (%) (Auto) 71.0 % (45.0-75.0) Lymphocytes (%) (Auto) 15.6 % (20.0-45.0) Monocytes (%) (Auto) 10.6 % (1.0-10.0) Eosinophils (%) (Auto) 1.5 % (0.0-3.0) Basophils (%) (Auto) 1.2 % (0.0-2.0) Sodium Level 145 MMOL/L (136-145) Potassium Level 4.0 MMOL/L (3.5-5.1) Chloride Level 109 MMOL/L (98-107) Carbon Dioxide Level 28 MMOL/L (21-32) Anion Gap 8 mmol/L (5-15) Blood Urea Nitrogen 26 mg/dL (7-18) Creatinine 1.2 MG/DL (0.55-1.30) 1.3 MG/DL (0.55-1.30) Estimat Glomerular Filtration Rate > 60 mL/min (>60) 55.9 mL/min (>60) Glucose Level 113 MG/DL (74-106) Hemoglobin A1c 6.0 % (4.3-6.0) Uric Acid 8.6 MG/DL (2.6-7.2) Calcium Level 8.6 MG/DL (8.5-10.1) Phosphorus Level 3.8 MG/DL (2.5-4.9) Magnesium Level 2.1 MG/DL (1.8-2.4) Total Bilirubin 1.5 MG/DL (0.2-1.0) Direct Bilirubin 0.6 MG/DL (0.0-0.3) Gamma Glutamyl Transpeptidase 116 U/L (5-85) Aspartate Amino Transf (AST/SGOT) 30 U/L (15-37) Alanine Aminotransferase (ALT/SGPT) 39 U/L (12-78) Alkaline Phosphatase 88 U/L (46-116) Ammonia 54 umol/L (11-32) Total Creatine Kinase 77 U/L (26-308) C-Reactive Protein, Quantitative 1.5 mg/dL (0.00-0.90) Pro-B-Type Natriuretic Peptide 39055 pg/mL (0-125) Total Protein 5.8 G/DL (6.4-8.2) Albumin 2.8 G/DL (3.4-5.0) Globulin 3.0 g/dL Albumin/Globulin Ratio 0.9 (1.0-2.7) Triglycerides Level 63 MG/DL (30-150) Cholesterol Level 104 MG/DL (< 200) LDL Cholesterol 57 mg/dL (<100) HDL Cholesterol 34 MG/DL (40-60) Cholesterol/HDL Ratio 3.1 (3.3-4.4) Vitamin B12 Level 1728 PG/ML (193-986) Folate 17.5 NG/ML (8.6-58.9) Thyroid Stimulating Hormone (TSH) 1.976 uiU/mL (0.358-3.740) Urine Collection Time 24 HRS Urine Total Volume 3500 ML Urine Creatinine 14 MG/DL Urine Creatinine 24 Hour 490 mg/24hr (2719-8944) Patient Height Inches (Creat Clear) 71 INCHES Patient Weight Pounds (Creat Clear) 191 LBS Creatinine Clearance 22 mL/min (71-151) Urine Total Protein mg/dL 11 mg/dL Urine Total Protein 24 Hour 10.7 mg/24hr (< 150) D-Dimer 2.77 mg/L FEU (0.00-0.49) Body Fluid Source R thoracentesis Body Fluid Volume 24 mL Body Fluid Appearance Hazy (Clear) Body Fluid RBC 1344 /CUMM Body Fluid Total Nucleated Cells 104 /CUMM Body Fluid Polynuclear WBCs (%) 23 % Body Fluid Mononuclear WBCs (%) 65 % Body Fluid Mesothelial Cells (%) 12 % Body Fluid Total Protein 1.2 g/dL (.) Body Fluid Lactate Dehydrogenase 57 IU/L (.) Urine Opiates Screen Negative (NEGATIVE) Urine Barbiturates Screen Negative (NEGATIVE) Phencyclidine (PCP) Screen Negative (NEGATIVE) Urine Amphetamines Screen Negative (NEGATIVE) Urine Benzodiazepines Screen Negative (NEGATIVE) Urine Cocaine Screen Negative (NEGATIVE) Urine Marijuana (THC) Screen Negative (NEGATIVE) Test 10/28/18 03:50 10/29/18 05:49 10/30/18 06:55 White Blood Count 5.2 K/UL (4.8-10.8) 5.0 K/UL (4.8-10.8) 5.4 K/UL (4.8-10.8) Red Blood Count 4.70 M/UL (4.70-6.10) 4.63 M/UL (4.70-6.10) 4.79 M/UL (4.70-6.10) Hemoglobin 14.4 G/DL (14.2-18.0) 14.1 G/DL (14.2-18.0) 14.7 G/DL (14.2-18.0) Hematocrit 44.8 % (42.0-52.0) 44.5 % (42.0-52.0) 45.6 % (42.0-52.0) Mean Corpuscular Volume 95 FL (80-99) 96 FL (80-99) 95 FL (80-99) Mean Corpuscular Hemoglobin 30.7 PG (27.0-31.0) 30.4 PG (27.0-31.0) 30.7 PG (27.0-31.0) Mean Corpuscular Hemoglobin Concent 32.2 G/DL (32.0-36.0) 31.7 G/DL (32.0-36.0) 32.3 G/DL (32.0-36.0) Red Cell Distribution Width 14.3 % (11.6-14.8) 13.8 % (11.6-14.8) 14.1 % (11.6-14.8) Platelet Count 178 K/UL (150-450) 165 K/UL (150-450) 169 K/UL (150-450) Mean Platelet Volume 9.1 FL (6.5-10.1) 7.9 FL (6.5-10.1) 8.2 FL (6.5-10.1) Neutrophils (%) (Auto) 61.8 % (45.0-75.0) 55.0 % (45.0-75.0) 57.0 % (45.0-75.0) Lymphocytes (%) (Auto) 22.8 % (20.0-45.0) 28.4 % (20.0-45.0) 27.2 % (20.0-45.0) Monocytes (%) (Auto) 9.9 % (1.0-10.0) 11.9 % (1.0-10.0) 11.7 % (1.0-10.0) Eosinophils (%) (Auto) 4.2 % (0.0-3.0) 3.8 % (0.0-3.0) 3.0 % (0.0-3.0) Basophils (%) (Auto) 1.3 % (0.0-2.0) 0.9 % (0.0-2.0) 1.1 % (0.0-2.0) Sodium Level 146 MMOL/L (136-145) 146 MMOL/L (136-145) 144 MMOL/L (136-145) Potassium Level 4.2 MMOL/L (3.5-5.1) 3.6 MMOL/L (3.5-5.1) 3.6 MMOL/L (3.5-5.1) Chloride Level 110 MMOL/L (98-107) 106 MMOL/L (98-107) 105 MMOL/L (98-107) Carbon Dioxide Level 31 MMOL/L (21-32) 32 MMOL/L (21-32) 32 MMOL/L (21-32) Anion Gap 5 mmol/L (5-15) 8 mmol/L (5-15) 7 mmol/L (5-15) Blood Urea Nitrogen 25 mg/dL (7-18) 26 mg/dL (7-18) 27 mg/dL (7-18) Creatinine 1.1 MG/DL (0.55-1.30) 1.4 MG/DL (0.55-1.30) 1.1 MG/DL (0.55-1.30) Estimat Glomerular Filtration Rate > 60 mL/min (>60) 51.4 mL/min (>60) > 60 mL/min (>60) Glucose Level 86 MG/DL (74-106) 99 MG/DL (74-106) 100 MG/DL (74-106) Uric Acid 9.0 MG/DL (2.6-7.2) 8.3 MG/DL (2.6-7.2) Calcium Level 8.8 MG/DL (8.5-10.1) 8.7 MG/DL (8.5-10.1) 8.8 MG/DL (8.5-10.1) Phosphorus Level 4.1 MG/DL (2.5-4.9) 4.1 MG/DL (2.5-4.9) Magnesium Level 2.0 MG/DL (1.8-2.4) 1.9 MG/DL (1.8-2.4) Total Bilirubin 1.8 MG/DL (0.2-1.0) 1.2 MG/DL (0.2-1.0) Direct Bilirubin 0.6 MG/DL (0.0-0.3) 0.4 MG/DL (0.0-0.3) Aspartate Amino Transf (AST/SGOT) 27 U/L (15-37) 24 U/L (15-37) Alanine Aminotransferase (ALT/SGPT) 35 U/L (12-78) 29 U/L (12-78) Alkaline Phosphatase 84 U/L (46-116) 92 U/L (46-116) Lactate Dehydrogenase 209 U/L (81-234) Troponin I 0.037 ng/mL (0.000-0.056) C-Reactive Protein, Quantitative 1.7 mg/dL (0.00-0.90) Pro-B-Type Natriuretic Peptide 41879 pg/mL (0-125) Total Protein 5.1 G/DL (6.4-8.2) 5.6 G/DL (6.4-8.2) Albumin 2.6 G/DL (3.4-5.0) 2.5 G/DL (3.4-5.0) Globulin 2.5 g/dL 3.1 g/dL Albumin/Globulin Ratio 1.0 (1.0-2.7) 0.8 (1.0-2.7) Carcinoembryonic Antigen 2.2 ng/mL (0.0-4.7) Thyroid Stimulating Hormone (TSH) 3.038 uiU/mL (0.358-3.740) Free Thyroxine 1.06 NG/DL (0.76-1.46) Hepatitis A IgM Antibody Negative (Negative) Hepatitis B Surface Antigen Negative (Negative) Hepatitis B Core IgM Antibody Negative (Negative) Hepatitis C Antibody <0.1 s/co ratio Gamma Glutamyl Transpeptidase 114 U/L (5-85) Height (Feet): 5 Height (Inches): 11.00 Weight (Pounds): 172 Objective Vitals: reviewed General Appearance: NAD HEENT: normocephalic, atraumatic Neck: non-tender, normal alignment Respiratory/Chest: ++ bilateral crackles noted on exam Cardiovascular/Chest: normal peripheral pulses, normal rate Abdomen: normal bowel sounds, soft Ext: 2+ edema lower ext noted Duncan Pereira MD Oct 30, 2018 08:38
[2018-10-30] MEDS: Lisinopril 10mg tab ORAL SCH (09:00)
[2018-10-30] MEDS: ZyPREXA Zydis 10mg tab ORAL SCH ×2 (09:00→16:48)
[2018-10-30] MEDS: Spironolactone 25mg tab ORAL SCH (09:00)
[2018-10-30] MEDS: Docusate 100mg cap ORAL SCH ×2 (09:00→17:44)
[2018-10-30] MEDS: Heparin 5000 units/ml inj SUBQ SCH ×2 (09:00→21:00)
[2018-10-30] MEDS: Thiamine 100mg tab ORAL SCH (09:00)
[2018-10-30] MEDS: Doxycycline Hyclate 100 MG in D5W 110 ML IV SCH ×2 (09:16→21:08)
--- NOTE | 2018-10-30 10:41 | General Progress Note ---
Assessment/Plan Problem List: (1) Testicular pain ICD Codes: N50.819 - Testicular pain, unspecified SNOMED: 25861249 (2) CHF (congestive heart failure) ICD Codes: I50.9 - Heart failure, unspecified SNOMED: 99218279 (3) Pericardial effusion ICD Codes: I31.3 - Pericardial effusion (noninflammatory) SNOMED: 595784067 (4) Pleural effusion ICD Codes: J90 - Pleural effusion, not elsewhere classified SNOMED: 08314046 (5) Pneumonia ICD Codes: J18.9 - Pneumonia, unspecified organism SNOMED: 142491584 (6) AMRIT (acute kidney injury) ICD Codes: N17.9 - Acute kidney failure, unspecified SNOMED: 8119733, 96839938 (7) Abnormal LFTs ICD Codes: R94.5 - Abnormal results of liver function studies SNOMED: 580184942 (8) Cardiorenal syndrome ICD Codes: I13.10 - Hypertensive heart and chronic kidney disease without heart failure, with stage 1 through stage 4 chronic kidney disease, or unspecified chronic kidney disease SNOMED: 147396709 Status: stable, unchanged Assessment/Plan: pt diet pain control cbc bmp am Subjective Constitutional: Reports: weakness Allergies: Coded Allergies: No Known Allergies (Unverified , 10/26/18) All Systems: reviewed and negative except above Subjective sleepy in bed Objective Last 24 Hour Vital Signs Date Time Temp Pulse Resp B/P (MAP) Pulse Ox O2 Delivery O2 Flow Rate FiO2 10/30/18 09:00 114/68 10/30/18 09:00 107 114/68 10/30/18 08:00 97.5 107 20 114/68 (83) 95 10/30/18 08:00 110 10/30/18 04:00 118 10/30/18 04:00 97.1 102 20 123/73 (90) 99 10/30/18 00:00 116 10/30/18 00:00 97.2 108 20 114/86 (95) 99 10/29/18 21:16 107 115/78 10/29/18 20:00 102 10/29/18 20:00 96.8 107 19 115/78 (90) 100 10/29/18 16:00 97.6 75 18 108/75 (86) 96 10/29/18 16:00 102 10/29/18 12:00 102 10/29/18 12:00 98.0 97 18 107/76 (86) 95 Intake and Output 10/29/18 10/30/18 19:00 07:00 Intake Total 480 ml 250 ml Output Total 200 ml Balance 480 ml 50 ml Intake Oral 480 ml 250 ml Output Urine Total 200 ml # Voids 2 1 Laboratory Tests 10/30/18 06:55: White Blood Count 5.4, Red Blood Count 4.79, Hemoglobin 14.7, Hematocrit 45.6, Mean Corpuscular Volume 95, Mean Corpuscular Hemoglobin 30.7, Mean Corpuscular Hemoglobin Concent 32.3, Red Cell Distribution Width 14.1, Platelet Count 169, Mean Platelet Volume 8.2, Neutrophils (%) (Auto) 57.0, Lymphocytes (%) (Auto) 27.2, Monocytes (%) (Auto) 11.7H, Eosinophils (%) (Auto) 3.0, Basophils (%) ( Auto) 1.1, Sodium Level 144, Potassium Level 3.6, Chloride Level 105, Carbon Dioxide Level 32, Anion Gap 7, Blood Urea Nitrogen 27H, Creatinine 1.1, Estimat Glomerular Filtration Rate > 60, Glucose Level 100, Calcium Level 8.8 Height (Feet): 5 Height (Inches): 11.00 Weight (Pounds): 172 General Appearance: lethargic EENT: normal ENT inspection Neck: normal alignment Cardiovascular: normal peripheral pulses, normal rate, regular rhythm Respiratory/Chest: chest wall non-tender, lungs clear, normal breath sounds Abdomen: normal bowel sounds, soft, no organomegaly Neurologic: motor weakness Skin: normal pigmentation, warm/dry Js Ca DO Oct 30, 2018 10:41
[2018-10-30 12:00] VITALS: BP 119/79
--- NOTE | 2018-10-30 12:06 | Nephrology Progress Note ---
Assessment/Plan Status: stable, unchanged Assessment/Plan: A/P 1) AMRIT- CRS, resolved, cr 1.1. Out patient proteinuria evaluation -24 H urine CrCl and Total Protein pending 2) Anasarca: likely cardiac and cardiomyopathy - continue lasix 3) h/o Schizophrenia Psych consult per PMD ( schizophrenia history- uncoaporative) echo: Mild left ventricular enlargement . Global left ventricular hypokinesis with anteroseptal dyskinesis ,ischemic cardiomyopathy can not be excluded . Left ventricular ejection fraction estimated to be 20-25%. Subjective Date patient seen: Oct 30, 2018 Time patient seen: 12:04 ROS Limited/Unobtainable: No Allergies: Coded Allergies: No Known Allergies (Unverified , 10/26/18) Subjective Patient up in bed in no overt distress Objective Last 24 Hour Vital Signs Date Time Temp Pulse Resp B/P (MAP) Pulse Ox O2 Delivery O2 Flow Rate FiO2 10/30/18 09:00 114/68 10/30/18 09:00 107 114/68 10/30/18 08:00 97.5 107 20 114/68 (83) 95 10/30/18 08:00 110 10/30/18 04:00 118 10/30/18 04:00 97.1 102 20 123/73 (90) 99 10/30/18 00:00 116 10/30/18 00:00 97.2 108 20 114/86 (95) 99 10/29/18 21:16 107 115/78 10/29/18 20:00 102 10/29/18 20:00 96.8 107 19 115/78 (90) 100 10/29/18 16:00 97.6 75 18 108/75 (86) 96 10/29/18 16:00 102 Intake and Output 10/29/18 10/30/18 19:00 07:00 Intake Total 480 ml 250 ml Output Total 200 ml Balance 480 ml 50 ml Intake Oral 480 ml 250 ml Output Urine Total 200 ml # Voids 2 1 Laboratory Tests 10/30/18 06:55: White Blood Count 5.4, Red Blood Count 4.79, Hemoglobin 14.7, Hematocrit 45.6, Mean Corpuscular Volume 95, Mean Corpuscular Hemoglobin 30.7, Mean Corpuscular Hemoglobin Concent 32.3, Red Cell Distribution Width 14.1, Platelet Count 169, Mean Platelet Volume 8.2, Neutrophils (%) (Auto) 57.0, Lymphocytes (%) (Auto) 27.2, Monocytes (%) (Auto) 11.7H, Eosinophils (%) (Auto) 3.0, Basophils (%) ( Auto) 1.1, Sodium Level 144, Potassium Level 3.6, Chloride Level 105, Carbon Dioxide Level 32, Anion Gap 7, Blood Urea Nitrogen 27H, Creatinine 1.1, Estimat Glomerular Filtration Rate > 60, Glucose Level 100, Calcium Level 8.8 Height (Feet): 5 Height (Inches): 11.00 Weight (Pounds): 172 General Appearance: no apparent distress, alert EENT: normal ENT inspection Neck: normal alignment, supple Cardiovascular: normal rate, regular rhythm Respiratory/Chest: rhonchi - bilaterally Abdomen: non tender, soft Edema: 1+ Arm (L), 1+ Arm (R), 1+ Leg (L), 1+ Leg (R), 1+ Pedal (L), 1+ Pedal ( R), 1+ Generalized Dev Gamez MD Oct 30, 2018 12:06
--- NOTE | 2018-10-30 14:21 | Cardiac Electrophysiology PN ---
Assessment/Plan Assessment/Plan 1. Shortness of breath and severe lower extremity edema with elevated BNP of 18, 000 due to congestive heart failure. Echocardiogram showed ejection fraction of only 20 % Continue iv Lasix, Coreg, lisinopril, Aldactone. But has been very noncompliant and refusing po meds. Need cardiac catheterization for further evaluation of his coronaries. 2. Complete left bundle-branch block. Watch the patient on telemetry. 3. History of pleural effusion. The patient likely would need thoracentesis. 4. Schizophrenia, on Zyprexa ALYSIA RN Subjective Subjective Refusing PO or iv Meds. FU by psychiatry but refusing psych meds also Objective Last 24 Hour Vital Signs Date Time Temp Pulse Resp B/P (MAP) Pulse Ox O2 Delivery O2 Flow Rate FiO2 10/30/18 12:00 113 10/30/18 12:00 97.5 118 20 119/79 (92) 95 10/30/18 09:00 114/68 10/30/18 09:00 107 114/68 10/30/18 08:00 97.5 107 20 114/68 (83) 95 10/30/18 08:00 110 10/30/18 04:00 118 10/30/18 04:00 97.1 102 20 123/73 (90) 99 10/30/18 00:00 116 10/30/18 00:00 97.2 108 20 114/86 (95) 99 10/29/18 21:16 107 115/78 10/29/18 20:00 102 10/29/18 20:00 96.8 107 19 115/78 (90) 100 10/29/18 16:00 97.6 75 18 108/75 (86) 96 10/29/18 16:00 102 Intake and Output 10/29/18 10/30/18 18:59 06:59 Intake Total 480 ml 250 ml Output Total 200 ml Balance 480 ml 50 ml Intake Oral 480 ml 250 ml Output Urine Total 200 ml # Voids 2 1 Laboratory Tests Test 10/30/18 06:55 White Blood Count 5.4 K/UL (4.8-10.8) Red Blood Count 4.79 M/UL (4.70-6.10) Hemoglobin 14.7 G/DL (14.2-18.0) Hematocrit 45.6 % (42.0-52.0) Mean Corpuscular Volume 95 FL (80-99) Mean Corpuscular Hemoglobin 30.7 PG (27.0-31.0) Mean Corpuscular Hemoglobin Concent 32.3 G/DL (32.0-36.0) Red Cell Distribution Width 14.1 % (11.6-14.8) Platelet Count 169 K/UL (150-450) Mean Platelet Volume 8.2 FL (6.5-10.1) Neutrophils (%) (Auto) 57.0 % (45.0-75.0) Lymphocytes (%) (Auto) 27.2 % (20.0-45.0) Monocytes (%) (Auto) 11.7 % (1.0-10.0) H Eosinophils (%) (Auto) 3.0 % (0.0-3.0) Basophils (%) (Auto) 1.1 % (0.0-2.0) Sodium Level 144 MMOL/L (136-145) Potassium Level 3.6 MMOL/L (3.5-5.1) Chloride Level 105 MMOL/L (98-107) Carbon Dioxide Level 32 MMOL/L (21-32) Anion Gap 7 mmol/L (5-15) Blood Urea Nitrogen 27 mg/dL (7-18) H Creatinine 1.1 MG/DL (0.55-1.30) Estimat Glomerular Filtration Rate > 60 mL/min (>60) Glucose Level 100 MG/DL (74-106) Calcium Level 8.8 MG/DL (8.5-10.1) Objective HEAD AND NECK: Shows positive JVD. LUNGS: Decreased breath sounds. CARDIOVASCULAR: Regular S1 and S2 with no gallop. ABDOMEN: Soft. EXTREMITIES: 3+ pitting edema up to his thigh as well as scrotal edema. Teofilo Rollins MD Oct 30, 2018 14:21
[2018-10-30] MEDS ORDERED: NS 275ml ONE (14:30)
--- NOTE | 2018-10-30 14:47 | General Progress Note ---
Assessment/Plan Status: stable, unchanged Assessment/Plan: Assessment (1) Abnormal LFTs ICD Codes: R94.5 - Abnormal results of liver function studies SNOMED: 081657083 (2) Pleural effusion ICD Codes: J90 - Pleural effusion, not elsewhere classified SNOMED: 60191397 Status: stable, unchanged Assessment/Plan US reviewed >> Cholelithiasis. Gallbladder wall thickening. Negative for dilated bile ducts. Liver has normal echogenicity. drug screen negative Hepatitis panel negative symptomatic treatment fu pulm and cardiology recs bowel regime zofran prn ppi follow labs Subjective Allergies: Coded Allergies: No Known Allergies (Unverified , 10/26/18) Subjective feels OK no abd pain tolerating PO (+) BM yesterday Objective Last 24 Hour Vital Signs Date Time Temp Pulse Resp B/P (MAP) Pulse Ox O2 Delivery O2 Flow Rate FiO2 10/30/18 12:00 113 10/30/18 12:00 97.5 118 20 119/79 (92) 95 10/30/18 09:00 114/68 10/30/18 09:00 107 114/68 10/30/18 08:00 97.5 107 20 114/68 (83) 95 10/30/18 08:00 110 10/30/18 04:00 118 10/30/18 04:00 97.1 102 20 123/73 (90) 99 10/30/18 00:00 116 10/30/18 00:00 97.2 108 20 114/86 (95) 99 10/29/18 21:16 107 115/78 10/29/18 20:00 102 10/29/18 20:00 96.8 107 19 115/78 (90) 100 10/29/18 16:00 97.6 75 18 108/75 (86) 96 10/29/18 16:00 102 Intake and Output 10/29/18 10/30/18 18:59 06:59 Intake Total 480 ml 250 ml Output Total 200 ml Balance 480 ml 50 ml Intake Oral 480 ml 250 ml Output Urine Total 200 ml # Voids 2 1 Laboratory Tests 10/30/18 06:55: White Blood Count 5.4, Red Blood Count 4.79, Hemoglobin 14.7, Hematocrit 45.6, Mean Corpuscular Volume 95, Mean Corpuscular Hemoglobin 30.7, Mean Corpuscular Hemoglobin Concent 32.3, Red Cell Distribution Width 14.1, Platelet Count 169, Mean Platelet Volume 8.2, Neutrophils (%) (Auto) 57.0, Lymphocytes (%) (Auto) 27.2, Monocytes (%) (Auto) 11.7H, Eosinophils (%) (Auto) 3.0, Basophils (%) ( Auto) 1.1, Sodium Level 144, Potassium Level 3.6, Chloride Level 105, Carbon Dioxide Level 32, Anion Gap 7, Blood Urea Nitrogen 27H, Creatinine 1.1, Estimat Glomerular Filtration Rate > 60, Glucose Level 100, Calcium Level 8.8 Height (Feet): 5 Height (Inches): 11.00 Weight (Pounds): 172 Objective Debilitated WM NCAT supple CTA RR abd soft , distended, NT (+) edema Chetan Plunkett MD Oct 30, 2018 14:47
--- NOTE | 2018-10-30 14:48 | Pulmonology Progress Note ---
Assessment/Plan Assessment/Plan Pulmonary Progress Note HPI Patient is a 63-year old man with admitted with shortness of breath, lower extremity and scrotal edema/pain. Denies cough, no chest pain. Noted to have features of CHF right lower lobe infiltrate/effusion. Symptoms is been present for at least a week. He notes worsening exertional dyspnea, diffuse swelling, has some pain with urination. Denies any medical history including heart disease, CHF, COPD. He does smoke and states he quit 1 week ago. Denies alcohol use. Denies any recent fevers, chills, vomiting, diarrhea. No new complaints PMH: Schizophrenia Allergies: NKDA Social Hx: Uses tobacco. Denies drugs or alcohol All Other Systems: negative except mentioned in HPI Physical Exam Vital Signs Noted General: Awake and alert, note distressed on oxygen HEENT: NCAT. EOMI. Neck: Supple, No LN Chest Wall: No tenderness, no deformity Cardiovascular: Tachycardic. RRR. S1 and S2 normal. No murmur noted. Resp: Basal crackles bilaterally. No wheezing. Reduced right basal BS Abdomen: Abdomen is distended. Nontender to palpation. Diffuse anasarca Skin: Diffuse anasarca over the entire abdomen and over the lower extremities bilaterally. Testicular enlargement. MSK: Normal tone and bulk. Moving all extremities. No obvious deformity. Neuro: Awake and alert. No focal signs. Bedside Echo in ED: Findings include cardiomegaly, trace pericardial effusion without significant right ventricle or right atrial collapse. Left ventricle appears somewhat enlarged. Impression: Congestive Heart Failure Right sided Pulmonary Infiltrates s/o Pneumonia Right pleural effusion AMRIT (acute kidney injury) Small Pericardial effusion Plan: Diurese PRN Ceftraixone/Doxycycline Monitor labs PPX O2 PRN Thor[address] evaluation R/O DVT Laboratory Tests Noted EKG: Rate: tachycardiac Rhythm: NSR, Sinus tachycardia rate 115 bpm, prolonged QTC at 522 ms, normal axis. Low voltage in the limb leads and left bundle branch block pattern in the precordial leads. Chest X-Ray: Cardiomegaly, bilateral congestion, RLL effusion, questionable infiltrate in the right lower lobe Subjective ROS Limited/Unobtainable: No Allergies: Coded Allergies: No Known Allergies (Unverified , 10/26/18) Objective Last 24 Hour Vital Signs Date Time Temp Pulse Resp B/P (MAP) Pulse Ox O2 Delivery O2 Flow Rate FiO2 9/7/19 12:00 113 10/30/18 12:00 97.5 118 20 119/79 (92) 95 10/30/18 09:00 114/68 10/30/18 09:00 107 114/68 10/30/18 08:00 97.5 107 20 114/68 (83) 95 10/30/18 08:00 110 10/30/18 04:00 118 10/30/18 04:00 97.1 102 20 123/73 (90) 99 10/30/18 00:00 116 10/30/18 00:00 97.2 108 20 114/86 (95) 99 10/29/18 21:16 107 115/78 10/29/18 20:00 102 10/29/18 20:00 96.8 107 19 115/78 (90) 100 10/29/18 16:00 97.6 75 18 108/75 (86) 96 10/29/18 16:00 102 Intake and Output 10/29/18 10/30/18 18:59 06:59 Intake Total 480 ml 250 ml Output Total 200 ml Balance 480 ml 50 ml Intake Oral 480 ml 250 ml Output Urine Total 200 ml # Voids 2 1 Laboratory Tests 10/30/18 06:55: White Blood Count 5.4, Red Blood Count 4.79, Hemoglobin 14.7, Hematocrit 45.6, Mean Corpuscular Volume 95, Mean Corpuscular Hemoglobin 30.7, Mean Corpuscular Hemoglobin Concent 32.3, Red Cell Distribution Width 14.1, Platelet Count 169, Mean Platelet Volume 8.2, Neutrophils (%) (Auto) 57.0, Lymphocytes (%) (Auto) 27.2, Monocytes (%) (Auto) 11.7H, Eosinophils (%) (Auto) 3.0, Basophils (%) ( Auto) 1.1, Sodium Level 144, Potassium Level 3.6, Chloride Level 105, Carbon Dioxide Level 32, Anion Gap 7, Blood Urea Nitrogen 27H, Creatinine 1.1, Estimat Glomerular Filtration Rate > 60, Glucose Level 100, Calcium Level 8.8 Current Medications Medications (Trade) Dose Ordered Sig/Judah Route PRN Reason Start Time Stop Time Status Last Admin Dose Admin Carvedilol (Coreg) 3.125 mg EVERY 12 HOURS ORAL 10/28/18 09:00 11/26/18 20:59 10/29/18 21:16 Ceftriaxone Sodium 1 gm/ Dextrose 55 ml @ 110 mls/hr Q24H IVPB 10/29/18 00:00 11/03/18 00:00 10/29/18 23:20 Docusate Sodium (Colace) 100 mg TWICE A DAY ORAL 10/28/18 09:00 11/26/18 17:59 Doxycycline Hyclate 100 mg/ Dextrose 110 ml @ 110 mls/hr Q12HR IV 10/28/18 09:00 11/03/18 08:59 10/30/18 09:16 Furosemide (Lasix) 40 mg BID IV 10/28/18 09:00 11/26/18 08:59 10/30/18 09:54 Heparin Sodium (Porcine) (Heparin 5000 units/ml) 5,000 units EVERY 12 HOURS SUBQ 10/28/18 09:00 11/26/18 08:59 Lisinopril (Zestril) 10 mg DAILY ORAL 10/28/18 09:00 11/27/18 08:59 Olanzapine (ZyPREXA Zydis) 20 mg DAILY ORAL 10/28/18 09:00 11/26/18 08:59 Pantoprazole (Protonix) 40 mg ACBREAKFAST ORAL 10/29/18 06:30 11/27/18 06:29 Spironolactone (Aldactone) 25 mg DAILY ORAL 10/28/18 09:00 11/27/18 08:59 Thiamine HCl (Vitamin B1) 100 mg DAILY ORAL 10/28/18 09:00 11/26/18 08:59 Lexa El MD Oct 30, 2018 14:48
[2018-10-30 16:00] VITALS: BP 104/77
--- NOTE | 2018-10-30 17:20 | NUR ---
NURSE NOTES: Communicated Patient's refusal to medications with family/friend (Ms Quinones). Per family and Pt. he used to taking hzyprexa in the evening. medication time adjusted after consulting with pharmacy. Pt. took medication. For any medication concerns to call Ms Quinones. Information on white board for better communication.
--- NOTE | 2018-10-30 19:25 | NUR ---
NURSE NOTES: Received pt and report from CINTHYA Adler. Observed pt resting in bed with both eyes open and watching television. security monitor is in placed, IV site intact, asymptomatic and patent. Bed is in the lowest position and locked. Call light within reach. No signs/symptoms of acute distress noted at this time. Will continue plan of care.
--- NOTE | 2018-10-30 19:35 | NUR ---
HAND-OFF: Report given to CINTHYA Ambriz. Pt. in stable condition. Plan of care communicated.
[2018-10-30 20:00] VITALS: BP 121/72
--- NOTE | 2018-10-30 22:41 | NUR ---
NURSE NOTES: Contacted Dr. Rollins regarding pt's HR of 140 bpm. Current BP is 125/89. EKG tracing completed. Awaiting call back.
[2018-10-31] VITALS: BP 115/74
[2018-10-31] MEDS: cefTRIAXone 1 GM in D5W 55 ML IVPB SCH (00:08)
[2018-10-31 04:00] VITALS: BP 114/76
[2018-10-31 07:06] LABS: BASOPHILS % (AUTO) 1.7 % (0.0-2.0); EOSINOPHILS % (AUTO) 2.2 % (0.0-3.0); HEMATOCRIT 49.1 % (42.0-52.0); HEMOGLOBIN 15.6 G/DL (14.2-18.0); LYMPHOCYTES % (AUTO) 27.1 % (20.0-45.0); MEAN CORPUSCULAR VOLUME 95 FL (80-99); MONOCYTES % (AUTO) 11.3 % (1.0-10.0); NEUTROPHILS % (AUTO) 57.8 % (45.0-75.0); PLATELET COUNT 176 K/UL (150-450); RED BLOOD COUNT 5.19 M/UL (4.70-6.10); WHITE BLOOD COUNT 5.7 K/UL (4.8-10.8)
[2018-10-31 07:11] LABS: ANION GAP 4 mmol/L (5-15); BLOOD UREA NITROGEN 22 mg/dL (7-18); CARBON DIOXIDE 34 MMOL/L (21-32); CHLORIDE 106 MMOL/L (98-107); CREATININE 1.3 MG/DL (0.55-1.30); POTASSIUM 3.7 MMOL/L (3.5-5.1); SODIUM 144 MMOL/L (136-145)
--- NOTE | 2018-10-31 07:31 | NUR ---
NURSE NOTES: Report received from CINTHYA Ambriz. Pt. AOx4. Standing at the side of bed and rearranging things on the table. Denies any pain or SOB. Agrees to take all his medications today. R H 20g IV, site intact, flushed and SL. Bed sheet changed. Bed on lowest position, side rails upx2, brakes engaged. Call light within easy reach.
--- NOTE | 2018-10-31 07:44 | NUR ---
HAND-OFF: Report given to CINTHYA Adler.
[2018-10-31 08:00] VITALS: BP 106/63
[2018-10-31] MEDS: Doxycycline Hyclate 100 MG in D5W 110 ML IV SCH ×2 (08:42→20:47)
[2018-10-31] MEDS: Docusate 100mg cap ORAL SCH ×2 (08:43→17:27)
[2018-10-31] MEDS: Thiamine 100mg tab ORAL SCH (08:43)
[2018-10-31] MEDS: Lisinopril 10mg tab ORAL SCH (08:44)
[2018-10-31] MEDS: Heparin 5000 units/ml inj SUBQ SCH ×2 (08:44→20:49)
[2018-10-31] MEDS: Spironolactone 25mg tab ORAL SCH (08:44)
--- NOTE | 2018-10-31 10:37 | General Progress Note ---
Assessment/Plan Problem List: (1) Testicular pain ICD Codes: N50.819 - Testicular pain, unspecified SNOMED: 00791477 (2) CHF (congestive heart failure) ICD Codes: I50.9 - Heart failure, unspecified SNOMED: 58589970 (3) Pericardial effusion ICD Codes: I31.3 - Pericardial effusion (noninflammatory) SNOMED: 637230018 (4) Pleural effusion ICD Codes: J90 - Pleural effusion, not elsewhere classified SNOMED: 51200849 (5) Pneumonia ICD Codes: J18.9 - Pneumonia, unspecified organism SNOMED: 007608740 (6) AMRIT (acute kidney injury) ICD Codes: N17.9 - Acute kidney failure, unspecified SNOMED: 3928217, 75568765 (7) Abnormal LFTs ICD Codes: R94.5 - Abnormal results of liver function studies SNOMED: 833518420 (8) Cardiorenal syndrome ICD Codes: I13.10 - Hypertensive heart and chronic kidney disease without heart failure, with stage 1 through stage 4 chronic kidney disease, or unspecified chronic kidney disease SNOMED: 379383818 Status: stable, progressing Assessment/Plan: pt diet pain control cbc bmp am Subjective Constitutional: Reports: weakness Allergies: Coded Allergies: No Known Allergies (Unverified , 10/26/18) All Systems: reviewed and negative except above Subjective sleepy in bed Objective Last 24 Hour Vital Signs Date Time Temp Pulse Resp B/P (MAP) Pulse Ox O2 Delivery O2 Flow Rate FiO2 10/31/18 08:44 107/67 10/31/18 08:43 102 107/67 10/31/18 08:00 97.2 105 20 106/63 (77) 95 10/31/18 04:00 100 10/31/18 04:00 98.2 100 20 114/76 (89) 99 10/31/18 00:00 98.7 119 21 115/74 (88) 99 10/31/18 00:00 131 10/30/18 21:10 109 121/72 10/30/18 20:00 112 10/30/18 20:00 98.1 109 19 121/72 (88) 98 10/30/18 16:00 97.3 106 18 104/77 (86) 98 10/30/18 16:00 106 10/30/18 12:00 113 10/30/18 12:00 97.5 118 20 119/79 (92) 95 Intake and Output 10/30/18 10/31/18 19:00 07:00 Intake Total 360 ml Balance 360 ml Intake Oral 360 ml # Voids 6 3 Laboratory Tests 10/31/18 05:50: White Blood Count 5.7, Red Blood Count 5.19, Hemoglobin 15.6, Hematocrit 49.1, Mean Corpuscular Volume 95, Mean Corpuscular Hemoglobin 30.2, Mean Corpuscular Hemoglobin Concent 31.8L, Red Cell Distribution Width 14.0, Platelet Count 176, Mean Platelet Volume 8.7, Neutrophils (%) (Auto) 57.8, Lymphocytes (%) (Auto) 27.1, Monocytes (%) (Auto) 11.3H, Eosinophils (%) (Auto) 2.2, Basophils (%) ( Auto) 1.7, Sodium Level 144, Potassium Level 3.7, Chloride Level 106, Carbon Dioxide Level 34H, Anion Gap 4L, Blood Urea Nitrogen 22H, Creatinine 1.3, Estimat Glomerular Filtration Rate 55.9, Glucose Level 87, Calcium Level 9.0 Height (Feet): 5 Height (Inches): 11.00 Weight (Pounds): 174 General Appearance: lethargic EENT: normal ENT inspection Neck: normal alignment Cardiovascular: normal peripheral pulses, normal rate, regular rhythm Respiratory/Chest: chest wall non-tender, lungs clear, normal breath sounds Abdomen: normal bowel sounds, non tender, soft Extremities: normal inspection Edema: no edema noted Arm (L), no edema noted Arm (R), no edema noted Leg (L), no edema noted Leg (R), no edema noted Pedal (L), no edema noted Pedal (R), no edema noted Generalized Neurologic: motor weakness Skin: normal pigmentation, warm/dry Js Ca DO Oct 31, 2018 10:37
--- NOTE | 2018-10-31 10:57 | Nephrology Progress Note ---
Assessment/Plan Status: stable, progressing Assessment/Plan: A/P 1) AMRIT- CRS, resolved, cr 1.1. Out patient proteinuria evaluation -24 H urine CrCl 22 ml/min and Total Protein 11 mg/dl 2) Anasarca: likely cardiac and cardiomyopathy - continue lasix 3) h/o Schizophrenia Psych consult per PMD ( schizophrenia history- uncoaporative) echo: Mild left ventricular enlargement . Global left ventricular hypokinesis with anteroseptal dyskinesis ,ischemic cardiomyopathy can not be excluded . Left ventricular ejection fraction estimated to be 20-25%. Subjective Date patient seen: Oct 31, 2018 Time patient seen: 10:52 ROS Limited/Unobtainable: No Allergies: Coded Allergies: No Known Allergies (Unverified , 10/26/18) Subjective Patient up in bed in no overt distress. No CP or SOB Objective Last 24 Hour Vital Signs Date Time Temp Pulse Resp B/P (MAP) Pulse Ox O2 Delivery O2 Flow Rate FiO2 10/31/18 08:44 107/67 10/31/18 08:43 102 107/67 10/31/18 08:00 112 10/31/18 08:00 97.2 105 20 106/63 (77) 95 10/31/18 04:00 100 10/31/18 04:00 98.2 100 20 114/76 (89) 99 10/31/18 00:00 98.7 119 21 115/74 (88) 99 10/31/18 00:00 131 10/30/18 21:10 109 121/72 10/30/18 20:00 112 10/30/18 20:00 98.1 109 19 121/72 (88) 98 10/30/18 16:00 97.3 106 18 104/77 (86) 98 10/30/18 16:00 106 10/30/18 12:00 113 10/30/18 12:00 97.5 118 20 119/79 (92) 95 Intake and Output 10/30/18 10/31/18 19:00 07:00 Intake Total 360 ml Balance 360 ml Intake Oral 360 ml # Voids 6 3 Laboratory Tests 10/31/18 05:50: White Blood Count 5.7, Red Blood Count 5.19, Hemoglobin 15.6, Hematocrit 49.1, Mean Corpuscular Volume 95, Mean Corpuscular Hemoglobin 30.2, Mean Corpuscular Hemoglobin Concent 31.8L, Red Cell Distribution Width 14.0, Platelet Count 176, Mean Platelet Volume 8.7, Neutrophils (%) (Auto) 57.8, Lymphocytes (%) (Auto) 27.1, Monocytes (%) (Auto) 11.3H, Eosinophils (%) (Auto) 2.2, Basophils (%) ( Auto) 1.7, Sodium Level 144, Potassium Level 3.7, Chloride Level 106, Carbon Dioxide Level 34H, Anion Gap 4L, Blood Urea Nitrogen 22H, Creatinine 1.3, Estimat Glomerular Filtration Rate 55.9, Glucose Level 87, Calcium Level 9.0 Height (Feet): 5 Height (Inches): 11.00 Weight (Pounds): 174 General Appearance: no apparent distress, alert EENT: normal ENT inspection, TMs normal Neck: normal alignment, supple Cardiovascular: normal rate, regular rhythm Respiratory/Chest: lungs clear, normal breath sounds Abdomen: non tender, soft Edema: no edema noted Arm (L), no edema noted Arm (R), no edema noted Leg (L), no edema noted Leg (R), no edema noted Pedal (L), no edema noted Pedal (R), no edema noted Generalized Dev Gamez MD Oct 31, 2018 10:57
[2018-10-31 12:00] VITALS: BP 113/71
--- NOTE | 2018-10-31 12:28 | Infectious Diseases Prog Note ---
Assessment/Plan Assessment/Plan MPRESSION: 1. Community-acquired pneumonia. 2. Systolic CHF, EF =20-25% 3. Acute kidney failure. 4. Schizophrenia. 5. Proteinuria. 6. Hepatomegaly 7. Portal hypertension 8. LBBB 9. Pleural effusion RECOMMENDATION: Continue with ceftriaxone and doxycycline. Subjective ROS Limited/Unobtainable: Yes Gastrointestinal/Abdominal: Reports: no symptoms Genitourinary: Reports: other - scrotal swelling Musculoskeletal: Reports: no symptoms Allergies: Coded Allergies: No Known Allergies (Unverified , 10/26/18) Objective Vital Signs Last 24 Hour Vital Signs Date Time Temp Pulse Resp B/P (MAP) Pulse Ox O2 Delivery O2 Flow Rate FiO2 10/31/18 12:00 98.0 108 20 113/71 (85) 97 10/31/18 08:43 102 107/67 10/31/18 08:00 112 10/31/18 08:00 97.2 105 20 106/63 (77) 95 10/31/18 04:00 100 10/31/18 04:00 98.2 100 20 114/76 (89) 99 10/31/18 00:00 98.7 119 21 115/74 (88) 99 10/31/18 00:00 131 10/30/18 21:10 109 121/72 10/30/18 20:00 112 10/30/18 20:00 98.1 109 19 121/72 (88) 98 10/30/18 16:00 97.3 106 18 104/77 (86) 98 10/30/18 16:00 106 Height (Feet): 5 Height (Inches): 11.00 Weight (Pounds): 174 General Appearance: no acute distress HEENT: mucous membranes moist Respiratory/Chest: lungs clear Cardiovascular: normal rate Abdomen: soft, non tender Genitourinary: other - scrotal edema decreasing Extremities: other - legs edema decreasing Laboratory Tests Test 10/31/18 05:50 White Blood Count 5.7 K/UL (4.8-10.8) Red Blood Count 5.19 M/UL (4.70-6.10) Hemoglobin 15.6 G/DL (14.2-18.0) Hematocrit 49.1 % (42.0-52.0) Mean Corpuscular Volume 95 FL (80-99) Mean Corpuscular Hemoglobin 30.2 PG (27.0-31.0) Mean Corpuscular Hemoglobin Concent 31.8 G/DL (32.0-36.0) L Red Cell Distribution Width 14.0 % (11.6-14.8) Platelet Count 176 K/UL (150-450) Mean Platelet Volume 8.7 FL (6.5-10.1) Neutrophils (%) (Auto) 57.8 % (45.0-75.0) Lymphocytes (%) (Auto) 27.1 % (20.0-45.0) Monocytes (%) (Auto) 11.3 % (1.0-10.0) H Eosinophils (%) (Auto) 2.2 % (0.0-3.0) Basophils (%) (Auto) 1.7 % (0.0-2.0) Sodium Level 144 MMOL/L (136-145) Potassium Level 3.7 MMOL/L (3.5-5.1) Chloride Level 106 MMOL/L (98-107) Carbon Dioxide Level 34 MMOL/L (21-32) H Anion Gap 4 mmol/L (5-15) L Blood Urea Nitrogen 22 mg/dL (7-18) H Creatinine 1.3 MG/DL (0.55-1.30) Estimat Glomerular Filtration Rate 55.9 mL/min (>60) Glucose Level 87 MG/DL (74-106) Calcium Level 9.0 MG/DL (8.5-10.1) Current Medications Medications (Trade) Dose Ordered Sig/Judah Route PRN Reason Start Time Stop Time Status Last Admin Dose Admin Carvedilol (Coreg) 3.125 mg EVERY 12 HOURS ORAL 10/28/18 09:00 11/26/18 20:59 10/31/18 08:43 Ceftriaxone Sodium 1 gm/ Dextrose 55 ml @ 110 mls/hr Q24H IVPB 10/29/18 00:00 11/03/18 00:00 10/31/18 00:08 Docusate Sodium (Colace) 100 mg TWICE A DAY ORAL 10/28/18 09:00 11/26/18 17:59 10/31/18 08:43 Doxycycline Hyclate 100 mg/ Dextrose 110 ml @ 110 mls/hr Q12HR IV 10/28/18 09:00 11/03/18 08:59 10/31/18 08:42 Furosemide (Lasix) 40 mg BID IV 10/28/18 09:00 11/26/18 08:59 10/31/18 08:43 Heparin Sodium (Porcine) (Heparin 5000 units/ml) 5,000 units EVERY 12 HOURS SUBQ 10/28/18 09:00 11/26/18 08:59 Lisinopril (Zestril) 5 mg DAILY ORAL 11/01/18 09:00 11/27/18 08:59 Olanzapine (ZyPREXA Zydis) 20 mg DAILY@1700 ORAL 10/30/18 17:00 11/29/18 16:59 10/30/18 16:48 Pantoprazole (Protonix) 40 mg ACBREAKFAST ORAL 10/29/18 06:30 11/27/18 06:29 10/31/18 06:39 Spironolactone (Aldactone) 25 mg DAILY ORAL 10/28/18 09:00 11/27/18 08:59 10/31/18 08:44 Thiamine HCl (Vitamin B1) 100 mg DAILY ORAL 10/28/18 09:00 11/26/18 08:59 10/31/18 08:43 Geoffrey Velasquez MD Oct 31, 2018 12:28
--- NOTE | 2018-10-31 12:40 | General Progress Note ---
Assessment/Plan Status: stable, progressing Assessment/Plan: Assessment (1) Abnormal LFTs ICD Codes: R94.5 - Abnormal results of liver function studies SNOMED: 352936046 (2) Pleural effusion ICD Codes: J90 - Pleural effusion, not elsewhere classified SNOMED: 92085863 Status: stable, unchanged Assessment/Plan US reviewed >> Cholelithiasis. Gallbladder wall thickening. Negative for dilated bile ducts. Liver has normal echogenicity. drug screen negative Hepatitis panel negative symptomatic treatment fu pulm and cardiology recs bowel regime zofran prn ppi follow labs Subjective Allergies: Coded Allergies: No Known Allergies (Unverified , 10/26/18) Subjective feels OK no abd pain tolerating PO (+) BM yesterday Objective Last 24 Hour Vital Signs Date Time Temp Pulse Resp B/P (MAP) Pulse Ox O2 Delivery O2 Flow Rate FiO2 10/31/18 12:00 98.0 108 20 113/71 (85) 97 10/31/18 08:43 102 107/67 10/31/18 08:00 112 10/31/18 08:00 97.2 105 20 106/63 (77) 95 10/31/18 04:00 100 10/31/18 04:00 98.2 100 20 114/76 (89) 99 10/31/18 00:00 98.7 119 21 115/74 (88) 99 10/31/18 00:00 131 10/30/18 21:10 109 121/72 10/30/18 20:00 112 10/30/18 20:00 98.1 109 19 121/72 (88) 98 10/30/18 16:00 97.3 106 18 104/77 (86) 98 10/30/18 16:00 106 Intake and Output 10/30/18 10/31/18 19:00 07:00 Intake Total 360 ml Balance 360 ml Intake Oral 360 ml # Voids 6 3 Laboratory Tests 10/31/18 05:50: White Blood Count 5.7, Red Blood Count 5.19, Hemoglobin 15.6, Hematocrit 49.1, Mean Corpuscular Volume 95, Mean Corpuscular Hemoglobin 30.2, Mean Corpuscular Hemoglobin Concent 31.8L, Red Cell Distribution Width 14.0, Platelet Count 176, Mean Platelet Volume 8.7, Neutrophils (%) (Auto) 57.8, Lymphocytes (%) (Auto) 27.1, Monocytes (%) (Auto) 11.3H, Eosinophils (%) (Auto) 2.2, Basophils (%) ( Auto) 1.7, Sodium Level 144, Potassium Level 3.7, Chloride Level 106, Carbon Dioxide Level 34H, Anion Gap 4L, Blood Urea Nitrogen 22H, Creatinine 1.3, Estimat Glomerular Filtration Rate 55.9, Glucose Level 87, Calcium Level 9.0 Height (Feet): 5 Height (Inches): 11.00 Weight (Pounds): 174 Objective Debilitated WM NCAT supple CTA RR abd soft , distended, NT (+) edema Chetan Plunkett MD Oct 31, 2018 12:40
[2018-10-31 16:00] VITALS: BP 115/70
[2018-10-31] MEDS: ZyPREXA Zydis 10mg tab ORAL SCH (17:27)
--- NOTE | 2018-10-31 18:53 | Pulmonology Progress Note ---
Assessment/Plan Assessment/Plan Pulmonary Progress Note HPI Patient is a 63-year old man with admitted with shortness of breath, lower extremity and scrotal edema/pain. Denies cough, no chest pain. Noted to have features of CHF right lower lobe infiltrate/effusion. Symptoms is been present for at least a week. He notes worsening exertional dyspnea, diffuse swelling, has some pain with urination. Denies any medical history including heart disease, CHF, COPD. He does smoke and states he quit 1 week ago. Denies alcohol use. Denies any recent fevers, chills, vomiting, diarrhea. No new complaints, ambulating well PMH: Schizophrenia Allergies: NKDA Social Hx: Uses tobacco. Denies drugs or alcohol All Other Systems: negative except mentioned in HPI Physical Exam Vital Signs Noted General: Awake and alert, note distressed on oxygen HEENT: NCAT. EOMI. Neck: Supple, No LN Chest Wall: No tenderness, no deformity Cardiovascular: Tachycardic. RRR. S1 and S2 normal. No murmur noted. Resp: Basal crackles bilaterally. No wheezing. Reduced right basal BS Abdomen: Abdomen is distended. Nontender to palpation. Diffuse anasarca Skin: Diffuse anasarca over the entire abdomen and over the lower extremities bilaterally. Testicular enlargement. MSK: Normal tone and bulk. Moving all extremities. No obvious deformity. Neuro: Awake and alert. No focal signs. Bedside Echo in ED: Findings include cardiomegaly, trace pericardial effusion without significant right ventricle or right atrial collapse. Left ventricle appears somewhat enlarged. Impression: Congestive Heart Failure Right sided Pulmonary Infiltrates s/o Pneumonia Right pleural effusion AMRIT (acute kidney injury) Small Pericardial effusion Plan: Diurese PRN Ceftraixone/Doxycycline Monitor labs PPX O2 PRN Thoracent[address] evaluation R/O DVT Laboratory Tests Noted EKG: Rate: tachycardiac Rhythm: NSR, Sinus tachycardia rate 115 bpm, prolonged QTC at 522 ms, normal axis. Low voltage in the limb leads and left bundle branch block pattern in the precordial leads. Chest X-Ray: Cardiomegaly, bilateral congestion, RLL effusion, questionable infiltrate in the right lower lobe Subjective ROS Limited/Unobtainable: No Allergies: Coded Allergies: No Known Allergies (Unverified , 10/26/18) Objective Last 24 Hour Vital Signs Date Time Temp Pulse Resp B/P (MAP) Pulse Ox O2 Delivery O2 Flow Rate FiO2 10/31/18 16:00 98.0 110 22 115/70 (85) 98 10/31/18 16:00 114 10/31/18 12:00 98.0 108 20 113/71 (85) 97 10/31/18 12:00 117 10/31/18 08:43 102 107/67 10/31/18 08:00 112 10/31/18 08:00 97.2 105 20 106/63 (77) 95 10/31/18 04:00 100 10/31/18 04:00 98.2 100 20 114/76 (89) 99 10/31/18 00:00 98.7 119 21 115/74 (88) 99 10/31/18 00:00 131 10/30/18 21:10 109 121/72 10/30/18 20:00 112 10/30/18 20:00 98.1 109 19 121/72 (88) 98 Intake and Output 10/30/18 10/31/18 18:59 06:59 Intake Total 360 ml Balance 360 ml Intake Oral 360 ml # Voids 6 3 Laboratory Tests 10/31/18 05:50: White Blood Count 5.7, Red Blood Count 5.19, Hemoglobin 15.6, Hematocrit 49.1, Mean Corpuscular Volume 95, Mean Corpuscular Hemoglobin 30.2, Mean Corpuscular Hemoglobin Concent 31.8L, Red Cell Distribution Width 14.0, Platelet Count 176, Mean Platelet Volume 8.7, Neutrophils (%) (Auto) 57.8, Lymphocytes (%) (Auto) 27.1, Monocytes (%) (Auto) 11.3H, Eosinophils (%) (Auto) 2.2, Basophils (%) ( Auto) 1.7, Sodium Level 144, Potassium Level 3.7, Chloride Level 106, Carbon Dioxide Level 34H, Anion Gap 4L, Blood Urea Nitrogen 22H, Creatinine 1.3, Estimat Glomerular Filtration Rate 55.9, Glucose Level 87, Calcium Level 9.0 Current Medications Medications (Trade) Dose Ordered Sig/Judah Route PRN Reason Start Time Stop Time Status Last Admin Dose Admin Carvedilol (Coreg) 3.125 mg EVERY 12 HOURS ORAL 10/28/18 09:00 11/26/18 20:59 10/31/18 08:43 Ceftriaxone Sodium 1 gm/ Dextrose 55 ml @ 110 mls/hr Q24H IVPB 10/29/18 00:00 11/03/18 00:00 10/31/18 00:08 Docusate Sodium (Colace) 100 mg TWICE A DAY ORAL 10/28/18 09:00 11/26/18 17:59 10/31/18 17:27 Doxycycline Hyclate 100 mg/ Dextrose 110 ml @ 110 mls/hr Q12HR IV 10/28/18 09:00 11/03/18 08:59 10/31/18 08:42 Furosemide (Lasix) 40 mg BID IV 10/28/18 09:00 11/26/18 08:59 10/31/18 17:27 Heparin Sodium (Porcine) (Heparin 5000 units/ml) 5,000 units EVERY 12 HOURS SUBQ 10/28/18 09:00 11/26/18 08:59 Lisinopril (Zestril) 5 mg DAILY ORAL 11/01/18 09:00 11/27/18 08:59 Olanzapine (ZyPREXA Zydis) 20 mg DAILY@1700 ORAL 10/30/18 17:00 11/29/18 16:59 10/31/18 17:27 Pantoprazole (Protonix) 40 mg ACBREAKFAST ORAL 10/29/18 06:30 11/27/18 06:29 10/31/18 06:39 Spironolactone (Aldactone) 25 mg DAILY ORAL 10/28/18 09:00 11/27/18 08:59 10/31/18 08:44 Thiamine HCl (Vitamin B1) 100 mg DAILY ORAL 10/28/18 09:00 11/26/18 08:59 10/31/18 08:43 Lexa El MD Oct 31, 2018 18:53
--- NOTE | 2018-10-31 19:14 | Cardiac Electrophysiology PN ---
Assessment/Plan Assessment/Plan 1. Shortness of breath and severe lower extremity edema with elevated BNP of 18, 000 due to congestive heart failure. Echocardiogram showed EF only 20 % Continue iv Lasix, Coreg, lisinopril, Aldactone. Need cardiac catheterization for further evaluation of his coronaries. 2. Complete left bundle-branch block. Watch the patient on telemetry. 3. History of pleural effusion. The patient likely would need thoracentesis. 4. Schizophrenia, on Zyprexa ALYSIA RN Subjective Subjective Now taking all of his meds and psych meds Objective Last 24 Hour Vital Signs Date Time Temp Pulse Resp B/P (MAP) Pulse Ox O2 Delivery O2 Flow Rate FiO2 10/31/18 16:00 98.0 110 22 115/70 (85) 98 10/31/18 16:00 114 10/31/18 12:00 98.0 108 20 113/71 (85) 97 10/31/18 12:00 117 10/31/18 08:43 102 107/67 10/31/18 08:00 112 10/31/18 08:00 97.2 105 20 106/63 (77) 95 10/31/18 04:00 100 10/31/18 04:00 98.2 100 20 114/76 (89) 99 10/31/18 00:00 98.7 119 21 115/74 (88) 99 10/31/18 00:00 131 10/30/18 21:10 109 121/72 10/30/18 20:00 112 10/30/18 20:00 98.1 109 19 121/72 (88) 98 Intake and Output 10/30/18 10/31/18 18:59 06:59 Intake Total 360 ml Balance 360 ml Intake Oral 360 ml # Voids 6 3 Laboratory Tests Test 10/31/18 05:50 White Blood Count 5.7 K/UL (4.8-10.8) Red Blood Count 5.19 M/UL (4.70-6.10) Hemoglobin 15.6 G/DL (14.2-18.0) Hematocrit 49.1 % (42.0-52.0) Mean Corpuscular Volume 95 FL (80-99) Mean Corpuscular Hemoglobin 30.2 PG (27.0-31.0) Mean Corpuscular Hemoglobin Concent 31.8 G/DL (32.0-36.0) L Red Cell Distribution Width 14.0 % (11.6-14.8) Platelet Count 176 K/UL (150-450) Mean Platelet Volume 8.7 FL (6.5-10.1) Neutrophils (%) (Auto) 57.8 % (45.0-75.0) Lymphocytes (%) (Auto) 27.1 % (20.0-45.0) Monocytes (%) (Auto) 11.3 % (1.0-10.0) H Eosinophils (%) (Auto) 2.2 % (0.0-3.0) Basophils (%) (Auto) 1.7 % (0.0-2.0) Sodium Level 144 MMOL/L (136-145) Potassium Level 3.7 MMOL/L (3.5-5.1) Chloride Level 106 MMOL/L (98-107) Carbon Dioxide Level 34 MMOL/L (21-32) H Anion Gap 4 mmol/L (5-15) L Blood Urea Nitrogen 22 mg/dL (7-18) H Creatinine 1.3 MG/DL (0.55-1.30) Estimat Glomerular Filtration Rate 55.9 mL/min (>60) Glucose Level 87 MG/DL (74-106) Calcium Level 9.0 MG/DL (8.5-10.1) Objective HEAD AND NECK: Shows positive JVD. LUNGS: Decreased breath sounds. CARDIOVASCULAR: Regular S1 and S2 with no gallop. ABDOMEN: Soft. EXTREMITIES: 3+ pitting edema up to his thigh as well as scrotal edema. Teofilo Rollins MD Oct 31, 2018 19:14
--- NOTE | 2018-10-31 19:41 | NUR ---
HAND-OFF: Report given to CINTHYA Ortega. Pt. in stable condition. Compliant to all medications and treatment. Plan of care endorsed.
--- NOTE | 2018-10-31 19:42 | NUR ---
NURSE NOTES: Received patient awake, lying in semi ash's; resting comfortably. A/O x 3-4. Denies pain at this time. No signs of acute cardiorespiratory distress noted. Checked IV site and flushed. No erythema, bleeding or infiltration noted. Bed at lowest position, brakes on, siderails x3. Call light within reach. Will continue to monitor.
[2018-10-31 20:00] VITALS: BP 115/70
[2018-11-01] VITALS: BP 110/72
[2018-11-01] MEDS: cefTRIAXone 1 GM in D5W 55 ML IVPB SCH (00:19)
--- NOTE | 2018-11-01 00:46 | NUR ---
NURSE NOTES: Resting throughout the night. No significant change of condition noted. Will continue to monitor.
[2018-11-01 04:00] VITALS: BP 117/84
--- NOTE | 2018-11-01 07:12 | NUR ---
HAND-OFF: Report given to CINTHYA Adler. Plan of care endorsed.
--- NOTE | 2018-11-01 07:15 | NUR ---
NURSE NOTES: Report received from CINTHYA Ortega. Pt. AOx4. Standing at bedside, having breakfast. In RA, denies SOB. Reported leg pain but refused medication. Bed on lowest position, side rails upx2, brakes engaged. Call light within easy reach.
[2018-11-01 08:00] VITALS: BP 119/78
[2018-11-01 08:06] LABS: BASOPHILS % (AUTO) 1.5 % (0.0-2.0); EOSINOPHILS % (AUTO) 3.6 % (0.0-3.0); HEMATOCRIT 45.4 % (42.0-52.0); HEMOGLOBIN 14.6 G/DL (14.2-18.0); LYMPHOCYTES % (AUTO) 39.3 % (20.0-45.0); MEAN CORPUSCULAR VOLUME 95 FL (80-99); MONOCYTES % (AUTO) 13.7 % (1.0-10.0); PLATELET COUNT 171 K/UL (150-450); RED BLOOD COUNT 4.79 M/UL (4.70-6.10); RED CELL DISTRIBUTION WIDTH 14.2 % (11.6-14.8); WHITE BLOOD COUNT 4.8 K/UL (4.8-10.8)
--- NOTE | 2018-11-01 08:15 | General Progress Note ---
Assessment/Plan Problem List: (1) CHF (congestive heart failure) ICD Codes: I50.9 - Heart failure, unspecified SNOMED: 20982123 (2) Pericardial effusion ICD Codes: I31.3 - Pericardial effusion (noninflammatory) SNOMED: 902104920 (3) Pleural effusion ICD Codes: J90 - Pleural effusion, not elsewhere classified SNOMED: 89784680 (4) Pneumonia ICD Codes: J18.9 - Pneumonia, unspecified organism SNOMED: 350457723 (5) AMRIT (acute kidney injury) ICD Codes: N17.9 - Acute kidney failure, unspecified SNOMED: 9678316, 90107049 Status: stable, progressing Assessment/Plan: (1) Abnormal LFTs ICD Codes: R94.5 - Abnormal results of liver function studies SNOMED: 914663996 (2) Pleural effusion ICD Codes: J90 - Pleural effusion, not elsewhere classified SNOMED: 44622060 Status: stable, unchanged Assessment/Plan US reviewed >> Cholelithiasis. Gallbladder wall thickening. Negative for dilated bile ducts. Liver has normal echogenicity. drug screen negative Hepatitis panel negative symptomatic treatment fu pulm and cardiology recs bowel regime zofran prn ppi follow labs Subjective ROS Limited/Unobtainable: Yes Allergies: Coded Allergies: No Known Allergies (Unverified , 10/26/18) Subjective c/o SOB Objective Last 24 Hour Vital Signs Date Time Temp Pulse Resp B/P (MAP) Pulse Ox O2 Delivery O2 Flow Rate FiO2 11/01/18 04:00 107 11/01/18 04:00 98.0 113 19 117/84 (95) 97 11/01/18 00:00 98.6 114 22 110/72 (85) 98 11/01/18 00:00 115 10/31/18 21:00 Nasal Cannula 2.0 10/31/18 20:49 121 105/80 10/31/18 20:13 111 18 95 Room Air 21 10/31/18 20:00 98.3 121 20 115/70 (85) 95 10/31/18 20:00 110 10/31/18 16:00 98.0 110 22 115/70 (85) 98 10/31/18 16:00 114 10/31/18 12:00 98.0 108 20 113/71 (85) 97 10/31/18 12:00 117 10/31/18 08:43 102 107/67 Intake and Output 10/31/18 11/01/18 19:00 07:00 Intake Total 800 ml Balance 800 ml Intake Oral 800 ml # Voids 6 2 Laboratory Tests 11/01/18 06:14: White Blood Count 4.8, Red Blood Count 4.79, Hemoglobin 14.6, Hematocrit 45.4, Mean Corpuscular Volume 95, Mean Corpuscular Hemoglobin 30.4, Mean Corpuscular Hemoglobin Concent 32.1, Red Cell Distribution Width 14.2, Platelet Count 171, Mean Platelet Volume 8.6, Neutrophils (%) (Auto) 42.0L, Lymphocytes (%) (Auto) 39.3, Monocytes (%) (Auto) 13.7H, Eosinophils (%) (Auto) 3.6H, Basophils (%) ( Auto) 1.5, Sodium Level [Pending], Potassium Level [Pending], Chloride Level [ Pending], Carbon Dioxide Level [Pending], Blood Urea Nitrogen [Pending], Creatinine [Pending], Estimat Glomerular Filtration Rate [Pending], Glucose Level [Pending], Calcium Level [Pending], Phosphorus Level [Pending], Magnesium Level [Pending], Total Bilirubin [Pending], Direct Bilirubin [Pending], Aspartate Amino Transf (AST/SGOT) [Pending], Alanine Aminotransferase (ALT/SGPT ) [Pending], Alkaline Phosphatase [Pending], Total Protein [Pending], Albumin [ Pending] Height (Feet): 5 Height (Inches): 11.00 Weight (Pounds): 160 General Appearance: alert EENT: normal ENT inspection Neck: supple Cardiovascular: normal rate Respiratory/Chest: decreased breath sounds Abdomen: normal bowel sounds, non tender, soft Extremities: non-tender Danny Natarajan MD Nov 01, 2018 08:15
[2018-11-01 08:56] LABS: ANION GAP 7 mmol/L (5-15); BLOOD UREA NITROGEN 24 mg/dL (7-18); CALCIUM 9.1 MG/DL (8.5-10.1); CARBON DIOXIDE 31 MMOL/L (21-32); CHLORIDE 106 MMOL/L (98-107); CREATININE 1.1 MG/DL (0.55-1.30); POTASSIUM 3.8 MMOL/L (3.5-5.1); SODIUM 144 MMOL/L (136-145)
[2018-11-01] MEDS ORDERED: Lisinopril 10mg tab ORAL SCH (09:00)
[2018-11-01] MEDS: Heparin 5000 units/ml inj SUBQ SCH ×2 (09:00→20:59)
[2018-11-01] MEDS: Docusate 100mg cap ORAL SCH ×3 (09:07→17:21)
[2018-11-01] MEDS: Thiamine 100mg tab ORAL SCH (09:07)
[2018-11-01] MEDS: Spironolactone 25mg tab ORAL SCH (09:08)
[2018-11-01] MEDS: Doxycycline Hyclate 100 MG in D5W 110 ML IV SCH (09:10)
[2018-11-01 09:16] LABS: ALANINE AMINOTRANSFERASE 36 U/L (12-78); ALBUMIN 2.8 G/DL (3.4-5.0); ALKALINE PHOSPHATASE 115 U/L (46-116); ASPARTATE AMINO TRANSFERASE 34 U/L (15-37); BILIRUBIN,DIRECT 0.3 MG/DL (0.0-0.3); PHOSPHORUS 2.8 MG/DL (2.5-4.9)
--- NOTE | 2018-11-01 10:56 | NUR ---
[employer] 10/30/18 SI: ACUTE RENAL FAILURE T. 98.1 HR 119 RR 21 B/P 115/74 BUN 27 IS: CEFTRIAXONE IV DOXYCYCLINE IV LASIX IV HEPARIN SUBC PROTONIX PO ZESTRIL PO TELE STATUS 10/31/18 SI: ACUTE RENAL FAILURE T. 87.2 HR 105 RR 20 B/P 106/63 BUN 22 CO2 34 IS; CEFTRIAXONE IV DOXYCYCLINE IV LASIX IV PROTONIX PO ZESTRIL PO HEPARIN SUCB TELE STATUS 11/01/18 SI: ACUTE RENAL FAILURE T. 98.6 HR 114 RR 22 B/P 110/72 2L NC BUN 24 IS: CEFTRIAXONE IV DOXYCYCLINE IV LASIX IV PROTONIX PO ZESTRIL PO HEPARIN SUBC TELE STATUS
--- NOTE | 2018-11-01 11:11 | Nephrology Progress Note ---
Assessment/Plan Problem List: (1) Cardiorenal syndrome (2) CHF (congestive heart failure) (3) Pericardial effusion (4) Pleural effusion (5) Abnormal LFTs Assessment Anasarca: likely cardiac and cardiomyopathy Has proteinuria Cr mildly elevated on admission now wnl h/o Schizophrenia Plan increase Coreg 2D Echo noted Abd KEIRA noted 24 H urine CrCl and Total Protein pending Monitor renal parameters TFT HgbA1c noted per current management optimize cardiac status Psych consult per PMD ( schizophrenia history- uncoaporative) echo: Mild left ventricular enlargement . Global left ventricular hypokinesis with anteroseptal dyskinesis ,ischemic cardiomyopathy can not be excluded . Left ventricular ejection fraction estimated to be 20-25%. KEIRA: To-and-fro flow within the main portal vein may indicate portal hypertension Hepatomegaly Ascites Cholelithiasis. Gallbladder wall thickening may be related to the hemodynamic changes causing the ascites, but the possibility of acute cholecystitis should also be considered. Consider hepatobiliary nuclear scan if there is high clinical suspicion Negative for dilated bile ducts Bilateral pleural effusions Subjective ROS Limited/Unobtainable: No Constitutional: Reports: malaise, weakness Objective Objective Last 24 Hour Vital Signs Date Time Temp Pulse Resp B/P (MAP) Pulse Ox O2 Delivery O2 Flow Rate FiO2 11/01/18 09:08 115 119/78 11/01/18 09:00 119/78 11/01/18 08:00 97.6 115 22 119/78 (92) 97 11/01/18 08:00 117 11/01/18 04:00 107 11/01/18 04:00 98.0 113 19 117/84 (95) 97 11/01/18 00:00 98.6 114 22 110/72 (85) 98 11/01/18 00:00 115 10/31/18 21:00 Nasal Cannula 2.0 10/31/18 20:49 121 105/80 10/31/18 20:13 111 18 95 Room Air 21 10/31/18 20:00 98.3 121 20 115/70 (85) 95 10/31/18 20:00 110 10/31/18 16:00 98.0 110 22 115/70 (85) 98 10/31/18 16:00 114 10/31/18 12:00 98.0 108 20 113/71 (85) 97 10/31/18 12:00 117 Intake and Output 10/31/18 11/01/18 19:00 07:00 Intake Total 800 ml Balance 800 ml Intake Oral 800 ml # Voids 6 2 Laboratory Tests 11/01/18 06:14: White Blood Count 4.8, Red Blood Count 4.79, Hemoglobin 14.6, Hematocrit 45.4, Mean Corpuscular Volume 95, Mean Corpuscular Hemoglobin 30.4, Mean Corpuscular Hemoglobin Concent 32.1, Red Cell Distribution Width 14.2, Platelet Count 171, Mean Platelet Volume 8.6, Neutrophils (%) (Auto) 42.0L, Lymphocytes (%) (Auto) 39.3, Monocytes (%) (Auto) 13.7H, Eosinophils (%) (Auto) 3.6H, Basophils (%) ( Auto) 1.5, Sodium Level 144, Potassium Level 3.8, Chloride Level 106, Carbon Dioxide Level 31, Anion Gap 7, Blood Urea Nitrogen 24H, Creatinine 1.1, Estimat Glomerular Filtration Rate > 60, Glucose Level 82, Calcium Level 9.1, Phosphorus Level 2.8, Magnesium Level 2.0, Total Bilirubin 1.0, Direct Bilirubin 0.3, Aspartate Amino Transf (AST/SGOT) 34, Alanine Aminotransferase ( ALT/SGPT) 36, Alkaline Phosphatase 115, Total Protein 6.1L, Albumin 2.8L Height (Feet): 5 Height (Inches): 11.00 Weight (Pounds): 160 General Appearance: no apparent distress, lethargic Cardiovascular: tachycardia Respiratory/Chest: decreased breath sounds Abdomen: distended Extremities: moderate edema Jasbir Corbin MD Nov 01, 2018 11:11
--- NOTE | 2018-11-01 11:30 | NUR ---
*-* INSURANCE *-* UPDATED CLINICALS AND REVIEW HAVE BEEN FAXED TO: [facility] [place]: RENÉ VINCENT# [id number] P: [phone] F: [phone] F# [phone] P: [phone] DISCHARGING NEEDS PLS CALL P: [phone]
--- NOTE | 2018-11-01 11:46 | Cardiac Electrophysiology PN ---
Assessment/Plan Assessment/Plan 1. Shortness of breath and severe lower extremity edema with elevated BNP of 18, 000 due to CHF and EF only 20 % Continue Lasix, Coreg, lisinopril, Aldactone. Change IV Lasix to po Need cardiac catheterization for further evaluation of his coronaries. 2. Complete left bundle-branch block. Watch the patient on telemetry. 3. Pleural effusion. S/P 850cc Right thoracentesis. 4. Schizophrenia, on Zyprexa DW RN Subjective Subjective Much calmer and compliant today. RN at bedside. Objective Last 24 Hour Vital Signs Date Time Temp Pulse Resp B/P (MAP) Pulse Ox O2 Delivery O2 Flow Rate FiO2 11/01/18 09:08 115 119/78 11/01/18 09:00 Room Air 11/01/18 09:00 119/78 11/01/18 08:00 97.6 115 22 119/78 (92) 97 11/01/18 08:00 117 11/01/18 04:00 107 11/01/18 04:00 98.0 113 19 117/84 (95) 97 11/01/18 00:00 98.6 114 22 110/72 (85) 98 11/01/18 00:00 115 10/31/18 21:00 Nasal Cannula 2.0 10/31/18 20:49 121 105/80 10/31/18 20:13 111 18 95 Room Air 21 10/31/18 20:00 98.3 121 20 115/70 (85) 95 10/31/18 20:00 110 10/31/18 16:00 98.0 110 22 115/70 (85) 98 10/31/18 16:00 114 10/31/18 12:00 98.0 108 20 113/71 (85) 97 10/31/18 12:00 117 Intake and Output 10/31/18 11/01/18 19:00 07:00 Intake Total 800 ml Balance 800 ml Intake Oral 800 ml # Voids 6 2 Laboratory Tests Test 11/01/18 06:14 White Blood Count 4.8 K/UL (4.8-10.8) Red Blood Count 4.79 M/UL (4.70-6.10) Hemoglobin 14.6 G/DL (14.2-18.0) Hematocrit 45.4 % (42.0-52.0) Mean Corpuscular Volume 95 FL (80-99) Mean Corpuscular Hemoglobin 30.4 PG (27.0-31.0) Mean Corpuscular Hemoglobin Concent 32.1 G/DL (32.0-36.0) Red Cell Distribution Width 14.2 % (11.6-14.8) Platelet Count 171 K/UL (150-450) Mean Platelet Volume 8.6 FL (6.5-10.1) Neutrophils (%) (Auto) 42.0 % (45.0-75.0) L Lymphocytes (%) (Auto) 39.3 % (20.0-45.0) Monocytes (%) (Auto) 13.7 % (1.0-10.0) H Eosinophils (%) (Auto) 3.6 % (0.0-3.0) H Basophils (%) (Auto) 1.5 % (0.0-2.0) Sodium Level 144 MMOL/L (136-145) Potassium Level 3.8 MMOL/L (3.5-5.1) Chloride Level 106 MMOL/L (98-107) Carbon Dioxide Level 31 MMOL/L (21-32) Anion Gap 7 mmol/L (5-15) Blood Urea Nitrogen 24 mg/dL (7-18) H Creatinine 1.1 MG/DL (0.55-1.30) Estimat Glomerular Filtration Rate > 60 mL/min (>60) Glucose Level 82 MG/DL (74-106) Calcium Level 9.1 MG/DL (8.5-10.1) Phosphorus Level 2.8 MG/DL (2.5-4.9) Magnesium Level 2.0 MG/DL (1.8-2.4) Total Bilirubin 1.0 MG/DL (0.2-1.0) Direct Bilirubin 0.3 MG/DL (0.0-0.3) Aspartate Amino Transf (AST/SGOT) 34 U/L (15-37) Alanine Aminotransferase (ALT/SGPT) 36 U/L (12-78) Alkaline Phosphatase 115 U/L (46-116) Total Protein 6.1 G/DL (6.4-8.2) L Albumin 2.8 G/DL (3.4-5.0) L Objective HEAD AND NECK: Shows positive JVD. LUNGS: Decreased breath sounds. CARDIOVASCULAR: Regular S1 and S2 with no gallop. ABDOMEN: Soft. EXTREMITIES: 3+ pitting edema up to his thigh as well as scrotal edema. Teofilo Rollins MD Nov 01, 2018 11:46
[2018-11-01 12:00] VITALS: BP 112/69
--- NOTE | 2018-11-01 12:53 | Infectious Diseases Prog Note ---
Assessment/Plan Assessment/Plan MPRESSION: 1. Community-acquired pneumonia.treated 2. Systolic CHF, EF =20-25% 3. Acute kidney failure.improving 4. Schizophrenia. 5. Proteinuria. 6. Hepatomegaly 7. Portal hypertension 8. LBBB 9. Pleural effusion RECOMMENDATION: Discontinue ceftriaxone and doxycycline. Observe off antibiotic Subjective ROS Limited/Unobtainable: No Constitutional: Reports: no symptoms Respiratory: Reports: no symptoms Genitourinary: Reports: other - scrotal pain & swelling decreased Allergies: Coded Allergies: No Known Allergies (Unverified , 10/26/18) Objective Vital Signs Last 24 Hour Vital Signs Date Time Temp Pulse Resp B/P (MAP) Pulse Ox O2 Delivery O2 Flow Rate FiO2 11/01/18 09:08 115 119/78 11/01/18 09:00 Room Air 11/01/18 09:00 119/78 11/01/18 08:00 97.6 115 22 119/78 (92) 97 11/01/18 08:00 117 11/01/18 04:00 107 11/01/18 04:00 98.0 113 19 117/84 (95) 97 11/01/18 00:00 98.6 114 22 110/72 (85) 98 11/01/18 00:00 115 10/31/18 21:00 Nasal Cannula 2.0 10/31/18 20:49 121 105/80 10/31/18 20:13 111 18 95 Room Air 21 10/31/18 20:00 98.3 121 20 115/70 (85) 95 10/31/18 20:00 110 10/31/18 16:00 98.0 110 22 115/70 (85) 98 10/31/18 16:00 114 Height (Feet): 5 Height (Inches): 11.00 Weight (Pounds): 160 HEENT: mucous membranes moist Respiratory/Chest: lungs clear Cardiovascular: tachycardia Abdomen: soft, non tender Extremities: other - edema of legs Neurologic/Psychiatric: alert, responsive Laboratory Tests Test 11/01/18 06:14 White Blood Count 4.8 K/UL (4.8-10.8) Red Blood Count 4.79 M/UL (4.70-6.10) Hemoglobin 14.6 G/DL (14.2-18.0) Hematocrit 45.4 % (42.0-52.0) Mean Corpuscular Volume 95 FL (80-99) Mean Corpuscular Hemoglobin 30.4 PG (27.0-31.0) Mean Corpuscular Hemoglobin Concent 32.1 G/DL (32.0-36.0) Red Cell Distribution Width 14.2 % (11.6-14.8) Platelet Count 171 K/UL (150-450) Mean Platelet Volume 8.6 FL (6.5-10.1) Neutrophils (%) (Auto) 42.0 % (45.0-75.0) L Lymphocytes (%) (Auto) 39.3 % (20.0-45.0) Monocytes (%) (Auto) 13.7 % (1.0-10.0) H Eosinophils (%) (Auto) 3.6 % (0.0-3.0) H Basophils (%) (Auto) 1.5 % (0.0-2.0) Sodium Level 144 MMOL/L (136-145) Potassium Level 3.8 MMOL/L (3.5-5.1) Chloride Level 106 MMOL/L (98-107) Carbon Dioxide Level 31 MMOL/L (21-32) Anion Gap 7 mmol/L (5-15) Blood Urea Nitrogen 24 mg/dL (7-18) H Creatinine 1.1 MG/DL (0.55-1.30) Estimat Glomerular Filtration Rate > 60 mL/min (>60) Glucose Level 82 MG/DL (74-106) Calcium Level 9.1 MG/DL (8.5-10.1) Phosphorus Level 2.8 MG/DL (2.5-4.9) Magnesium Level 2.0 MG/DL (1.8-2.4) Total Bilirubin 1.0 MG/DL (0.2-1.0) Direct Bilirubin 0.3 MG/DL (0.0-0.3) Aspartate Amino Transf (AST/SGOT) 34 U/L (15-37) Alanine Aminotransferase (ALT/SGPT) 36 U/L (12-78) Alkaline Phosphatase 115 U/L (46-116) Total Protein 6.1 G/DL (6.4-8.2) L Albumin 2.8 G/DL (3.4-5.0) L Current Medications Medications (Trade) Dose Ordered Sig/Judah Route PRN Reason Start Time Stop Time Status Last Admin Dose Admin Carvedilol (Coreg) 6.25 mg EVERY 12 HOURS ORAL 11/01/18 21:00 11/26/18 20:59 Ceftriaxone Sodium 1 gm/ Dextrose 55 ml @ 110 mls/hr Q24H IVPB 10/29/18 00:00 11/03/18 00:00 11/01/18 00:19 Docusate Sodium (Colace) 100 mg TID ORAL 11/01/18 13:00 11/26/18 17:59 Doxycycline Hyclate 100 mg/ Dextrose 110 ml @ 110 mls/hr Q12HR IV 10/28/18 09:00 11/03/18 08:59 11/01/18 09:10 Furosemide (Lasix) 40 mg EVERY 12 HOURS ORAL 11/01/18 21:00 12/01/18 20:59 Heparin Sodium (Porcine) (Heparin 5000 units/ml) 5,000 units EVERY 12 HOURS SUBQ 10/28/18 09:00 11/26/18 08:59 10/31/18 20:49 Lisinopril (Zestril) 5 mg DAILY ORAL 11/02/18 09:00 12/02/18 08:59 Olanzapine (ZyPREXA Zydis) 20 mg DAILY@1700 ORAL 10/30/18 17:00 11/29/18 16:59 10/31/18 17:27 Pantoprazole (Protonix) 40 mg ACBREAKFAST ORAL 10/29/18 06:30 11/27/18 06:29 11/01/18 05:48 Spironolactone (Aldactone) 25 mg DAILY ORAL 10/28/18 09:00 11/27/18 08:59 11/01/18 09:08 Thiamine HCl (Vitamin B1) 100 mg DAILY ORAL 10/28/18 09:00 11/26/18 08:59 11/01/18 09:07 Geoffrey Velasquez MD Nov 01, 2018 12:53
--- NOTE | 2018-11-01 15:21 | Hematology/Onc Progress Note ---
Assessment/Plan Assessment/Plan # Elevated d-dimer on admission - have reviewed imaging, can be elevated in setting of acute exacerbation of chf, the nuclear v/q scan was negative --> v/q scan was indeterminate pe probability --> venous duplex negative --> unlikely indicator in this setting of vte even --> on sq heparin # Coagulopathy in the setting of fluid overload --> likely inr is elevated due to above --> periodically recheck inr/pt # Anemia of chronic disease --> likely chf related, multifactorial process --> trend as needed # Right sided Pulmonary Infiltrates s/o Pneumonia --> diuresis as per pulm --> very poor compliant --> is on abx ctx/doxy--> per id off abx # Right pleural effusion --> thora prn # AMRIT (acute kidney injury) --> per renal # Small Pericardial effusion # Pna -- on abx as per id # noncompliance # Dvt ppx with heparin sq The timing of this note does not necessarily reflect the time of the patient was seen. Greatly appreciate consultation. Subjective Constitutional: Denies: no symptoms, chills, fever, malaise, weakness, other HEENT: Denies: no symptoms, eye pain, blurred vision, tearing, double vision, ear pain, ear discharge, nose pain, nose congestion, throat pain, throat swelling, mouth pain, mouth swelling, other Cardiovascular: Denies: no symptoms, chest pain, edema, irregular heart rate, lightheadedness, palpitations, syncope, other Respiratory: Denies: no symptoms, cough, shortness of breath, SOB with excertion, SOB at rest, sputum, wheezing, other Gastrointestinal/Abdominal: Denies: no symptoms, abdomen distended, abdominal pain, black stools, tarry stools, blood in stool, constipated, diarrhea, difficulty swallowing, nausea, poor appetite, poor fluid intake, rectal bleeding , vomiting, other Genitourinary: Denies: no symptoms, burning, discharge, frequency, flank pain, hematuria, incontinence, pain, urgency, other Neurologic/Psychiatric: Denies: no symptoms, anxiety, depressed, emotional problems, headache, numbness, paresthesia, pre-existing deficit, seizure, tingling, tremors, weakness, other Endocrine: Denies: no symptoms, excessive sweating, flushing, intolerance to cold, intolerance to heat, increased hunger, increased thirst, increased urine, unexplained weight gain, unexplained weight loss, other Allergies: Coded Allergies: No Known Allergies (Unverified , 10/26/18) Subjective 10/29: no bleeding, no chills, cbc stable, d-dimer elevated before, sob better 10/30: no night sweats, labs have been reviewed, inr was alex, refusing meds 11/01: as per cards, may need cath, no f/c, eating this am Objective Objective Current Medications Medications (Trade) Dose Ordered Sig/Judah Route PRN Reason Start Time Stop Time Status Last Admin Dose Admin Carvedilol (Coreg) 6.25 mg EVERY 12 HOURS ORAL 11/01/18 21:00 11/26/18 20:59 Docusate Sodium (Colace) 100 mg TID ORAL 11/01/18 13:00 11/26/18 17:59 11/01/18 13:51 Furosemide (Lasix) 40 mg EVERY 12 HOURS ORAL 11/01/18 21:00 12/01/18 20:59 Heparin Sodium (Porcine) (Heparin 5000 units/ml) 5,000 units EVERY 12 HOURS SUBQ 10/28/18 09:00 11/26/18 08:59 10/31/18 20:49 Lisinopril (Zestril) 5 mg DAILY ORAL 11/02/18 09:00 12/02/18 08:59 Olanzapine (ZyPREXA Zydis) 20 mg DAILY@1700 ORAL 10/30/18 17:00 11/29/18 16:59 10/31/18 17:27 Pantoprazole (Protonix) 40 mg ACBREAKFAST ORAL 10/29/18 06:30 11/27/18 06:29 11/01/18 05:48 Spironolactone (Aldactone) 25 mg DAILY ORAL 10/28/18 09:00 11/27/18 08:59 11/01/18 09:08 Thiamine HCl (Vitamin B1) 100 mg DAILY ORAL 10/28/18 09:00 11/26/18 08:59 11/01/18 09:07 Last 24 Hour Vital Signs Date Time Temp Pulse Resp B/P (MAP) Pulse Ox O2 Delivery O2 Flow Rate FiO2 11/01/18 12:00 97.5 108 20 112/69 (83) 95 11/01/18 12:00 108 11/01/18 09:08 115 119/78 11/01/18 09:00 Room Air 11/01/18 09:00 119/78 11/01/18 08:00 97.6 115 22 119/78 (92) 97 11/01/18 08:00 117 11/01/18 04:00 107 11/01/18 04:00 98.0 113 19 117/84 (95) 97 11/01/18 00:00 98.6 114 22 110/72 (85) 98 11/01/18 00:00 115 10/31/18 21:00 Nasal Cannula 2.0 10/31/18 20:49 121 105/80 10/31/18 20:13 111 18 95 Room Air 21 10/31/18 20:00 98.3 121 20 115/70 (85) 95 10/31/18 20:00 110 10/31/18 16:00 98.0 110 22 115/70 (85) 98 10/31/18 16:00 114 10/31/18 12:00 98.0 108 20 113/71 (85) 97 10/31/18 12:00 117 10/31/18 09:00 Room Air 10/31/18 08:43 102 107/67 10/31/18 08:00 112 10/31/18 08:00 97.2 105 20 106/63 (77) 95 10/31/18 04:00 100 10/31/18 04:00 98.2 100 20 114/76 (89) 99 10/31/18 00:00 98.7 119 21 115/74 (88) 99 10/31/18 00:00 131 10/30/18 21:10 109 121/72 10/30/18 20:00 112 10/30/18 20:00 98.1 109 19 121/72 (88) 98 10/30/18 16:00 97.3 106 18 104/77 (86) 98 10/30/18 16:00 106 Intake and Output 10/31/18 11/01/18 19:00 07:00 Intake Total 800 ml Balance 800 ml Intake Oral 800 ml # Voids 6 2 Labs Test 10/30/18 06:55 10/31/18 05:50 11/01/18 06:14 White Blood Count 5.4 K/UL (4.8-10.8) 5.7 K/UL (4.8-10.8) 4.8 K/UL (4.8-10.8) Red Blood Count 4.79 M/UL (4.70-6.10) 5.19 M/UL (4.70-6.10) 4.79 M/UL (4.70-6.10) Hemoglobin 14.7 G/DL (14.2-18.0) 15.6 G/DL (14.2-18.0) 14.6 G/DL (14.2-18.0) Hematocrit 45.6 % (42.0-52.0) 49.1 % (42.0-52.0) 45.4 % (42.0-52.0) Mean Corpuscular Volume 95 FL (80-99) 95 FL (80-99) 95 FL (80-99) Mean Corpuscular Hemoglobin 30.7 PG (27.0-31.0) 30.2 PG (27.0-31.0) 30.4 PG (27.0-31.0) Mean Corpuscular Hemoglobin Concent 32.3 G/DL (32.0-36.0) 31.8 G/DL (32.0-36.0) 32.1 G/DL (32.0-36.0) Red Cell Distribution Width 14.1 % (11.6-14.8) 14.0 % (11.6-14.8) 14.2 % (11.6-14.8) Platelet Count 169 K/UL (150-450) 176 K/UL (150-450) 171 K/UL (150-450) Mean Platelet Volume 8.2 FL (6.5-10.1) 8.7 FL (6.5-10.1) 8.6 FL (6.5-10.1) Neutrophils (%) (Auto) 57.0 % (45.0-75.0) 57.8 % (45.0-75.0) 42.0 % (45.0-75.0) Lymphocytes (%) (Auto) 27.2 % (20.0-45.0) 27.1 % (20.0-45.0) 39.3 % (20.0-45.0) Monocytes (%) (Auto) 11.7 % (1.0-10.0) 11.3 % (1.0-10.0) 13.7 % (1.0-10.0) Eosinophils (%) (Auto) 3.0 % (0.0-3.0) 2.2 % (0.0-3.0) 3.6 % (0.0-3.0) Basophils (%) (Auto) 1.1 % (0.0-2.0) 1.7 % (0.0-2.0) 1.5 % (0.0-2.0) Sodium Level 144 MMOL/L (136-145) 144 MMOL/L (136-145) 144 MMOL/L (136-145) Potassium Level 3.6 MMOL/L (3.5-5.1) 3.7 MMOL/L (3.5-5.1) 3.8 MMOL/L (3.5-5.1) Chloride Level 105 MMOL/L (98-107) 106 MMOL/L (98-107) 106 MMOL/L (98-107) Carbon Dioxide Level 32 MMOL/L (21-32) 34 MMOL/L (21-32) 31 MMOL/L (21-32) Anion Gap 7 mmol/L (5-15) 4 mmol/L (5-15) 7 mmol/L (5-15) Blood Urea Nitrogen 27 mg/dL (7-18) 22 mg/dL (7-18) 24 mg/dL (7-18) Creatinine 1.1 MG/DL (0.55-1.30) 1.3 MG/DL (0.55-1.30) 1.1 MG/DL (0.55-1.30) Estimat Glomerular Filtration Rate > 60 mL/min (>60) 55.9 mL/min (>60) > 60 mL/min (>60) Glucose Level 100 MG/DL (74-106) 87 MG/DL (74-106) 82 MG/DL (74-106) Calcium Level 8.8 MG/DL (8.5-10.1) 9.0 MG/DL (8.5-10.1) 9.1 MG/DL (8.5-10.1) Phosphorus Level 2.8 MG/DL (2.5-4.9) Magnesium Level 2.0 MG/DL (1.8-2.4) Total Bilirubin 1.0 MG/DL (0.2-1.0) Direct Bilirubin 0.3 MG/DL (0.0-0.3) Aspartate Amino Transf (AST/SGOT) 34 U/L (15-37) Alanine Aminotransferase (ALT/SGPT) 36 U/L (12-78) Alkaline Phosphatase 115 U/L (46-116) Total Protein 6.1 G/DL (6.4-8.2) Albumin 2.8 G/DL (3.4-5.0) Height (Feet): 5 Height (Inches): 11.00 Weight (Pounds): 160 Objective Vitals: reviewed General Appearance: NAD HEENT: normocephalic, atraumatic Neck: non-tender, normal alignment Respiratory/Chest: ++ bilateral crackles noted on exam Cardiovascular/Chest: normal peripheral pulses, normal rate Abdomen: normal bowel sounds, soft Ext: 2+ edema lower ext noted Duncan Pereira MD Nov 01, 2018 15:21
[2018-11-01 16:00] VITALS: BP 110/77
[2018-11-01] MEDS: ZyPREXA Zydis 10mg tab ORAL SCH (17:25)
--- NOTE | 2018-11-01 18:55 | Pulmonology Progress Note ---
Assessment/Plan Assessment/Plan Pulmonary Progress Note HPI Patient is a 63-year old man with admitted with shortness of breath, lower extremity and scrotal edema/pain. Denies cough, no chest pain. Noted to have features of CHF right lower lobe infiltrate/effusion. Symptoms is been present for at least a week. He notes worsening exertional dyspnea, diffuse swelling, has some pain with urination. Denies any medical history including heart disease, CHF, COPD. He does smoke and states he quit 1 week ago. Denies alcohol use. Denies any recent fevers, chills, vomiting, diarrhea. No new complaints, ambulating well PMH: Schizophrenia Allergies: NKDA Social Hx: Uses tobacco. Denies drugs or alcohol All Other Systems: negative except mentioned in HPI Physical Exam Vital Signs Noted General: Awake and alert, note distressed on oxygen HEENT: NCAT. EOMI. Neck: Supple, No LN Chest Wall: No tenderness, no deformity Cardiovascular: Tachycardic. RRR. S1 and S2 normal. No murmur noted. Resp: Basal crackles bilaterally. No wheezing. Reduced right basal BS Abdomen: Abdomen is distended. Nontender to palpation. Diffuse anasarca Skin: Diffuse anasarca over the entire abdomen and over the lower extremities bilaterally. Testicular enlargement. MSK: Normal tone and bulk. Moving all extremities. No obvious deformity. Neuro: Awake and alert. No focal signs. Bedside Echo in ED: Findings include cardiomegaly, trace pericardial effusion without significant right ventricle or right atrial collapse. Left ventricle appears somewhat enlarged. Impression: Congestive Heart Failure Right sided Pulmonary Infiltrates s/o Pneumonia Right pleural effusion AMRIT (acute kidney injury) Small Pericardial effusion Plan: Diurese PRN Ceftraixone/Doxycycline Monitor labs PPX O2 PRN Thoracentesis ST evaluation R/O DVT Laboratory Tests Noted EKG: Rate: tachycardiac Rhythm: NSR, Sinus tachycardia rate 115 bpm, prolonged QTC at 522 ms, normal axis. Low voltage in the limb leads and left bundle branch block pattern in the precordial leads. Chest X-Ray: Cardiomegaly, bilateral congestion, RLL effusion, questionable infiltrate in the right lower lobe Subjective ROS Limited/Unobtainable: No Allergies: Coded Allergies: No Known Allergies (Unverified , 10/26/18) Objective Last 24 Hour Vital Signs Date Time Temp Pulse Resp B/P (MAP) Pulse Ox O2 Delivery O2 Flow Rate FiO2 11/01/18 16:00 97.2 113 20 110/77 (88) 97 11/01/18 16:00 110 11/01/18 12:00 97.5 108 20 112/69 (83) 95 11/01/18 12:00 108 11/01/18 09:08 115 119/78 11/01/18 09:00 Room Air 11/01/18 09:00 119/78 11/01/18 08:00 97.6 115 22 119/78 (92) 97 11/01/18 08:00 117 11/01/18 04:00 107 11/01/18 04:00 98.0 113 19 117/84 (95) 97 11/01/18 00:00 98.6 114 22 110/72 (85) 98 11/01/18 00:00 115 10/31/18 21:00 Nasal Cannula 2.0 10/31/18 20:49 121 105/80 10/31/18 20:13 111 18 95 Room Air 21 10/31/18 20:00 98.3 121 20 115/70 (85) 95 10/31/18 20:00 110 Intake and Output 10/31/18 11/01/18 19:00 07:00 Intake Total 800 ml Balance 800 ml Intake Oral 800 ml # Voids 6 2 Laboratory Tests 11/01/18 06:14: White Blood Count 4.8, Red Blood Count 4.79, Hemoglobin 14.6, Hematocrit 45.4, Mean Corpuscular Volume 95, Mean Corpuscular Hemoglobin 30.4, Mean Corpuscular Hemoglobin Concent 32.1, Red Cell Distribution Width 14.2, Platelet Count 171, Mean Platelet Volume 8.6, Neutrophils (%) (Auto) 42.0L, Lymphocytes (%) (Auto) 39.3, Monocytes (%) (Auto) 13.7H, Eosinophils (%) (Auto) 3.6H, Basophils (%) ( Auto) 1.5, Sodium Level 144, Potassium Level 3.8, Chloride Level 106, Carbon Dioxide Level 31, Anion Gap 7, Blood Urea Nitrogen 24H, Creatinine 1.1, Estimat Glomerular Filtration Rate > 60, Glucose Level 82, Calcium Level 9.1, Phosphorus Level 2.8, Magnesium Level 2.0, Total Bilirubin 1.0, Direct Bilirubin 0.3, Aspartate Amino Transf (AST/SGOT) 34, Alanine Aminotransferase ( ALT/SGPT) 36, Alkaline Phosphatase 115, Total Protein 6.1L, Albumin 2.8L Current Medications Medications (Trade) Dose Ordered Sig/Judah Route PRN Reason Start Time Stop Time Status Last Admin Dose Admin Carvedilol (Coreg) 6.25 mg EVERY 12 HOURS ORAL 11/01/18 21:00 11/26/18 20:59 Docusate Sodium (Colace) 100 mg TID ORAL 11/01/18 13:00 11/26/18 17:59 11/01/18 17:21 Furosemide (Lasix) 40 mg EVERY 12 HOURS ORAL 11/01/18 21:00 12/01/18 20:59 Heparin Sodium (Porcine) (Heparin 5000 units/ml) 5,000 units EVERY 12 HOURS SUBQ 10/28/18 09:00 11/26/18 08:59 10/31/18 20:49 Lisinopril (Zestril) 5 mg DAILY ORAL 11/02/18 09:00 12/02/18 08:59 Olanzapine (ZyPREXA Zydis) 20 mg DAILY@1700 ORAL 10/30/18 17:00 11/29/18 16:59 11/01/18 17:25 Pantoprazole (Protonix) 40 mg ACBREAKFAST ORAL 10/29/18 06:30 11/27/18 06:29 11/01/18 05:48 Spironolactone (Aldactone) 25 mg DAILY ORAL 10/28/18 09:00 11/27/18 08:59 11/01/18 09:08 Thiamine HCl (Vitamin B1) 100 mg DAILY ORAL 10/28/18 09:00 11/26/18 08:59 11/01/18 09:07 Lexa El MD Nov 01, 2018 18:55
--- NOTE | 2018-11-01 19:30 | NUR ---
HAND-OFF: Report given to CINTHYA Horan. Pt. in stable condition. Plan of care endorsed.
--- NOTE | 2018-11-01 19:31 | NUR ---
NURSE NOTES: Received bedside report from CINTHYA Adler.Patient stable,no c/o pain,no respiratory distress at this time,A&Ox3-4, ST on conveyor monitor,tolerated r/air well,no IV site,MD aware,charge nurse aware,BS active in all quadrants,bed secured in a low safety position,call light within a reach,will continue to monitor and follow POC.
[2018-11-01 20:00] VITALS: BP 109/75
[2018-11-01] MEDS: Carvedilol 6.25mg Tab ORAL SCH (20:57)
[2018-11-01] MEDS: Furosemide 40mg tab ORAL SCH (20:58)
--- NOTE | 2018-11-01 20:59 | General Progress Note ---
Assessment/Plan Problem List: (1) Pericardial effusion ICD Codes: I31.3 - Pericardial effusion (noninflammatory) SNOMED: 945754353 (2) CHF (congestive heart failure) ICD Codes: I50.9 - Heart failure, unspecified SNOMED: 08050111 (3) Pleural effusion ICD Codes: J90 - Pleural effusion, not elsewhere classified SNOMED: 57465135 (4) Pneumonia ICD Codes: J18.9 - Pneumonia, unspecified organism SNOMED: 789294276 (5) AMRIT (acute kidney injury) ICD Codes: N17.9 - Acute kidney failure, unspecified SNOMED: 7850916, 14622877 (6) Abnormal LFTs ICD Codes: R94.5 - Abnormal results of liver function studies SNOMED: 527942252 Status: stable, progressing Assessment/Plan: pna afebrile no sbo reviewed chart leg edema pleural effusion pna chf improving fluid overload Subjective ROS Limited/Unobtainable: Yes Allergies: Coded Allergies: No Known Allergies (Unverified , 10/26/18) Objective Last 24 Hour Vital Signs Date Time Temp Pulse Resp B/P (MAP) Pulse Ox O2 Delivery O2 Flow Rate FiO2 11/01/18 16:00 97.2 113 20 110/77 (88) 97 11/01/18 16:00 110 11/01/18 12:00 97.5 108 20 112/69 (83) 95 11/01/18 12:00 108 11/01/18 09:08 115 119/78 11/01/18 09:00 Room Air 11/01/18 09:00 119/78 11/01/18 08:00 97.6 115 22 119/78 (92) 97 11/01/18 08:00 117 11/01/18 04:00 107 11/01/18 04:00 98.0 113 19 117/84 (95) 97 11/01/18 00:00 98.6 114 22 110/72 (85) 98 11/01/18 00:00 115 10/31/18 21:00 Nasal Cannula 2.0 Intake and Output 10/31/18 11/01/18 19:00 07:00 Intake Total 800 ml Balance 800 ml Intake Oral 800 ml # Voids 6 2 Laboratory Tests 11/01/18 06:14: White Blood Count 4.8, Red Blood Count 4.79, Hemoglobin 14.6, Hematocrit 45.4, Mean Corpuscular Volume 95, Mean Corpuscular Hemoglobin 30.4, Mean Corpuscular Hemoglobin Concent 32.1, Red Cell Distribution Width 14.2, Platelet Count 171, Mean Platelet Volume 8.6, Neutrophils (%) (Auto) 42.0L, Lymphocytes (%) (Auto) 39.3, Monocytes (%) (Auto) 13.7H, Eosinophils (%) (Auto) 3.6H, Basophils (%) ( Auto) 1.5, Sodium Level 144, Potassium Level 3.8, Chloride Level 106, Carbon Dioxide Level 31, Anion Gap 7, Blood Urea Nitrogen 24H, Creatinine 1.1, Estimat Glomerular Filtration Rate > 60, Glucose Level 82, Calcium Level 9.1, Phosphorus Level 2.8, Magnesium Level 2.0, Total Bilirubin 1.0, Direct Bilirubin 0.3, Aspartate Amino Transf (AST/SGOT) 34, Alanine Aminotransferase ( ALT/SGPT) 36, Alkaline Phosphatase 115, Total Protein 6.1L, Albumin 2.8L Height (Feet): 5 Height (Inches): 11.00 Weight (Pounds): 160 Cardiovascular: normal rate Respiratory/Chest: lungs clear Abdomen: soft Cate Gonzales MD Nov 01, 2018 20:59
[2018-11-02] VITALS: BP 100/64
[2018-11-02 04:00] VITALS: BP 125/93
[2018-11-02 06:52] LABS: BASOPHILS % (AUTO) 1.4 % (0.0-2.0); EOSINOPHILS % (AUTO) 2.9 % (0.0-3.0); HEMATOCRIT 48.4 % (42.0-52.0); HEMOGLOBIN 15.3 G/DL (14.2-18.0); LYMPHOCYTES % (AUTO) 36.4 % (20.0-45.0); MEAN CORPUSCULAR VOLUME 95 FL (80-99); MONOCYTES % (AUTO) 13.9 % (1.0-10.0); NEUTROPHILS % (AUTO) 45.4 % (45.0-75.0); PLATELET COUNT 189 K/UL (150-450); RED BLOOD COUNT 5.08 M/UL (4.70-6.10); RED CELL DISTRIBUTION WIDTH 14.3 % (11.6-14.8); WHITE BLOOD COUNT 5.5 K/UL (4.8-10.8)
--- NOTE | 2018-11-02 07:12 | NUR ---
HAND-OFF: Report given to Vickey DawsonPatient stable.
--- NOTE | 2018-11-02 07:12 | NUR ---
NURSE NOTES: Report received from Marline MENDES. Pt. AOx4. Standing at bedside, having breakfast. Pt on room air and denies SOB. No acute distress noted. Bed in its lowest position, side rails upx2 and locked. Call light within easy reach. Will continue to plan of care.
[2018-11-02 07:21] LABS: ALANINE AMINOTRANSFERASE 39 U/L (12-78); ALBUMIN 3.1 G/DL (3.4-5.0); ALBUMIN/GLOBULIN RATIO 0.9 (1.0-2.7); ALKALINE PHOSPHATASE 135 U/L (46-116); ANION GAP 6 mmol/L (5-15); ASPARTATE AMINO TRANSFERASE 30 U/L (15-37); BLOOD UREA NITROGEN 30 mg/dL (7-18); CALCIUM 9.1 MG/DL (8.5-10.1); CARBON DIOXIDE 31 MMOL/L (21-32); CHLORIDE 108 MMOL/L (98-107); CREATININE 1.3 MG/DL (0.55-1.30); POTASSIUM 3.8 MMOL/L (3.5-5.1); SODIUM 145 MMOL/L (136-145)
[2018-11-02 08:00] VITALS: BP 120/79
--- NOTE | 2018-11-02 08:26 | General Progress Note ---
Assessment/Plan Problem List: (1) CHF (congestive heart failure) ICD Codes: I50.9 - Heart failure, unspecified SNOMED: 87551047 (2) Pericardial effusion ICD Codes: I31.3 - Pericardial effusion (noninflammatory) SNOMED: 774985925 (3) Pleural effusion ICD Codes: J90 - Pleural effusion, not elsewhere classified SNOMED: 06244787 (4) Pneumonia ICD Codes: J18.9 - Pneumonia, unspecified organism SNOMED: 759855118 (5) AMRIT (acute kidney injury) ICD Codes: N17.9 - Acute kidney failure, unspecified SNOMED: 6400656, 41996282 Status: stable, progressing Assessment/Plan: (1) Abnormal LFTs ICD Codes: R94.5 - Abnormal results of liver function studies SNOMED: 371862711 (2) Pleural effusion ICD Codes: J90 - Pleural effusion, not elsewhere classified SNOMED: 53631504 Status: stable, unchanged Assessment/Plan US reviewed >> Cholelithiasis. Gallbladder wall thickening. Negative for dilated bile ducts. Liver has normal echogenicity. drug screen negative Hepatitis panel negative symptomatic treatment fu pulm and cardiology recs bowel regime zofran prn ppi follow labs Subjective ROS Limited/Unobtainable: No Allergies: Coded Allergies: No Known Allergies (Unverified , 10/26/18) Subjective c/o SOB Objective Last 24 Hour Vital Signs Date Time Temp Pulse Resp B/P (MAP) Pulse Ox O2 Delivery O2 Flow Rate FiO2 11/02/18 04:00 97.7 125 18 125/93 (104) 96 11/02/18 04:00 120 11/02/18 03:29 120 11/02/18 00:00 97.5 116 16 100/64 (76) 96 11/01/18 23:31 114 11/01/18 20:57 95 109/75 11/01/18 20:00 97.8 115 20 109/75 (86) 95 11/01/18 19:35 119 11/01/18 16:00 97.2 113 20 110/77 (88) 97 11/01/18 16:00 110 11/01/18 12:00 97.5 108 20 112/69 (83) 95 11/01/18 12:00 108 11/01/18 09:08 115 119/78 11/01/18 09:00 Room Air 11/01/18 09:00 119/78 Intake and Output 11/01/18 11/02/18 19:00 07:00 Intake Total 1520 ml 240 ml Output Total 1101 ml Balance 419 ml 240 ml Intake Oral 1520 ml 240 ml Output Urine Total 1101 ml # Voids 7 2 Laboratory Tests 11/02/18 05:29: White Blood Count 5.5, Red Blood Count 5.08, Hemoglobin 15.3, Hematocrit 48.4, Mean Corpuscular Volume 95, Mean Corpuscular Hemoglobin 30.1, Mean Corpuscular Hemoglobin Concent 31.6L, Red Cell Distribution Width 14.3, Platelet Count 189, Mean Platelet Volume 7.9, Neutrophils (%) (Auto) 45.4, Lymphocytes (%) (Auto) 36.4, Monocytes (%) (Auto) 13.9H, Eosinophils (%) (Auto) 2.9, Basophils (%) ( Auto) 1.4, Sodium Level 145, Potassium Level 3.8, Chloride Level 108H, Carbon Dioxide Level 31, Anion Gap 6, Blood Urea Nitrogen 30H, Creatinine 1.3, Estimat Glomerular Filtration Rate 55.9, Glucose Level 100, Calcium Level 9.1, Total Bilirubin 1.0, Aspartate Amino Transf (AST/SGOT) 30, Alanine Aminotransferase ( ALT/SGPT) 39, Alkaline Phosphatase 135H, Total Protein 6.7, Albumin 3.1L, Globulin 3.6, Albumin/Globulin Ratio 0.9L Height (Feet): 5 Height (Inches): 11.00 Weight (Pounds): 154 General Appearance: no apparent distress EENT: normal ENT inspection Neck: supple Cardiovascular: normal rate Respiratory/Chest: decreased breath sounds Abdomen: normal bowel sounds, non tender, soft Extremities: non-tender Danny Natarajan MD Nov 02, 2018 08:26
[2018-11-02] MEDS: Carvedilol 6.25mg Tab ORAL SCH (08:57)
[2018-11-02] MEDS: Thiamine 100mg tab ORAL SCH (08:58)
[2018-11-02] MEDS: Lisinopril 2.5mg tab ORAL SCH (08:58)
[2018-11-02] MEDS: Spironolactone 25mg tab ORAL SCH (08:58)
[2018-11-02] MEDS: Docusate 100mg cap ORAL SCH ×3 (08:58→17:26)
[2018-11-02] MEDS: Furosemide 40mg tab ORAL SCH ×2 (08:59→20:44)
[2018-11-02] MEDS: Heparin 5000 units/ml inj SUBQ SCH ×2 (09:00→20:45)
--- NOTE | 2018-11-02 10:20 | Hematology/Onc Progress Note ---
Assessment/Plan Assessment/Plan # Elevated d-dimer on admission - have reviewed imaging, can be elevated in setting of acute exacerbation of chf, the nuclear v/q scan was negative --> v/q scan was indeterminate pe probability --> venous duplex negative --> unlikely indicator in this setting of vte even --> on sq heparin # Coagulopathy in the setting of fluid overload --> likely inr is elevated due to above --> periodically recheck inr/pt --> 10/26 inr 1.2 # Anemia of chronic disease --> hgb currently >12, no w/u needed at this time --> likely chf related, multifactorial process --> trend as needed # Right sided Pulmonary Infiltrates s/o Pneumonia --> diuresis as per pulm --> very poor compliant --> is on abx ctx/doxy--> per id off abx # Right pleural effusion --> thora prn # AMRIT (acute kidney injury) --> per renal # Small Pericardial effusion # Pna -- s/p abx # noncompliance # Dvt ppx with heparin sq The timing of this note does not necessarily reflect the time of the patient was seen. Greatly appreciate consultation. Subjective Allergies: Coded Allergies: No Known Allergies (Unverified , 10/26/18) Subjective 10/29: no bleeding, no chills, cbc stable, d-dimer elevated before, sob better 10/30: no night sweats, labs have been reviewed, inr was alex, refusing meds 11/01: as per cards, may need cath, no f/c, eating this am 11/02: awake and alert, no acute events, no sob, afebrile Objective Objective Current Medications Medications (Trade) Dose Ordered Sig/Judah Route PRN Reason Start Time Stop Time Status Last Admin Dose Admin Carvedilol (Coreg) 6.25 mg EVERY 12 HOURS ORAL 11/01/18 21:00 11/26/18 20:59 11/02/18 08:57 Docusate Sodium (Colace) 100 mg TID ORAL 11/01/18 13:00 11/26/18 17:59 11/02/18 08:58 Furosemide (Lasix) 40 mg EVERY 12 HOURS ORAL 11/01/18 21:00 12/01/18 20:59 11/02/18 08:59 Heparin Sodium (Porcine) (Heparin 5000 units/ml) 5,000 units EVERY 12 HOURS SUBQ 10/28/18 09:00 11/26/18 08:59 11/01/18 20:59 Lisinopril (Zestril) 5 mg DAILY ORAL 11/02/18 09:00 12/02/18 08:59 11/02/18 08:58 Olanzapine (ZyPREXA Zydis) 20 mg DAILY@1700 ORAL 10/30/18 17:00 11/29/18 16:59 11/01/18 17:25 Pantoprazole (Protonix) 40 mg ACBREAKFAST ORAL 10/29/18 06:30 11/27/18 06:29 11/02/18 05:38 Spironolactone (Aldactone) 25 mg DAILY ORAL 10/28/18 09:00 11/27/18 08:59 11/02/18 08:58 Thiamine HCl (Vitamin B1) 100 mg DAILY ORAL 10/28/18 09:00 11/26/18 08:59 11/02/18 08:58 Last 24 Hour Vital Signs Date Time Temp Pulse Resp B/P (MAP) Pulse Ox O2 Delivery O2 Flow Rate FiO2 11/02/18 08:58 120/79 11/02/18 08:57 127 120/79 11/02/18 08:00 122 11/02/18 08:00 98.3 127 18 120/79 (93) 98 11/02/18 04:00 97.7 125 18 125/93 (104) 96 11/02/18 04:00 120 11/02/18 03:29 120 11/02/18 00:00 97.5 116 16 100/64 (76) 96 11/01/18 23:31 114 11/01/18 20:57 95 109/75 11/01/18 20:00 97.8 115 20 109/75 (86) 95 11/01/18 19:35 119 11/01/18 16:00 97.2 113 20 110/77 (88) 97 11/01/18 16:00 110 11/01/18 12:00 97.5 108 20 112/69 (83) 95 11/01/18 12:00 108 11/01/18 09:08 115 119/78 11/01/18 09:00 Room Air 9/9/19 09:00 119/78 11/01/18 08:00 97.6 115 22 119/78 (92) 97 11/01/18 08:00 117 11/01/18 04:00 107 11/01/18 04:00 98.0 113 19 117/84 (95) 97 11/01/18 00:00 98.6 114 22 110/72 (85) 98 11/01/18 00:00 115 10/31/18 21:00 Nasal Cannula 2.0 10/31/18 20:49 121 105/80 10/31/18 20:13 111 18 95 Room Air 21 10/31/18 20:00 98.3 121 20 115/70 (85) 95 10/31/18 20:00 110 10/31/18 16:00 98.0 110 22 115/70 (85) 98 10/31/18 16:00 114 10/31/18 12:00 98.0 108 20 113/71 (85) 97 10/31/18 12:00 117 Intake and Output 11/01/18 11/02/18 19:00 07:00 Intake Total 1520 ml 240 ml Output Total 1101 ml Balance 419 ml 240 ml Intake Oral 1520 ml 240 ml Output Urine Total 1101 ml # Voids 7 2 Labs Test 10/31/18 05:50 11/01/18 06:14 11/02/18 05:29 White Blood Count 5.7 K/UL (4.8-10.8) 4.8 K/UL (4.8-10.8) 5.5 K/UL (4.8-10.8) Red Blood Count 5.19 M/UL (4.70-6.10) 4.79 M/UL (4.70-6.10) 5.08 M/UL (4.70-6.10) Hemoglobin 15.6 G/DL (14.2-18.0) 14.6 G/DL (14.2-18.0) 15.3 G/DL (14.2-18.0) Hematocrit 49.1 % (42.0-52.0) 45.4 % (42.0-52.0) 48.4 % (42.0-52.0) Mean Corpuscular Volume 95 FL (80-99) 95 FL (80-99) 95 FL (80-99) Mean Corpuscular Hemoglobin 30.2 PG (27.0-31.0) 30.4 PG (27.0-31.0) 30.1 PG (27.0-31.0) Mean Corpuscular Hemoglobin Concent 31.8 G/DL (32.0-36.0) 32.1 G/DL (32.0-36.0) 31.6 G/DL (32.0-36.0) Red Cell Distribution Width 14.0 % (11.6-14.8) 14.2 % (11.6-14.8) 14.3 % (11.6-14.8) Platelet Count 176 K/UL (150-450) 171 K/UL (150-450) 189 K/UL (150-450) Mean Platelet Volume 8.7 FL (6.5-10.1) 8.6 FL (6.5-10.1) 7.9 FL (6.5-10.1) Neutrophils (%) (Auto) 57.8 % (45.0-75.0) 42.0 % (45.0-75.0) 45.4 % (45.0-75.0) Lymphocytes (%) (Auto) 27.1 % (20.0-45.0) 39.3 % (20.0-45.0) 36.4 % (20.0-45.0) Monocytes (%) (Auto) 11.3 % (1.0-10.0) 13.7 % (1.0-10.0) 13.9 % (1.0-10.0) Eosinophils (%) (Auto) 2.2 % (0.0-3.0) 3.6 % (0.0-3.0) 2.9 % (0.0-3.0) Basophils (%) (Auto) 1.7 % (0.0-2.0) 1.5 % (0.0-2.0) 1.4 % (0.0-2.0) Sodium Level 144 MMOL/L (136-145) 144 MMOL/L (136-145) 145 MMOL/L (136-145) Potassium Level 3.7 MMOL/L (3.5-5.1) 3.8 MMOL/L (3.5-5.1) 3.8 MMOL/L (3.5-5.1) Chloride Level 106 MMOL/L (98-107) 106 MMOL/L (98-107) 108 MMOL/L (98-107) Carbon Dioxide Level 34 MMOL/L (21-32) 31 MMOL/L (21-32) 31 MMOL/L (21-32) Anion Gap 4 mmol/L (5-15) 7 mmol/L (5-15) 6 mmol/L (5-15) Blood Urea Nitrogen 22 mg/dL (7-18) 24 mg/dL (7-18) 30 mg/dL (7-18) Creatinine 1.3 MG/DL (0.55-1.30) 1.1 MG/DL (0.55-1.30) 1.3 MG/DL (0.55-1.30) Estimat Glomerular Filtration Rate 55.9 mL/min (>60) > 60 mL/min (>60) 55.9 mL/min (>60) Glucose Level 87 MG/DL (74-106) 82 MG/DL (74-106) 100 MG/DL (74-106) Calcium Level 9.0 MG/DL (8.5-10.1) 9.1 MG/DL (8.5-10.1) 9.1 MG/DL (8.5-10.1) Phosphorus Level 2.8 MG/DL (2.5-4.9) Magnesium Level 2.0 MG/DL (1.8-2.4) Total Bilirubin 1.0 MG/DL (0.2-1.0) 1.0 MG/DL (0.2-1.0) Direct Bilirubin 0.3 MG/DL (0.0-0.3) Aspartate Amino Transf (AST/SGOT) 34 U/L (15-37) 30 U/L (15-37) Alanine Aminotransferase (ALT/SGPT) 36 U/L (12-78) 39 U/L (12-78) Alkaline Phosphatase 115 U/L (46-116) 135 U/L (46-116) Total Protein 6.1 G/DL (6.4-8.2) 6.7 G/DL (6.4-8.2) Albumin 2.8 G/DL (3.4-5.0) 3.1 G/DL (3.4-5.0) Globulin 3.6 g/dL Albumin/Globulin Ratio 0.9 (1.0-2.7) Height (Feet): 5 Height (Inches): 11.00 Weight (Pounds): 154 Objective Vitals: reviewed General Appearance: NAD HEENT: normocephalic, atraumatic Neck: non-tender, normal alignment Respiratory/Chest: ++ bilateral crackles noted on exam Cardiovascular/Chest: normal peripheral pulses, normal rate Abdomen: normal bowel sounds, soft Ext: 2+ edema lower ext noted Duncan Pereira MD Nov 02, 2018 10:20
--- NOTE | 2018-11-02 10:34 | Cardiac Electrophysiology PN ---
Assessment/Plan Assessment/Plan 1. Shortness of breath and severe lower extremity edema with elevated BNP of 18, 000 due to CHF and EF only 20 % Continue Lasix, Coreg, lisinopril, Aldactone. Change IV Lasix to po Need cardiac catheterization for further evaluation of his coronaries if he agrees and if insurance approves 2. Complete left bundle-branch block. Watch the patient on telemetry. 3. Pleural effusion. S/P 850cc Right thoracentesis. 4. Schizophrenia, on Zyprexa ALYSIA RN Subjective Subjective Much calmer and compliant today. No events Objective Last 24 Hour Vital Signs Date Time Temp Pulse Resp B/P (MAP) Pulse Ox O2 Delivery O2 Flow Rate FiO2 11/02/18 08:58 120/79 11/02/18 08:57 127 120/79 11/02/18 08:00 122 11/02/18 08:00 98.3 127 18 120/79 (93) 98 11/02/18 04:00 97.7 125 18 125/93 (104) 96 11/02/18 04:00 120 11/02/18 03:29 120 11/02/18 00:00 97.5 116 16 100/64 (76) 96 11/01/18 23:31 114 11/01/18 20:57 95 109/75 11/01/18 20:00 97.8 115 20 109/75 (86) 95 11/01/18 19:35 119 11/01/18 16:00 97.2 113 20 110/77 (88) 97 11/01/18 16:00 110 11/01/18 12:00 97.5 108 20 112/69 (83) 95 11/01/18 12:00 108 Intake and Output 11/01/18 11/02/18 19:00 07:00 Intake Total 1520 ml 240 ml Output Total 1101 ml Balance 419 ml 240 ml Intake Oral 1520 ml 240 ml Output Urine Total 1101 ml # Voids 7 2 Laboratory Tests Test 11/02/18 05:29 White Blood Count 5.5 K/UL (4.8-10.8) Red Blood Count 5.08 M/UL (4.70-6.10) Hemoglobin 15.3 G/DL (14.2-18.0) Hematocrit 48.4 % (42.0-52.0) Mean Corpuscular Volume 95 FL (80-99) Mean Corpuscular Hemoglobin 30.1 PG (27.0-31.0) Mean Corpuscular Hemoglobin Concent 31.6 G/DL (32.0-36.0) L Red Cell Distribution Width 14.3 % (11.6-14.8) Platelet Count 189 K/UL (150-450) Mean Platelet Volume 7.9 FL (6.5-10.1) Neutrophils (%) (Auto) 45.4 % (45.0-75.0) Lymphocytes (%) (Auto) 36.4 % (20.0-45.0) Monocytes (%) (Auto) 13.9 % (1.0-10.0) H Eosinophils (%) (Auto) 2.9 % (0.0-3.0) Basophils (%) (Auto) 1.4 % (0.0-2.0) Sodium Level 145 MMOL/L (136-145) Potassium Level 3.8 MMOL/L (3.5-5.1) Chloride Level 108 MMOL/L (98-107) H Carbon Dioxide Level 31 MMOL/L (21-32) Anion Gap 6 mmol/L (5-15) Blood Urea Nitrogen 30 mg/dL (7-18) H Creatinine 1.3 MG/DL (0.55-1.30) Estimat Glomerular Filtration Rate 55.9 mL/min (>60) Glucose Level 100 MG/DL (74-106) Calcium Level 9.1 MG/DL (8.5-10.1) Total Bilirubin 1.0 MG/DL (0.2-1.0) Aspartate Amino Transf (AST/SGOT) 30 U/L (15-37) Alanine Aminotransferase (ALT/SGPT) 39 U/L (12-78) Alkaline Phosphatase 135 U/L (46-116) H Total Protein 6.7 G/DL (6.4-8.2) Albumin 3.1 G/DL (3.4-5.0) L Globulin 3.6 g/dL Albumin/Globulin Ratio 0.9 (1.0-2.7) L Objective HEAD AND NECK: Shows positive JVD. LUNGS: Decreased breath sounds. CARDIOVASCULAR: Regular S1 and S2 with no gallop. ABDOMEN: Soft. EXTREMITIES: 1+ pitting edema up Teofilo Rollins MD Nov 02, 2018 10:34
--- NOTE | 2018-11-02 11:31 | Infectious Diseases Prog Note ---
Assessment/Plan Assessment/Plan IMPRESSION: 1. Community-acquired pneumonia.treated 2. Systolic CHF, EF =20-25% 3. Acute kidney failure.improving 4. Schizophrenia. 5. Proteinuria. 6. Hepatomegaly 7. Portal hypertension 8. LBBB 9. Pleural effusion RECOMMENDATION: Observe off antibiotic Subjective ROS Limited/Unobtainable: Yes Respiratory: Reports: no symptoms Cardiovascular: Reports: no symptoms Gastrointestinal/Abdominal: Reports: no symptoms Allergies: Coded Allergies: No Known Allergies (Unverified , 10/26/18) Objective Vital Signs Last 24 Hour Vital Signs Date Time Temp Pulse Resp B/P (MAP) Pulse Ox O2 Delivery O2 Flow Rate FiO2 11/02/18 08:58 120/79 11/02/18 08:57 127 120/79 11/02/18 08:00 122 11/02/18 08:00 98.3 127 18 120/79 (93) 98 11/02/18 04:00 97.7 125 18 125/93 (104) 96 11/02/18 04:00 120 11/02/18 03:29 120 11/02/18 00:00 97.5 116 16 100/64 (76) 96 11/01/18 23:31 114 11/01/18 20:57 95 109/75 11/01/18 20:00 97.8 115 20 109/75 (86) 95 11/01/18 19:35 119 11/01/18 16:00 97.2 113 20 110/77 (88) 97 11/01/18 16:00 110 11/01/18 12:00 97.5 108 20 112/69 (83) 95 11/01/18 12:00 108 Height (Feet): 5 Height (Inches): 11.00 Weight (Pounds): 154 HEENT: mucous membranes moist Respiratory/Chest: lungs clear Cardiovascular: tachycardia Abdomen: soft, non tender Extremities: other - edema of legs Neurologic/Psychiatric: alert, responsive Laboratory Tests Test 11/02/18 05:29 White Blood Count 5.5 K/UL (4.8-10.8) Red Blood Count 5.08 M/UL (4.70-6.10) Hemoglobin 15.3 G/DL (14.2-18.0) Hematocrit 48.4 % (42.0-52.0) Mean Corpuscular Volume 95 FL (80-99) Mean Corpuscular Hemoglobin 30.1 PG (27.0-31.0) Mean Corpuscular Hemoglobin Concent 31.6 G/DL (32.0-36.0) L Red Cell Distribution Width 14.3 % (11.6-14.8) Platelet Count 189 K/UL (150-450) Mean Platelet Volume 7.9 FL (6.5-10.1) Neutrophils (%) (Auto) 45.4 % (45.0-75.0) Lymphocytes (%) (Auto) 36.4 % (20.0-45.0) Monocytes (%) (Auto) 13.9 % (1.0-10.0) H Eosinophils (%) (Auto) 2.9 % (0.0-3.0) Basophils (%) (Auto) 1.4 % (0.0-2.0) Sodium Level 145 MMOL/L (136-145) Potassium Level 3.8 MMOL/L (3.5-5.1) Chloride Level 108 MMOL/L (98-107) H Carbon Dioxide Level 31 MMOL/L (21-32) Anion Gap 6 mmol/L (5-15) Blood Urea Nitrogen 30 mg/dL (7-18) H Creatinine 1.3 MG/DL (0.55-1.30) Estimat Glomerular Filtration Rate 55.9 mL/min (>60) Glucose Level 100 MG/DL (74-106) Calcium Level 9.1 MG/DL (8.5-10.1) Total Bilirubin 1.0 MG/DL (0.2-1.0) Aspartate Amino Transf (AST/SGOT) 30 U/L (15-37) Alanine Aminotransferase (ALT/SGPT) 39 U/L (12-78) Alkaline Phosphatase 135 U/L (46-116) H Total Protein 6.7 G/DL (6.4-8.2) Albumin 3.1 G/DL (3.4-5.0) L Globulin 3.6 g/dL Albumin/Globulin Ratio 0.9 (1.0-2.7) L Current Medications Medications (Trade) Dose Ordered Sig/Judah Route PRN Reason Start Time Stop Time Status Last Admin Dose Admin Carvedilol (Coreg) 6.25 mg EVERY 12 HOURS ORAL 11/01/18 21:00 11/26/18 20:59 11/02/18 08:57 Docusate Sodium (Colace) 100 mg TID ORAL 11/01/18 13:00 11/26/18 17:59 11/02/18 08:58 Furosemide (Lasix) 40 mg EVERY 12 HOURS ORAL 11/01/18 21:00 12/01/18 20:59 11/02/18 08:59 Heparin Sodium (Porcine) (Heparin 5000 units/ml) 5,000 units EVERY 12 HOURS SUBQ 10/28/18 09:00 11/26/18 08:59 11/01/18 20:59 Lisinopril (Zestril) 5 mg DAILY ORAL 11/02/18 09:00 12/02/18 08:59 11/02/18 08:58 Olanzapine (ZyPREXA Zydis) 20 mg DAILY@1700 ORAL 10/30/18 17:00 11/29/18 16:59 11/01/18 17:25 Pantoprazole (Protonix) 40 mg ACBREAKFAST ORAL 10/29/18 06:30 11/27/18 06:29 11/02/18 05:38 Spironolactone (Aldactone) 25 mg DAILY ORAL 10/28/18 09:00 11/27/18 08:59 11/02/18 08:58 Thiamine HCl (Vitamin B1) 100 mg DAILY ORAL 10/28/18 09:00 11/26/18 08:59 11/02/18 08:58 Geoffrey Velasquez MD Nov 02, 2018 11:31
--- NOTE | 2018-11-02 11:37 | Nephrology Progress Note ---
Assessment/Plan Problem List: (1) Cardiorenal syndrome (2) CHF (congestive heart failure) (3) Pericardial effusion (4) Pleural effusion (5) Abnormal LFTs Assessment Anasarca: likely cardiac and cardiomyopathy Has proteinuria Cr mildly elevated on admission now wnl h/o Schizophrenia Plan increase Coreg dose 2D Echo noted Abd KEIRA noted 24 H urine CrCl and Total Protein pending Monitor renal parameters TFT HgbA1c noted per current management optimize cardiac status Psych consult per PMD ( schizophrenia history- uncoaporative) echo: Mild left ventricular enlargement . Global left ventricular hypokinesis with anteroseptal dyskinesis ,ischemic cardiomyopathy can not be excluded . Left ventricular ejection fraction estimated to be 20-25%. KEIRA: To-and-fro flow within the main portal vein may indicate portal hypertension Hepatomegaly Ascites Cholelithiasis. Gallbladder wall thickening may be related to the hemodynamic changes causing the ascites, but the possibility of acute cholecystitis should also be considered. Consider hepatobiliary nuclear scan if there is high clinical suspicion Negative for dilated bile ducts Bilateral pleural effusions Subjective ROS Limited/Unobtainable: No Constitutional: Reports: malaise Objective Objective Last 24 Hour Vital Signs Date Time Temp Pulse Resp B/P (MAP) Pulse Ox O2 Delivery O2 Flow Rate FiO2 11/02/18 08:58 120/79 11/02/18 08:57 127 120/79 11/02/18 08:00 122 11/02/18 08:00 98.3 127 18 120/79 (93) 98 11/02/18 04:00 97.7 125 18 125/93 (104) 96 11/02/18 04:00 120 11/02/18 03:29 120 11/02/18 00:00 97.5 116 16 100/64 (76) 96 11/01/18 23:31 114 11/01/18 20:57 95 109/75 11/01/18 20:00 97.8 115 20 109/75 (86) 95 11/01/18 19:35 119 11/01/18 16:00 97.2 113 20 110/77 (88) 97 11/01/18 16:00 110 11/01/18 12:00 97.5 108 20 112/69 (83) 95 11/01/18 12:00 108 Intake and Output 11/01/18 11/02/18 19:00 07:00 Intake Total 1520 ml 240 ml Output Total 1101 ml Balance 419 ml 240 ml Intake Oral 1520 ml 240 ml Output Urine Total 1101 ml # Voids 7 2 Laboratory Tests 11/02/18 05:29: White Blood Count 5.5, Red Blood Count 5.08, Hemoglobin 15.3, Hematocrit 48.4, Mean Corpuscular Volume 95, Mean Corpuscular Hemoglobin 30.1, Mean Corpuscular Hemoglobin Concent 31.6L, Red Cell Distribution Width 14.3, Platelet Count 189, Mean Platelet Volume 7.9, Neutrophils (%) (Auto) 45.4, Lymphocytes (%) (Auto) 36.4, Monocytes (%) (Auto) 13.9H, Eosinophils (%) (Auto) 2.9, Basophils (%) ( Auto) 1.4, Sodium Level 145, Potassium Level 3.8, Chloride Level 108H, Carbon Dioxide Level 31, Anion Gap 6, Blood Urea Nitrogen 30H, Creatinine 1.3, Estimat Glomerular Filtration Rate 55.9, Glucose Level 100, Calcium Level 9.1, Total Bilirubin 1.0, Aspartate Amino Transf (AST/SGOT) 30, Alanine Aminotransferase ( ALT/SGPT) 39, Alkaline Phosphatase 135H, Total Protein 6.7, Albumin 3.1L, Globulin 3.6, Albumin/Globulin Ratio 0.9L Height (Feet): 5 Height (Inches): 11.00 Weight (Pounds): 154 General Appearance: no apparent distress Cardiovascular: tachycardia Respiratory/Chest: decreased breath sounds Abdomen: distended Objective no change Jasbir Corbin MD Nov 02, 2018 11:37
[2018-11-02 12:00] VITALS: BP 107/66
--- NOTE | 2018-11-02 12:23 | NUR ---
[employer] SI: ACUTE KIDNEY INJURY T. 98.3 HR 127 RR 18 B/P 120/79 BUN 30 ALT 135 IS: LASIX PO ZYVOX PO HEPARIN SUBC TELE STATUS
--- NOTE | 2018-11-02 13:32 | NUR ---
*-* INSURANCE *-* UPDATED CLINICALS AND REVIEW HAVE BEEN FAXED TO: [facility] MAYEM: RENÉ VINCENT# [id number] P: [phone] F: [phone] F# [phone] P: [phone] DISCHARGING NEEDS PLS CALL P: [phone]
--- NOTE | 2018-11-02 15:42 | Pulmonology Progress Note ---
Assessment/Plan Assessment/Plan Pulmonary Progress Note HPI Patient is a 63-year old man with admitted with shortness of breath, lower extremity and scrotal edema/pain. Denies cough, no chest pain. Noted to have features of CHF right lower lobe infiltrate/effusion. Symptoms is been present for at least a week. He notes worsening exertional dyspnea, diffuse swelling, has some pain with urination. Denies any medical history including heart disease, CHF, COPD. He does smoke and states he quit 1 week ago. Denies alcohol use. Denies any recent fevers, chills, vomiting, diarrhea. No new complaints, ambulating well PMH: Schizophrenia Allergies: NKDA Social Hx: Uses tobacco. Denies drugs or alcohol All Other Systems: negative except mentioned in HPI Physical Exam Vital Signs Noted General: Awake and alert, note distressed on oxygen HEENT: NCAT. EOMI. Neck: Supple, No LN Chest Wall: No tenderness, no deformity Cardiovascular: Tachycardic. RRR. S1 and S2 normal. No murmur noted. Resp: Basal crackles bilaterally. No wheezing. Reduced right basal BS Abdomen: Abdomen is distended. Nontender to palpation. Diffuse anasarca Skin: Diffuse anasarca over the entire abdomen and over the lower extremities bilaterally. Testicular enlargement. MSK: Normal tone and bulk. Moving all extremities. No obvious deformity. Neuro: Awake and alert. No focal signs. Bedside Echo in ED: Findings include cardiomegaly, trace pericardial effusion without significant right ventricle or right atrial collapse. Left ventricle appears somewhat enlarged. Impression: Congestive Heart Failure Right sided Pulmonary Infiltrates s/o Pneumonia Right pleural effusion AMRIT (acute kidney injury) Small Pericardial effusion Plan: Diurese PRN Ceftraixone/Doxycycline Monitor labs PPX O2 PRN Thoracent[address] ST evaluation R/O DVT Laboratory Tests Noted EKG: Rate: tachycardiac Rhythm: NSR, Sinus tachycardia rate 115 bpm, prolonged QTC at 522 ms, normal axis. Low voltage in the limb leads and left bundle branch block pattern in the precordial leads. Chest X-Ray: Cardiomegaly, bilateral congestion, RLL effusion, questionable infiltrate in the right lower lobe Subjective ROS Limited/Unobtainable: No Allergies: Coded Allergies: No Known Allergies (Unverified , 10/26/18) Objective Last 24 Hour Vital Signs Date Time Temp Pulse Resp B/P (MAP) Pulse Ox O2 Delivery O2 Flow Rate FiO2 11/02/18 12:00 97.0 105 22 107/66 (80) 95 11/02/18 12:00 104 11/02/18 08:58 120/79 11/02/18 08:57 127 120/79 11/02/18 08:00 122 11/02/18 08:00 98.3 127 18 120/79 (93) 98 11/02/18 04:00 97.7 125 18 125/93 (104) 96 11/02/18 04:00 120 11/02/18 03:29 120 11/02/18 00:00 97.5 116 16 100/64 (76) 96 11/01/18 23:31 114 11/01/18 20:57 95 109/75 11/01/18 20:00 97.8 115 20 109/75 (86) 95 11/01/18 19:35 119 11/01/18 16:00 97.2 113 20 110/77 (88) 97 11/01/18 16:00 110 Intake and Output 11/01/18 11/02/18 19:00 07:00 Intake Total 1520 ml 240 ml Output Total 1101 ml Balance 419 ml 240 ml Intake Oral 1520 ml 240 ml Output Urine Total 1101 ml # Voids 7 2 Laboratory Tests 11/02/18 05:29: White Blood Count 5.5, Red Blood Count 5.08, Hemoglobin 15.3, Hematocrit 48.4, Mean Corpuscular Volume 95, Mean Corpuscular Hemoglobin 30.1, Mean Corpuscular Hemoglobin Concent 31.6L, Red Cell Distribution Width 14.3, Platelet Count 189, Mean Platelet Volume 7.9, Neutrophils (%) (Auto) 45.4, Lymphocytes (%) (Auto) 36.4, Monocytes (%) (Auto) 13.9H, Eosinophils (%) (Auto) 2.9, Basophils (%) ( Auto) 1.4, Sodium Level 145, Potassium Level 3.8, Chloride Level 108H, Carbon Dioxide Level 31, Anion Gap 6, Blood Urea Nitrogen 30H, Creatinine 1.3, Estimat Glomerular Filtration Rate 55.9, Glucose Level 100, Calcium Level 9.1, Total Bilirubin 1.0, Aspartate Amino Transf (AST/SGOT) 30, Alanine Aminotransferase ( ALT/SGPT) 39, Alkaline Phosphatase 135H, Total Protein 6.7, Albumin 3.1L, Globulin 3.6, Albumin/Globulin Ratio 0.9L Current Medications Medications (Trade) Dose Ordered Sig/Judah Route PRN Reason Start Time Stop Time Status Last Admin Dose Admin Carvedilol (Coreg) 12.5 mg EVERY 12 HOURS ORAL 11/02/18 21:00 11/26/18 20:59 Docusate Sodium (Colace) 100 mg TID ORAL 11/01/18 13:00 11/26/18 17:59 11/02/18 08:58 Furosemide (Lasix) 40 mg EVERY 12 HOURS ORAL 11/01/18 21:00 12/01/18 20:59 11/02/18 08:59 Heparin Sodium (Porcine) (Heparin 5000 units/ml) 5,000 units EVERY 12 HOURS SUBQ 10/28/18 09:00 11/26/18 08:59 11/01/18 20:59 Lisinopril (Zestril) 5 mg DAILY ORAL 11/02/18 09:00 12/02/18 08:59 11/02/18 08:58 Olanzapine (ZyPREXA Zydis) 20 mg DAILY@1700 ORAL 10/30/18 17:00 11/29/18 16:59 11/01/18 17:25 Pantoprazole (Protonix) 40 mg ACBREAKFAST ORAL 10/29/18 06:30 11/27/18 06:29 11/02/18 05:38 Spironolactone (Aldactone) 25 mg DAILY ORAL 10/28/18 09:00 11/27/18 08:59 11/02/18 08:58 Thiamine HCl (Vitamin B1) 100 mg DAILY ORAL 10/28/18 09:00 11/26/18 08:59 11/02/18 08:58 Lexa El MD Nov 02, 2018 15:42
[2018-11-02 16:00] VITALS: BP 96/62
[2018-11-02] MEDS: ZyPREXA Zydis 10mg tab ORAL SCH (17:26)
--- NOTE | 2018-11-02 19:15 | NUR ---
HAND-OFF: Report given to Solange MENDES. Pt remains stable.
--- NOTE | 2018-11-02 19:23 | NUR ---
NURSE NOTES: Received patient from CINTHYA Jesus. Patient was sitting in chair, resting comfortably. No signs of acute distress or pain noted. AOx3-4, able to make needs known. Ambulates independently. No IV site noted, since patient is refusing IV access. Bed at lowest position, brakes on, siderails up x2, call light within reach. Will continue plan of care.
[2018-11-02 20:00] VITALS: BP 92/60
[2018-11-02] MEDS: Carvedilol 12.5mg tab ORAL SCH (20:25)
--- NOTE | 2018-11-02 21:30 | General Progress Note ---
Assessment/Plan Problem List: (1) Pericardial effusion ICD Codes: I31.3 - Pericardial effusion (noninflammatory) SNOMED: 870843717 (2) CHF (congestive heart failure) ICD Codes: I50.9 - Heart failure, unspecified SNOMED: 97679314 (3) Pleural effusion ICD Codes: J90 - Pleural effusion, not elsewhere classified SNOMED: 29749254 (4) Pneumonia ICD Codes: J18.9 - Pneumonia, unspecified organism SNOMED: 139966246 (5) AMRIT (acute kidney injury) ICD Codes: N17.9 - Acute kidney failure, unspecified SNOMED: 3763096, 90110175 (6) Abnormal LFTs ICD Codes: R94.5 - Abnormal results of liver function studies SNOMED: 020435789 Status: stable, progressing Assessment/Plan: non compliant no sob still has edema in le reviewed chart leg edema pleural effusion pna chf improving fluid overload Subjective ROS Limited/Unobtainable: Yes Allergies: Coded Allergies: No Known Allergies (Unverified , 10/26/18) Objective Last 24 Hour Vital Signs Date Time Temp Pulse Resp B/P (MAP) Pulse Ox O2 Delivery O2 Flow Rate FiO2 11/02/18 20:25 104 92/60 11/02/18 20:00 104 11/02/18 20:00 96.4 108 18 92/60 (71) 97 11/02/18 16:00 97.3 102 23 96/62 (73) 94 11/02/18 16:00 93 11/02/18 12:00 97.0 105 22 107/66 (80) 95 11/02/18 12:00 104 11/02/18 09:00 Room Air 11/02/18 08:58 120/79 11/02/18 08:57 127 120/79 11/02/18 08:00 122 11/02/18 08:00 98.3 127 18 120/79 (93) 98 11/02/18 04:00 97.7 125 18 125/93 (104) 96 11/02/18 04:00 120 11/02/18 03:29 120 11/02/18 00:00 97.5 116 16 100/64 (76) 96 11/01/18 23:31 114 Intake and Output 11/01/18 11/02/18 19:00 07:00 Intake Total 1520 ml 240 ml Output Total 1101 ml Balance 419 ml 240 ml Intake Oral 1520 ml 240 ml Output Urine Total 1101 ml # Voids 7 2 Laboratory Tests 11/02/18 05:29: White Blood Count 5.5, Red Blood Count 5.08, Hemoglobin 15.3, Hematocrit 48.4, Mean Corpuscular Volume 95, Mean Corpuscular Hemoglobin 30.1, Mean Corpuscular Hemoglobin Concent 31.6L, Red Cell Distribution Width 14.3, Platelet Count 189, Mean Platelet Volume 7.9, Neutrophils (%) (Auto) 45.4, Lymphocytes (%) (Auto) 36.4, Monocytes (%) (Auto) 13.9H, Eosinophils (%) (Auto) 2.9, Basophils (%) ( Auto) 1.4, Sodium Level 145, Potassium Level 3.8, Chloride Level 108H, Carbon Dioxide Level 31, Anion Gap 6, Blood Urea Nitrogen 30H, Creatinine 1.3, Estimat Glomerular Filtration Rate 55.9, Glucose Level 100, Calcium Level 9.1, Total Bilirubin 1.0, Aspartate Amino Transf (AST/SGOT) 30, Alanine Aminotransferase ( ALT/SGPT) 39, Alkaline Phosphatase 135H, Total Protein 6.7, Albumin 3.1L, Globulin 3.6, Albumin/Globulin Ratio 0.9L Height (Feet): 5 Height (Inches): 11.00 Weight (Pounds): 154 Cardiovascular: normal rate Respiratory/Chest: lungs clear Abdomen: soft Cate Gonzales MD Nov 02, 2018 21:30
[2018-11-03] VITALS: BP 107/71
--- NOTE | 2018-11-03 03:31 | NUR ---
NURSE NOTES: Patient is asleep lying semi-ash's; resting comfortably. No signs of acute distress or pain noted at this time.
[2018-11-03 04:00] VITALS: BP 112/76
--- NOTE | 2018-11-03 07:22 | NUR ---
HAND-OFF: Report given to CINTHYA Riddle. Patient is awake, lying semi-ash resting comfortably, in stable condition.
--- NOTE | 2018-11-03 07:41 | NUR ---
NURSE NOTES: Received report from Solange/RN, Patient is awake, lying semi-fowlers, resting comfortably. No signs of acute distress or pain noted at this time. Able to make needs known. No IV access at this time, MD aware. Bed at lowest position and locked, brakes on, side rails up x3, Call light within reach. Will continue plan of care.
[2018-11-03 08:00] VITALS: BP 106/66
--- NOTE | 2018-11-03 08:58 | Pulmonology Progress Note ---
Assessment/Plan Assessment/Plan Pulmonary Progress Note HPI Patient is a 63-year old man with admitted with shortness of breath, lower extremity and scrotal edema/pain. Denies cough, no chest pain. Noted to have features of CHF right lower lobe infiltrate/effusion. Symptoms is been present for at least a week. He notes worsening exertional dyspnea, diffuse swelling on admission which has improved. Denies any medical history including heart disease, CHF, COPD. He does smoke and states he quit 1 week ago. Denies alcohol use. Denies any recent fevers, chills, vomiting, diarrhea. No new complaints, ambulating well PMH: Schizophrenia Allergies: NKDA Social Hx: Uses tobacco. Denies drugs or alcohol All Other Systems: negative except mentioned in HPI Physical Exam Vital Signs Noted General: Awake and alert, note distressed on oxygen HEENT: NCAT. EOMI. Neck: Supple, No LN Chest Wall: No tenderness, no deformity Cardiovascular: Tachycardic. RRR. S1 and S2 normal. No murmur noted. Resp: CTAB Abdomen: Abdomen is distended. Nontender to palpation. Mild edema Skin: Diffuse anasarca over the entire abdomen and over the lower extremities bilaterally. Testicular enlargement. MSK: Normal tone and bulk. Moving all extremities. No obvious deformity. Neuro: Awake and alert. No focal signs. Bedside Echo in ED: Findings include cardiomegaly, trace pericardial effusion without significant right ventricle or right atrial collapse. Left ventricle appears somewhat enlarged. Impression: Congestive Heart Failure improving Right sided Pulmonary Infiltrates s/o Pneumonia Right pleural effusion AMRIT (acute kidney injury) Small Pericardial effusion Plan: Diurese PRN AB Monitor labs PPX O2 PRN Thoracentesis ST evaluation R/O DVT Laboratory Tests Noted EKG: Rate: tachycardiac Rhythm: NSR, Sinus tachycardia rate 115 bpm, prolonged QTC at 522 ms, normal axis. Low voltage in the limb leads and left bundle branch block pattern in the precordial leads. Chest X-Ray: Cardiomegaly, bilateral congestion, RLL effusion, questionable infiltrate in the right lower lobe Subjective ROS Limited/Unobtainable: No Allergies: Coded Allergies: No Known Allergies (Unverified , 10/26/18) Objective Last 24 Hour Vital Signs Date Time Temp Pulse Resp B/P (MAP) Pulse Ox O2 Delivery O2 Flow Rate FiO2 11/03/18 08:00 97.5 113 22 106/66 (79) 93 11/03/18 04:00 106 11/03/18 04:00 96.8 110 18 112/76 (88) 100 11/03/18 00:00 97.0 108 16 107/71 (83) 98 11/03/18 00:00 110 11/02/18 21:00 Room Air 11/02/18 20:25 104 92/60 11/02/18 20:00 104 11/02/18 20:00 96.4 108 18 92/60 (71) 97 11/02/18 16:00 97.3 102 23 96/62 (73) 94 11/02/18 16:00 93 11/02/18 12:00 97.0 105 22 107/66 (80) 95 11/02/18 12:00 104 11/02/18 09:00 Room Air 11/02/18 08:58 120/79 Intake and Output 11/02/18 11/03/18 19:00 07:00 Intake Total 640 ml 360 ml Balance 640 ml 360 ml Intake Oral 640 ml 360 ml # Voids 3 3 Current Medications Medications (Trade) Dose Ordered Sig/Judah Route PRN Reason Start Time Stop Time Status Last Admin Dose Admin Carvedilol (Coreg) 12.5 mg EVERY 12 HOURS ORAL 11/02/18 21:00 11/26/18 20:59 Docusate Sodium (Colace) 100 mg TID ORAL 11/01/18 13:00 11/26/18 17:59 11/02/18 17:26 Furosemide (Lasix) 40 mg EVERY 12 HOURS ORAL 11/01/18 21:00 12/01/18 20:59 11/02/18 20:44 Heparin Sodium (Porcine) (Heparin 5000 units/ml) 5,000 units EVERY 12 HOURS SUBQ 10/28/18 09:00 11/26/18 08:59 11/01/18 20:59 Lisinopril (Zestril) 5 mg DAILY ORAL 11/02/18 09:00 12/02/18 08:59 11/02/18 08:58 Olanzapine (ZyPREXA Zydis) 20 mg DAILY@1700 ORAL 10/30/18 17:00 11/29/18 16:59 11/02/18 17:26 Pantoprazole (Protonix) 40 mg ACBREAKFAST ORAL 10/29/18 06:30 11/27/18 06:29 11/03/18 05:37 Spironolactone (Aldactone) 25 mg DAILY ORAL 10/28/18 09:00 11/27/18 08:59 11/02/18 08:58 Thiamine HCl (Vitamin B1) 100 mg DAILY ORAL 10/28/18 09:00 11/26/18 08:59 11/02/18 08:58 Lexa El MD Nov 03, 2018 08:58
--- NOTE | 2018-11-03 08:58 | General Progress Note ---
Assessment/Plan Problem List: (1) CHF (congestive heart failure) ICD Codes: I50.9 - Heart failure, unspecified SNOMED: 63300622 (2) Pericardial effusion ICD Codes: I31.3 - Pericardial effusion (noninflammatory) SNOMED: 938285062 (3) Pleural effusion ICD Codes: J90 - Pleural effusion, not elsewhere classified SNOMED: 39643630 (4) Pneumonia ICD Codes: J18.9 - Pneumonia, unspecified organism SNOMED: 227731904 (5) AMRIT (acute kidney injury) ICD Codes: N17.9 - Acute kidney failure, unspecified SNOMED: 2734800, 89466826 Status: stable, progressing Assessment/Plan: (1) Abnormal LFTs ICD Codes: R94.5 - Abnormal results of liver function studies SNOMED: 892241193 (2) Pleural effusion ICD Codes: J90 - Pleural effusion, not elsewhere classified SNOMED: 97070582 Status: stable, unchanged Assessment/Plan US reviewed >> Cholelithiasis. Gallbladder wall thickening. Negative for dilated bile ducts. Liver has normal echogenicity. drug screen negative Hepatitis panel negative symptomatic treatment fu pulm and cardiology recs bowel regime zofran prn ppi follow labs Subjective ROS Limited/Unobtainable: Yes Allergies: Coded Allergies: No Known Allergies (Unverified , 10/26/18) Subjective c/o SOB Objective Last 24 Hour Vital Signs Date Time Temp Pulse Resp B/P (MAP) Pulse Ox O2 Delivery O2 Flow Rate FiO2 11/03/18 08:00 97.5 113 22 106/66 (79) 93 11/03/18 04:00 106 11/03/18 04:00 96.8 110 18 112/76 (88) 100 11/03/18 00:00 97.0 108 16 107/71 (83) 98 11/03/18 00:00 110 11/02/18 21:00 Room Air 11/02/18 20:25 104 92/60 11/02/18 20:00 104 11/02/18 20:00 96.4 108 18 92/60 (71) 97 11/02/18 16:00 97.3 102 23 96/62 (73) 94 11/02/18 16:00 93 11/02/18 12:00 97.0 105 22 107/66 (80) 95 11/02/18 12:00 104 11/02/18 09:00 Room Air 11/02/18 08:58 120/79 Intake and Output 11/02/18 11/03/18 19:00 07:00 Intake Total 640 ml 360 ml Balance 640 ml 360 ml Intake Oral 640 ml 360 ml # Voids 3 3 Height (Feet): 5 Height (Inches): 11.00 Weight (Pounds): 159 General Appearance: alert EENT: normal ENT inspection Neck: supple Cardiovascular: normal rate Respiratory/Chest: decreased breath sounds Abdomen: normal bowel sounds, non tender, soft Extremities: non-tender Danny Natarajan MD Nov 03, 2018 08:58
[2018-11-03] MEDS: Heparin 5000 units/ml inj SUBQ SCH (09:00)
[2018-11-03] MEDS: Carvedilol 12.5mg tab ORAL SCH (09:00)
--- NOTE | 2018-11-03 09:37 | Nephrology Progress Note ---
Assessment/Plan Problem List: (1) Cardiorenal syndrome (2) CHF (congestive heart failure) (3) Pericardial effusion (4) Pleural effusion (5) Abnormal LFTs Assessment Anasarca: likely cardiac and cardiomyopathy Has proteinuria Cr mildly elevated on admission now wnl h/o Schizophrenia Plan increased Coreg dose 2D Echo noted Abd KEIRA noted DC planning?? Monitor renal parameters TFT HgbA1c noted per current management optimize cardiac status Psych consult per PMD ( schizophrenia history- uncoaporative) echo: Mild left ventricular enlargement . Global left ventricular hypokinesis with anteroseptal dyskinesis ,ischemic cardiomyopathy can not be excluded . Left ventricular ejection fraction estimated to be 20-25%. KEIRA: To-and-fro flow within the main portal vein may indicate portal hypertension Hepatomegaly Ascites Cholelithiasis. Gallbladder wall thickening may be related to the hemodynamic changes causing the ascites, but the possibility of acute cholecystitis should also be considered. Consider hepatobiliary nuclear scan if there is high clinical suspicion Negative for dilated bile ducts Bilateral pleural effusions Subjective ROS Limited/Unobtainable: No Objective Objective Last 24 Hour Vital Signs Date Time Temp Pulse Resp B/P (MAP) Pulse Ox O2 Delivery O2 Flow Rate FiO2 11/03/18 08:00 97.5 113 22 106/66 (79) 93 11/03/18 04:00 106 11/03/18 04:00 96.8 110 18 112/76 (88) 100 11/03/18 00:00 97.0 108 16 107/71 (83) 98 11/03/18 00:00 110 11/02/18 21:00 Room Air 11/02/18 20:25 104 92/60 11/02/18 20:00 104 11/02/18 20:00 96.4 108 18 92/60 (71) 97 11/02/18 16:00 97.3 102 23 96/62 (73) 94 11/02/18 16:00 93 11/02/18 12:00 97.0 105 22 107/66 (80) 95 11/02/18 12:00 104 Intake and Output 11/02/18 11/03/18 19:00 07:00 Intake Total 640 ml 360 ml Balance 640 ml 360 ml Intake Oral 640 ml 360 ml # Voids 3 3 Height (Feet): 5 Height (Inches): 11.00 Weight (Pounds): 159 General Appearance: no apparent distress Objective no change Jasbir Corbin MD Nov 03, 2018 09:37
[2018-11-03] MEDS: Thiamine 100mg tab ORAL SCH (09:55)
[2018-11-03] MEDS: Lisinopril 2.5mg tab ORAL SCH (09:55)
[2018-11-03] MEDS: Spironolactone 25mg tab ORAL SCH (09:56)
[2018-11-03] MEDS: Docusate 100mg cap ORAL SCH ×3 (09:56→17:52)
[2018-11-03] MEDS: Furosemide 40mg tab ORAL SCH (09:56)
--- NOTE | 2018-11-03 11:36 | NUR ---
NURSE NOTES: called Dr. Rollins"s office @ [phone] and left a Message with Eunice regarding Clearance from Cardio.
[2018-11-03 12:00] VITALS: BP 99/69
--- NOTE | 2018-11-03 12:42 | NUR ---
NURSE NOTES: called Dr. Rollins"s office for second time @ [phone] and left a Message with Eunice regarding Clearance from Cardio.
[2018-11-03] MEDS ORDERED: Tubing IV Secondary IV ONE (13:32)
--- NOTE | 2018-11-03 13:35 | Infectious Diseases Prog Note ---
Assessment/Plan Assessment/Plan IMPRESSION: 1. Community-acquired pneumonia.treated 2. Systolic CHF, EF =20-25% 3. Acute kidney failure.improving 4. Schizophrenia. 5. Proteinuria. 6. Hepatomegaly 7. Portal hypertension 8. LBBB 9. Pleural effusion RECOMMENDATION: Observe off antibiotic Subjective ROS Limited/Unobtainable: Yes Constitutional: Reports: no symptoms, other - feels better Musculoskeletal: Reports: pain, other - R leg Allergies: Coded Allergies: No Known Allergies (Unverified , 10/26/18) Objective Vital Signs Last 24 Hour Vital Signs Date Time Temp Pulse Resp B/P (MAP) Pulse Ox O2 Delivery O2 Flow Rate FiO2 11/03/18 12:00 97.0 108 23 99/69 (79) 96 11/03/18 09:55 106/66 11/03/18 09:00 Room Air 11/03/18 09:00 113 106/66 11/03/18 08:00 108 11/03/18 08:00 97.5 113 22 106/66 (79) 93 11/03/18 04:00 106 11/03/18 04:00 96.8 110 18 112/76 (88) 100 11/03/18 00:00 97.0 108 16 107/71 (83) 98 11/03/18 00:00 110 11/02/18 21:00 Room Air 11/02/18 20:25 104 92/60 11/02/18 20:00 104 11/02/18 20:00 96.4 108 18 92/60 (71) 97 11/02/18 16:00 97.3 102 23 96/62 (73) 94 11/02/18 16:00 93 Height (Feet): 5 Height (Inches): 11.00 Weight (Pounds): 159 General Appearance: no acute distress HEENT: mucous membranes moist Respiratory/Chest: lungs clear Cardiovascular: normal rate Abdomen: soft, non tender Extremities: other - legs edema decreasing Neurologic/Psychiatric: alert, responsive Current Medications Medications (Trade) Dose Ordered Sig/Judah Route PRN Reason Start Time Stop Time Status Last Admin Dose Admin Carvedilol (Coreg) 12.5 mg EVERY 12 HOURS ORAL 11/02/18 21:00 11/26/18 20:59 Docusate Sodium (Colace) 100 mg TID ORAL 11/01/18 13:00 11/26/18 17:59 11/03/18 13:05 Furosemide (Lasix) 40 mg EVERY 12 HOURS ORAL 11/01/18 21:00 12/01/18 20:59 11/03/18 09:56 Heparin Sodium (Porcine) (Heparin 5000 units/ml) 5,000 units EVERY 12 HOURS SUBQ 10/28/18 09:00 11/26/18 08:59 11/01/18 20:59 Lisinopril (Zestril) 5 mg DAILY ORAL 11/02/18 09:00 12/02/18 08:59 11/03/18 09:55 Olanzapine (ZyPREXA Zydis) 20 mg DAILY@1700 ORAL 10/30/18 17:00 11/29/18 16:59 11/02/18 17:26 Pantoprazole (Protonix) 40 mg ACBREAKFAST ORAL 10/29/18 06:30 11/27/18 06:29 11/03/18 05:37 Spironolactone (Aldactone) 25 mg DAILY ORAL 10/28/18 09:00 11/27/18 08:59 11/03/18 09:56 Thiamine HCl (Vitamin B1) 100 mg DAILY ORAL 10/28/18 09:00 11/26/18 08:59 11/03/18 09:55 Geoffrey Velasquez MD Nov 03, 2018 13:35
--- NOTE | 2018-11-03 14:55 | Hematology/Onc Progress Note ---
Assessment/Plan Assessment/Plan # Elevated d-dimer on admission - have reviewed imaging, can be elevated in setting of acute exacerbation of chf, the nuclear v/q scan was negative --> v/q scan was indeterminate pe probability --> venous duplex negative --> unlikely indicator in this setting of vte even --> on sq heparin as low risk # Coagulopathy in the setting of fluid overload likely liver congestion related --> likely inr is elevated due to above --> periodically recheck inr/pt --> 10/26 inr 1.2 # Anemia of chronic disease --> hgb currently >12, no w/u needed at this time --> likely chf related, multifactorial process --> trend as needed # Right sided Pulmonary Infiltrates s/o Pneumonia --> diuresis as per pulm --> very poor compliant --> is on abx ctx/doxy--> per id OFF abx # Right pleural effusion --> thora prn # AMRIT (acute kidney injury) --> per renal # Small Pericardial effusion # Pna -- s/p abx # Noncompliance # Dvt ppx with heparin sq The timing of this note does not necessarily reflect the time of the patient was seen. Greatly appreciate consultation. Subjective HEENT: Denies: no symptoms, eye pain, blurred vision, tearing, double vision, ear pain, ear discharge, nose pain, nose congestion, throat pain, throat swelling, mouth pain, mouth swelling, other Cardiovascular: Denies: no symptoms, chest pain, edema, irregular heart rate, lightheadedness, palpitations, syncope, other Respiratory: Denies: no symptoms, cough, shortness of breath, SOB with excertion, SOB at rest, sputum, wheezing, other Gastrointestinal/Abdominal: Denies: no symptoms, abdomen distended, abdominal pain, black stools, tarry stools, blood in stool, constipated, diarrhea, difficulty swallowing, nausea, poor appetite, poor fluid intake, rectal bleeding , vomiting, other Genitourinary: Denies: no symptoms, burning, discharge, frequency, flank pain, hematuria, incontinence, pain, urgency, other Endocrine: Denies: no symptoms, excessive sweating, flushing, intolerance to cold, intolerance to heat, increased hunger, increased thirst, increased urine, unexplained weight gain, unexplained weight loss, other Allergies: Coded Allergies: No Known Allergies (Unverified , 10/26/18) Subjective 10/29: no bleeding, no chills, cbc stable, d-dimer elevated before, sob better 10/30: no night sweats, labs have been reviewed, inr was alex, refusing meds 11/01: as per cards, may need cath, no f/c, eating this am 11/02: awake and alert, no acute events, no sob, afebrile 11/03: off antibiotics, no f/c, no bleeding noted Objective Objective Current Medications Medications (Trade) Dose Ordered Sig/Judah Route PRN Reason Start Time Stop Time Status Last Admin Dose Admin Carvedilol (Coreg) 12.5 mg EVERY 12 HOURS ORAL 11/02/18 21:00 11/26/18 20:59 Docusate Sodium (Colace) 100 mg TID ORAL 11/01/18 13:00 11/26/18 17:59 11/03/18 13:05 Furosemide (Lasix) 40 mg EVERY 12 HOURS ORAL 11/01/18 21:00 12/01/18 20:59 11/03/18 09:56 Heparin Sodium (Porcine) (Heparin 5000 units/ml) 5,000 units EVERY 12 HOURS SUBQ 10/28/18 09:00 11/26/18 08:59 11/01/18 20:59 Lisinopril (Zestril) 5 mg DAILY ORAL 11/02/18 09:00 12/02/18 08:59 11/03/18 09:55 Olanzapine (ZyPREXA Zydis) 20 mg DAILY@1700 ORAL 10/30/18 17:00 11/29/18 16:59 11/02/18 17:26 Pantoprazole (Protonix) 40 mg ACBREAKFAST ORAL 10/29/18 06:30 11/27/18 06:29 11/03/18 05:37 Spironolactone (Aldactone) 25 mg DAILY ORAL 10/28/18 09:00 11/27/18 08:59 11/03/18 09:56 Thiamine HCl (Vitamin B1) 100 mg DAILY ORAL 10/28/18 09:00 11/26/18 08:59 11/03/18 09:55 Last 24 Hour Vital Signs Date Time Temp Pulse Resp B/P (MAP) Pulse Ox O2 Delivery O2 Flow Rate FiO2 11/03/18 12:00 97.0 108 23 99/69 (79) 96 11/03/18 09:55 106/66 11/03/18 09:00 Room Air 11/03/18 09:00 113 106/66 11/03/18 08:00 108 11/03/18 08:00 97.5 113 22 106/66 (79) 93 11/03/18 04:00 106 11/03/18 04:00 96.8 110 18 112/76 (88) 100 11/03/18 00:00 97.0 108 16 107/71 (83) 98 11/03/18 00:00 110 11/02/18 21:00 Room Air 11/02/18 20:25 104 92/60 11/02/18 20:00 104 11/02/18 20:00 96.4 108 18 92/60 (71) 97 11/02/18 16:00 97.3 102 23 96/62 (73) 94 11/02/18 16:00 93 11/02/18 12:00 97.0 105 22 107/66 (80) 95 11/02/18 12:00 104 11/02/18 09:00 Room Air 11/02/18 08:58 120/79 11/02/18 08:57 127 120/79 11/02/18 08:00 122 11/02/18 08:00 98.3 127 18 120/79 (93) 98 11/02/18 04:00 97.7 125 18 125/93 (104) 96 11/02/18 04:00 120 11/02/18 03:29 120 11/02/18 00:00 97.5 116 16 100/64 (76) 96 11/01/18 23:31 114 11/01/18 20:57 95 109/75 11/01/18 20:00 97.8 115 20 109/75 (86) 95 11/01/18 19:35 119 11/01/18 16:00 97.2 113 20 110/77 (88) 97 11/01/18 16:00 110 Intake and Output 11/02/18 11/03/18 19:00 07:00 Intake Total 640 ml 360 ml Balance 640 ml 360 ml Intake Oral 640 ml 360 ml # Voids 3 3 Labs Test 11/01/18 06:14 11/02/18 05:29 White Blood Count 4.8 K/UL (4.8-10.8) 5.5 K/UL (4.8-10.8) Red Blood Count 4.79 M/UL (4.70-6.10) 5.08 M/UL (4.70-6.10) Hemoglobin 14.6 G/DL (14.2-18.0) 15.3 G/DL (14.2-18.0) Hematocrit 45.4 % (42.0-52.0) 48.4 % (42.0-52.0) Mean Corpuscular Volume 95 FL (80-99) 95 FL (80-99) Mean Corpuscular Hemoglobin 30.4 PG (27.0-31.0) 30.1 PG (27.0-31.0) Mean Corpuscular Hemoglobin Concent 32.1 G/DL (32.0-36.0) 31.6 G/DL (32.0-36.0) Red Cell Distribution Width 14.2 % (11.6-14.8) 14.3 % (11.6-14.8) Platelet Count 171 K/UL (150-450) 189 K/UL (150-450) Mean Platelet Volume 8.6 FL (6.5-10.1) 7.9 FL (6.5-10.1) Neutrophils (%) (Auto) 42.0 % (45.0-75.0) 45.4 % (45.0-75.0) Lymphocytes (%) (Auto) 39.3 % (20.0-45.0) 36.4 % (20.0-45.0) Monocytes (%) (Auto) 13.7 % (1.0-10.0) 13.9 % (1.0-10.0) Eosinophils (%) (Auto) 3.6 % (0.0-3.0) 2.9 % (0.0-3.0) Basophils (%) (Auto) 1.5 % (0.0-2.0) 1.4 % (0.0-2.0) Sodium Level 144 MMOL/L (136-145) 145 MMOL/L (136-145) Potassium Level 3.8 MMOL/L (3.5-5.1) 3.8 MMOL/L (3.5-5.1) Chloride Level 106 MMOL/L (98-107) 108 MMOL/L (98-107) Carbon Dioxide Level 31 MMOL/L (21-32) 31 MMOL/L (21-32) Anion Gap 7 mmol/L (5-15) 6 mmol/L (5-15) Blood Urea Nitrogen 24 mg/dL (7-18) 30 mg/dL (7-18) Creatinine 1.1 MG/DL (0.55-1.30) 1.3 MG/DL (0.55-1.30) Estimat Glomerular Filtration Rate > 60 mL/min (>60) 55.9 mL/min (>60) Glucose Level 82 MG/DL (74-106) 100 MG/DL (74-106) Calcium Level 9.1 MG/DL (8.5-10.1) 9.1 MG/DL (8.5-10.1) Phosphorus Level 2.8 MG/DL (2.5-4.9) Magnesium Level 2.0 MG/DL (1.8-2.4) Total Bilirubin 1.0 MG/DL (0.2-1.0) 1.0 MG/DL (0.2-1.0) Direct Bilirubin 0.3 MG/DL (0.0-0.3) Aspartate Amino Transf (AST/SGOT) 34 U/L (15-37) 30 U/L (15-37) Alanine Aminotransferase (ALT/SGPT) 36 U/L (12-78) 39 U/L (12-78) Alkaline Phosphatase 115 U/L (46-116) 135 U/L (46-116) Total Protein 6.1 G/DL (6.4-8.2) 6.7 G/DL (6.4-8.2) Albumin 2.8 G/DL (3.4-5.0) 3.1 G/DL (3.4-5.0) Globulin 3.6 g/dL Albumin/Globulin Ratio 0.9 (1.0-2.7) Height (Feet): 5 Height (Inches): 11.00 Weight (Pounds): 159 Objective Vitals: reviewed General Appearance: NAD HEENT: normocephalic, atraumatic Neck: non-tender, normal alignment Respiratory/Chest: ++ bilateral crackles noted on exam Cardiovascular/Chest: normal peripheral pulses, normal rate Abdomen: normal bowel sounds, soft Ext: 2+ edema lower ext noted Duncan Pereira MD Nov 03, 2018 14:55
[2018-11-03 16:00] VITALS: BP 108/78
--- NOTE | 2018-11-03 17:21 | Cardiac Electrophysiology PN ---
Assessment/Plan Assessment/Plan 1. CHF and EF only 20 %. Continue Lasix, Coreg, lisinopril, Aldactone. Needs Cardiac cath eval when mentally stable if he agrees and if insurance approves and in a facility that it can be done 2. Complete left bundle-branch block. ry. 3. Pleural effusion. S/P 850cc Right thoracentesis. 4. Schizophrenia, on Zyprexa ALYSIA RN Subjective Subjective No events. DC planning home today Objective Last 24 Hour Vital Signs Date Time Temp Pulse Resp B/P (MAP) Pulse Ox O2 Delivery O2 Flow Rate FiO2 11/03/18 12:00 97.0 108 23 99/69 (79) 96 11/03/18 09:55 106/66 11/03/18 09:00 Room Air 11/03/18 09:00 113 106/66 11/03/18 08:00 108 11/03/18 08:00 97.5 113 22 106/66 (79) 93 11/03/18 04:00 106 11/03/18 04:00 96.8 110 18 112/76 (88) 100 11/03/18 00:00 97.0 108 16 107/71 (83) 98 11/03/18 00:00 110 11/02/18 21:00 Room Air 11/02/18 20:25 104 92/60 11/02/18 20:00 104 11/02/18 20:00 96.4 108 18 92/60 (71) 97 Intake and Output 11/02/18 11/03/18 19:00 07:00 Intake Total 640 ml 360 ml Balance 640 ml 360 ml Intake Oral 640 ml 360 ml # Voids 3 3 Objective HEAD AND NECK: Mild JVD. LUNGS: Decreased breath sounds. CARDIOVASCULAR: Regular S1 and S2 with no gallop. ABDOMEN: Soft. EXTREMITIES: 1+ pitting edema up Teofilo Rollins MD Nov 03, 2018 17:21
[2018-11-03] MEDS: ZyPREXA Zydis 10mg tab ORAL SCH (17:52)
--- NOTE | 2018-11-03 19:05 | NUR ---
NURSE NOTES: Discharge Instruction given, Patient verbalized understanding. cardiac monitor removed. Vital signs are within normal limits, Patient in stable condition, No acute distress noted. Escorted to lobby and Left with friend via private vehicle.
--- NOTE | 2018-11-03 22:15 | Progress Note ---
DATE: 11/03/2018 SUBJECTIVE: The patient denies shortness of breath. Denies nausea, vomiting, diarrhea, fever, chills. Chest is clear to auscultation. ASSESSMENT AND PLAN: Shortness of breath, wheezing, cough are improving. We will discharge if transportation associate and mental measurements teacher clears the patient. The patient is hemodynamically stable. Electrolytes improved. Edema has decreased in the lower extremity. Cate Gonzales M.D. DR: Talita JOB#: [id number] CC:
--- NOTE | 2018-11-04 09:19 | Discharge Summary ---
Discharge Summary Discharge Summary _ DATE OF ADMISSION: 10/26/2018 DATE OF DISCHARGE: 11/03/2018 DISCHARGED BY: REASON FOR ADMISSION: 63 years old male with past medical history of schizophrenia, presented for evaluation due to scrotal pain and edema along with difficulty breathing. Patient reported that symptoms were present for some time at least 1 week. Patient noted worsening exertional dyspnea and shortness of breath. No chest pain. Patient also reported diffuse swelling of the skin from his abdomen down and enlargement of the scrotum with some pain. P atient also reported pain with urination. He quit smoking 1 week ago , and he denied alcohol use. No recent fever or chills. No vomiting or diarrhea. Upon evaluation vital signs revealed tachycardia with heart rate 114 , pulse oximetry was stable on room air. Laboratory work-up revealed no leukocytosis , hemoglobin 16.4, hematocrit 49.6. Potassium 5.2, sodium 145. BUN 31, creatinine 1.4. Glucose 79. Elevated total and direct bilirubin. Stable LFT and lipase. Troponin 0.023. ProBNP 37350. EKG revealed sinus tachycardia with left bundle branch block. Elevated d-dimer 2.77. INR 1.2. ABG on room air was stable. Urinalysis revealed +2 protein, no evidence of UTI. Chest x-ray demonstrated right-sided pleural effusion. Right basilar masslike opacity probably some focal infiltrate or intrafissural fluid. Patient subsequently admitted to telemetry floor for further management CONSULTANTS: ad taker Dr. Cook pulmonary Dr. El ID specialist Dr. Cameron GI specialist Dr. Natarajan retail service representative Dr. Corbin materials handler/oncologist Dr. Pereira [facility]: Patient admitted to telemetry floor. Echocardiogram revealed left ventricular ejection fraction of 20 to 25%. No evidence of left ventricular hypertrophy. Global left ventricular hypokinesis with anteroseptal dyskinesis, ischemic cardiomyopathy could not be excluded. Pleural effusion noted. Moderate mitral and tricuspid regurgitation. Right ventricular systolic pressure of 48 consistent with moderate pulmonary hypertension. Patient started on diuresis with close monitoring of volumes and cardiorenal parameters. System Administration Advisor closely followed. Guideline directed medical therapy with beta-chadd , JYOTI inhibitor, Lasix , and Aldactone continued. Per ad taker, patient will require cardiac catheterization. Lipid panel was stable. Serial troponin were negative. Patient was carefully monitored on telemetry floor throughout the stay in the hospital due to complete left bundle branch block and systolic dysfunction. Patient appeared to be very noncompliant and refused most of his medication. Venous duplex bilateral lower extremity reveal no evidence of acute DVT. Patient undergone ultrasound-guided thoracentesis of right pleural effusion yielding n 850 mL of pleural fluid. Architect Marine closely followed. VQ scan revealed decreased perfusion posteriorly and inferiorly , likely reflecting pleural fluid and consolidation, demonstrated on chest x-ray. Larger area of decreased perfusion noted to the left lung base. Perfusion the remainder of the left lung was heterogeneous. Perfusion defect was likely explainable by abnormality demonstrated on chest radiograph. However in the absence of correlate of inhaled aerosol images , findings must be deemed intermediate probability for pulmonary emboli . DVT prophylaxis provided. Follow-up chest x-ray showed improved aeration. Architect Marine and ID specialist closely followed. Patient started on antibiotics for pneumonia. Supplemental oxygen provided as needed to keep pulse oximetry above 92%. Pulmonary toilet via handheld nebulizing therapy the bronchodilator provided as needed. Pleural fluid culture was negative. Patient status post treatment for community-acquired pneumonia. No fever ,no leukocytosis Infectious disease specialist recommended observe patient off antibiotics. Bre[employer] Service Technician followed. Per retail service representative, patient had cardiorenal syndrome. Anasarca was likely cardiac , due to significant cardiomyopathy with ejection fraction of 20%. Patient also noted to have proteinuria. Creatinine initially was elevated. Urine studies were done. Renal parameters and electrolytes were closely monitored, and electrolytes corrected as needed. Creatinine down to normal. Acute kidney injury resolved. Thyroid function test stable. Hemoglobin A1c 6.0. Blood sugar remained stable. No concentrated sweets diet provided GI specialist followed. Abdominal ultrasound revealed portal hypertension, hepatomegaly , ascites. Cholelithiasis. Gallbladder wall thickening, but was negative for dilated bile. Bilateral pleural effusion noted. Hepatitis panel was negative. Bowel regimen instituted. Patient started on proton pump inhibitor. Symptomatic treatment provided as needed. Antiemetic were on board as needed. Total bilirubin from 1.8 down to 1.0 , direct bilirubin from 0.8 down to 0.3 . LFT remained stable. Human Resources Assistant seen the patient. Patient initially had elevated d-dimer on admission. Per materials handler, d-dimer elevation was in setting of acute exacerbation of CHF , and unlikely indicator of thrombotic event in this setting. DVT prophylaxis provided. Hemoglobin and hematocrit were closely monitored with goal to keep hemoglobin above 7. Hemoglobin remained stable. Patient clinically stabilized, status post treatment for pneumonia. Pulse oximetry stable on room air. [place] [address] [place] [address]. Patient was stable for discharge home. FINAL DIAGNOSES Systolic congestive heart failure Cardiomyopathy with ejection fraction 20% Cardiorenal syndrome Community-acquired pneumonia,, status post treatment Right pleural effusion status post thoracentesis Small pericardial effusion Complete left bundle branch block Acute kidney injury-resolved Anasarca Proteinuria Portal hypertension Schizophrenia Abnormal bilirubin-resolved Elevated d-dimer Noncompliance DISCHARGE MEDICATIONS: See Medication Reconciliation list. DISCHARGE INSTRUCTIONS: Patient was discharged home. Follow up with primary care provider in one week. Patient was advised on compliance with medication regimen. Patient was also advised to have cardiac catheterization done in the near future as per his insurance. I have been assigned to dictate discharge summary for this account. I was not involved in the patient's management. Carito Romo NP Nov 04, 2018 09:19
--- NOTE | 2018-11-04 13:41 | NUR ---
*-* INSURANCE *-* DISCHARGE SUMMARY HAS BEEN FAXED TO: [facility] [place]: RENÉ VINCENT# [id number] P: [phone] F: [phone] F# [phone] P: [phone]
== END 2018-11-03 19:05 | disposition home or self-care (01) | DRG 194 ==
LOC: EDBD 18:47 → EMR 19:30 → EDBEDREQSVC 21:26 → 2W 21:50 → EDBEDREQ 22:10 → 2E 10-28 06:19
PROC: 0W993ZZ Drainage of Right Pleural Cavity, Percutaneous Approach (ICD-10-PCS; principal; 2018-10-27)
DX: I13.0 Hypertensive heart and chronic kidney disease with heart failure and stage 1 through stage 4 chronic kidney disease, or unspecified chronic kidney disease (principal); J18.9 Pneumonia, unspecified organism; I50.23 Acute on chronic systolic (congestive) heart failure; N17.9 Acute kidney failure, unspecified; K76.6 Portal hypertension; D68.8 Other specified coagulation defects; I31.3 Pericardial effusion (noninflammatory); N18.9 Chronic kidney disease, unspecified; I27.20 Pulmonary hypertension, unspecified; I44.7 Left bundle-branch block, unspecified; Z91.19 Patient's noncompliance with other medical treatment and regimen; J90 Pleural effusion, not elsewhere classified; F20.9 Schizophrenia, unspecified; Z87.891 Personal history of nicotine dependence; R80.9 Proteinuria, unspecified; R16.0 Hepatomegaly, not elsewhere classified; D63.8 Anemia in other chronic diseases classified elsewhere; K80.20 Calculus of gallbladder without cholecystitis without obstruction; N50.819 Testicular pain, unspecified; I34.0 Nonrheumatic mitral (valve) insufficiency; I36.1 Nonrheumatic tricuspid (valve) insufficiency
CPT/HCPCS: 36415; 36600; 71045; 76700; 76942; 78580; 80048; 80053; 80061; 80076; 80307; 81003; 81050; 82140; 82248; 82378; 82550; 82553; 82575; 82607; 82746; 82803; 82977; 83036; 83615; 83690; 83735; 83880; 84100; 84156; 84439; 84443; 84484; 84550; 85025; 85379; 85610; 85730; 86140; 86705; 86709; 86803; 87070; 87205; 87340; 89051; 93005; 93306; 93970; 94640; 94664; 96374; 99291; J3490